=== PATIENT | female | born 2000 | race African-American/Black ===

== ENCOUNTER 2021-04-02 09:32 | Emergency (ER) | payer OTHER ==
[2021-04-02 10:24] LABS: BASOPHILS % (AUTO) 0.2 %; EOSINOPHILS % (AUTO) 0.7 %; HCT - HEMATOCRIT 35.4 % (37.0-47.0); HGB - HEMOGLOBIN 11.5 g/dL (12.0-16.0); MEAN CORPUSCULAR HEMOGLOBIN 28.7 pg (27.0-31.0); MEAN CORPUSCULAR HGB CONC 32.5 g/dL (32.0-36.0); MEAN CORPUSCULAR VOLUME 88.3 fL (81.0-99.0); MEAN PLATELET VOLUME 12.9 fL (7.9-10.8); MONOCYTES % (AUTO) 8.9 %; PLT - PLATELET COUNT 152 10^3/uL (130-450); RED BLOOD COUNT 4.01 10^6/uL (4.20-5.40); RED CELL DISTRIBUTION WIDTH 13.1 % (12.0-15.0); WHITE BLOOD COUNT 5.7 x10^3/uL (4.8-10.8)
[2021-04-02 10:26] LABS: ABNORMAL LYMPHS % (MANUAL) 0 %; BAND NEUTROPHILS % (MANUAL) 0 %
[2021-04-02 10:31] LABS: ALBUMIN 4.3 g/dL (3.2-5.5); ALBUMIN/GLOBULIN RATIO 1.5 (1.0-2.2); BILIRUBIN,TOTAL 0.7 mg/dL (0.2-1.0); CALCIUM 9.1 mg/dL (8.5-10.3); CREATININE 0.8 mg/dL (0.4-1.0); POTASSIUM 3.5 mmol/L (3.5-5.0); TOTAL PROTEIN 7.2 g/dL (6.7-8.2)
[2021-04-02 10:57] LABS: BASOPHILS # (MANUAL) 0.1 10^3/uL (0-0.1); BASOPHILS % (MANUAL) 2 %; EOSINOPHILS # (MANUAL) 0.1 10^3/uL (0-0.7); LYMPHOCYTES # (MANUAL) 2.2 10^3/uL (1.5-3.5); LYMPHOCYTES % (MANUAL) 35 %; MONOCYTES # (MANUAL) 0.4 10^3/uL (0.0-1.0); NEUTROPHILS # (MANUAL) 2.9 10^3/uL (1.5-6.6); REACTIVE LYMPHS % (MANUAL) 4 %
[2021-04-02 10:58] LABS: DIFFERENTIAL COMMENT MANUAL DIFFERENTIAL; PLATELET MORPHOLOGY RARE GIANT PLATELETS (NORMAL); WBC MORPHOLOGY (MULTIPLE) 1+ REACTIVE LYMPHS (NORMAL)
--- NOTE | 2021-04-02 12:07 | ED Physician Documentation ---
History of Present Illness - Stated complaint Stated Complaint: FEMAL - Chief complaint Chief Complaint: Abd Pain - Additonal information Additional information: 21-year-old female presents emergency department for evaluation of cramping and heavy menstrual flow. Reports that her cycle began yesterday. LMP was 03/02/2021. She reports that she has Nexplanon in place but over the last 6 months or so she is typically been getting 1-2 cycles per month each lasting 3 to 4 days. Over the last 15 or so hours she has used about seven tampons which she feels is excessive. She has had no chest pain, shortness of air, nausea or near syncope. She has taken ibuprofen without relief of the menstrual cramping. No fevers. Denies any pertinent past medical or surgical history. Review of Systems Constitutional: denies: Fever, Chills Eyes: reports: Reviewed and negative Throat: reports: Reviewed and negative Cardiac: reports: Reviewed and negative Respiratory: reports: Reviewed and negative GI: reports: Reviewed and negative : reports: LMP (03/02/2021), Vaginal bleeding, Irregular menses. denies: Dysuria, Frequency, Hesitancy Skin: reports: Reviewed and negative Musculoskeletal: reports: Reviewed and negative Neurologic: reports: Reviewed and negative PD PAST MEDICAL HISTORY - Allergies Allergies/Adverse Reactions: Allergies Allergy/AdvReac Type Severity Reaction Status Date / Time No Known Drug Allergies Allergy Verified 04/02/21 10:01 PD ED PE NORMAL - General General: Alert and oriented X 3, No acute distress - HEENT HEENT: PERRL - Neck Neck: Supple, no meningeal sign, No adenopathy - Cardiac Cardiac: RRR, No murmur, No gallop - Respiratory Respiratory: No respiratory distress, Clear bilaterally - Abdomen Abdomen: Normal bowel sounds, Soft, Non distended. No: Non tender (Very mild lower midline pelvic tenderness. No guarding or rebound. Nonlateralizing.) - Back Back: No CVA TTP, No spinal TTP - Derm Derm: Normal color, Warm and dry, No rash - Neuro Neuro: Alert and oriented X 3, automobile parker 2-12 intact, No motor deficit Eye Opening: Spontaneous Motor: Obeys Commands Verbal: Oriented GCS Score: 15 - Psych Psych: Normal mood Results - Vitals Vitals: Vital Signs - 24 hr 04/02/21 04/02/21 09:56 12:25 Temperature 37.1 C Heart Rate 79 65 Respiratory 15 20 Rate Blood Pressure 102/68 178/73 H O2 Saturation 99 98 Oxygen O2 Source Room air - Labs Labs: Laboratory Tests 04/02/21 04/02/21 04/02/21 10:12 10:12 12:15 WBC 5.7 RBC 4.01 L Hgb 11.5 L Hct 35.4 L MCV 88.3 MCH 28.7 MCHC 32.5 RDW 13.1 Plt Count 152 MPV 12.9 H Neut # (Auto) Not Reportable Lymph # (Auto) Not Reportable [place] # (Auto) Not Reportable Eos # (Auto) Not Reportable Baso # (Auto) Not Reportable Absolute Nucleated RBC Not Reportable Total Counted 100 Band Neuts % (Manual) 0 Reactive Lymphs % (Man) 4 Abnorm Lymph % (Manual) 0 Nucleated RBC % Not Reportable Neutrophils # (Manual) 2.9 Lymphocytes # (Manual) 2.2 Monocytes # (Manual) 0.4 Eosinophils # (Manual) 0.1 Basophils # (Manual) 0.1 Differential Comment MANUAL DIFFERENTIAL WBC Morphology 1+ REACTIVE LYMPHS Platelet Morphology RARE GIANT PLATELETS Sodium 136 Potassium 3.5 Chloride 102 Carbon Dioxide 25 Anion Gap 9.0 BUN 12 Creatinine 0.8 Estimated GFR (MDRD) 110 Glucose 100 Calcium 9.1 Total Bilirubin 0.7 AST 22 ALT 18 Alkaline Phosphatase 38 L Total Protein 7.2 Albumin 4.3 Globulin 2.9 Albumin/Globulin Ratio 1.5 Lipase 22 Urine Color DARK YELLOW Urine Clarity CLEAR Urine pH 6.0 Ur Specific [place] >=1.030 H Urine Protein NEGATIVE Urine Glucose (UA) NEGATIVE Urine Ketones TRACE Urine Occult Blood TRACE-INTA Urine Nitrite NEGATIVE Urine Bilirubin NEGATIVE Urine Urobilinogen 0.2 (NORMAL) Ur Leukocyte Esterase NEGATIVE Ur Microscopic Review NOT INDICATED Urine Culture Comments NOT INDICATED Urine HCG, Qual NEGATIVE PD MEDICAL DECISION MAKING - ED course Complexity details: reviewed results, re-evaluated patient, considered differential, d/w patient ED course: 21-year-old female presents emergency department for heavier than expected vaginal bleeding/menstrual cycle that began yesterday. Since midnight she has used about 7 pads or tampons. No syncope. No chest pain or shortness of air. Screening labs reveal a very mild anemia with a hemoglobin of 11.5. Her electrolytes are otherwise unrevealing. She is not . Abdominal exam revealed a little bit of lower midline tenderness but nonfocal, nonlateralizing and nonperitoneal. Will defer pelvic ultrasound today. Patient does report that over the last 6 months she has begun to have 1-2 menstrual cycles a month. I have advised her to have very close follow-up with OB. She likely would benefit from an outpatient ultrasound to evaluate for other disorder such as fibroids. Emergent worrisome return precautions were discussed. Departure - Departure Disposition: 01 Home, Self Care Clinical Impression: Menorrhagia with irregular cycle Condition: Stable Record reviewed to determine appropriate education?: Yes Instructions: ED Bleeding Menstrual Heavy Comments: You were seen in the emergency department today for heavier than expected vaginal bleeding in your menstrual cycle as well as pelvic cramping. Your screening labs did not show any worrisome findings. Your hemoglobin is 11.5 which is just below the cutoff for normal. Your irregular menstrual cycles may be related to the Nexplanon however you should see [facility] and be referred for a pelvic ultrasound. Sometimes uterine fibroids can cause irregular and heavier than expected menstrual cycles with increased cramping. I recommend that you take Tylenol or ibuprofen [id number] for discomfort. Heating pad may help. Sometimes women will find relief from menstrual cramps by simply doing physical activity such as sit ups. If at any point you have fainting episodes, feel faint or lightheaded, have a resting heart rate greater than 120 or your bleeding does not improve after about 10 days and you are to return immediately to the ER for second evaluation.
[2021-04-02 12:38] LABS: BILIRUBIN,URINE NEGATIVE (NEGATIVE); GLUCOSE, URINE (UA) NEGATIVE (NEGATIVE); KETONES,URINE (UA) TRACE mg/dL (NEGATIVE); LEUKOCYTE ESTERASE, URINE NEGATIVE (NEGATIVE); NITRITE,URINE NEGATIVE (NEGATIVE); OCCULT BLOOD,URINE TRACE-INTA (NEGATIVE); PROTEIN,URINE NEGATIVE (NEGATIVE); UROBILINOGEN,URINE 0.2 (NORMAL) E.U./dL (NORMAL)
[2021-04-02 12:41] LABS: CLARITY,URINE CLEAR (CLEAR); HCG UR QUAL NEGATIVE
[2021-04-02 13:20] VITALS: BP 106/70
== END 2021-04-02 13:19 | disposition home or self-care (01) ==
LOC: ED 09:32
DX: N92.0 Excessive and frequent menstruation with regular cycle (principal); N92.6 Irregular menstruation, unspecified; D64.9 Anemia, unspecified
CPT/HCPCS: 36415; 80053; 81001; 81003; 81025; 83690; 85025; 87086; 99282; 99284

== ENCOUNTER 2021-05-20 12:44 | Emergency (ER) | payer OTHER ==
[2021-05-20 12:52] VITALS: BP 131/79
--- NOTE | 2021-05-20 13:15 | ED Physician Documentation ---
History of Present Illness - Stated complaint Stated Complaint: FEMALE - Chief complaint Chief Complaint: UTI - Additonal information Additional information: 21-year-old female presents emergency department for evaluation of dysuria, urge ncy and frequency. Symptoms began yesterday evening. Denies any fevers. She does have some low back pain. Reports urinary tract infections in the past and this feels similar. She did take some Azo/Pyridium this morning. No recent sexual activity. Review of Systems Constitutional: denies: Fever, Chills Eyes: reports: Reviewed and negative Throat: reports: Reviewed and negative Cardiac: reports: Reviewed and negative Respiratory: reports: Reviewed and negative GI: reports: Nausea : reports: Dysuria, Frequency. 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 : None HEENT: None Psych: None Musculoskeletal: None Derm: None - Past Surgical History Past Surgical History: No - Present Medications Home Medications: Ambulatory Orders Medication Instructions Recorded Confirmed Cefpodoxime Proxetil [Vantin] 100 mg PO Q12H #10 tablet 05/20/21 - Allergies Allergies/Adverse Reactions: Allergies Allergy/AdvReac Type Severity Reaction Status Date / Time No Known Drug Allergies Allergy Verified 05/20/21 12:50 - Social History Does the pt smoke?: No Smoking Status: Never smoker Does the pt drink ETOH?: No Does the pt have substance abuse?: No - Immunizations Immunizations are current?: Yes PD ED PE NORMAL - General General: Alert and oriented X 3, No acute distress - HEENT HEENT: PERRL - Neck Neck: Supple, no meningeal sign, No adenopathy - Cardiac Cardiac: RRR, No murmur - Respiratory Respiratory: No respiratory distress, Clear bilaterally - Abdomen Abdomen: Normal bowel sounds, Soft. No: Non tender (Mild suprapubic tenderness. No flank or CVA tenderness.No guarding or rebound.) - Rectal Rectal: Deferred, Pt declined - Derm Derm: Normal color, Warm and dry, No rash - Extremities Extremities: No deformity, No tenderness to palpate, Normal ROM s pain - Neuro Neuro: Alert and oriented X 3, stone polisher machine 2-12 intact Eye Opening: Spontaneous Motor: Obeys Commands Verbal: Oriented GCS Score: 15 - Psych Psych: Normal mood, Normal affect Results - Vitals Vitals: Vital Signs - 24 hr 05/20/21 12:50 Temperature 36.8 C Heart Rate 70 Respiratory 16 Rate Blood Pressure 131/79 H O2 Saturation 100 Oxygen O2 Source Room air - Labs Labs: Laboratory Tests 05/20/21 13:10 Urine Color DK. ORANGE Urine Clarity HAZY Urine pH 6.5 Ur Specific [place] 1.025 Urine Protein Urine Glucose (UA) Urine Ketones TRACE Urine Occult Blood Urine Nitrite Urine Bilirubin NEGATIVE Urine Urobilinogen Ur Leukocyte Esterase Urine RBC TNTC H Urine WBC >25 H Ur Squamous Epith Cells FEW Squamous Urine Bacteria Moderate H Ur Microscopic Review INDICATED Urine Culture Comments INDICATED Urine HCG, Qual NEGATIVE PD MEDICAL DECISION MAKING - ED course Complexity details: reviewed results, considered differential, d/w patient ED course: 21-year-old female presents emergency department for evaluation of acute dysuria urgency and frequency. Symptoms began about 24 hours ago. No fevers flank pain or vomiting. UA though she has had Pyridium, is consistent with acute cystitis. Clinically no findings to suggest a sending infection or Pyelo. We will start the patient on a course of Vantin. Emergent worrisome return precautions discussed Departure - Departure Disposition: 01 Home, Self Care Clinical Impression: Acute cystitis Qualifiers: Hematuria presence: without hematuria Qualified Code(s): N30.00 - Acute cystitis without hematuria Condition: Stable Record reviewed to determine appropriate education?: Yes Instructions: ED UTI Cystitis Female Prescriptions: Cefpodoxime Proxetil [Vantin] 100 mg PO Q12H #10 tablet Comments: You were seen today in the emergency department for painful and frequent urination. Your urine does show that you have an infection. [place] I would expect improved symptoms within the next 24 to 48 hours. If you find your symptoms are worsening, you develop fevers have upper abdominal pain or uncontrolled vomiting then please return to the ER for second evaluation
[2021-05-20 13:27] LABS: BILIRUBIN,URINE NEGATIVE (NEGATIVE); KETONES,URINE (UA) TRACE mg/dL (NEGATIVE); PH,URINE 6.5 PH (5.0-7.5)
[2021-05-20 13:39] LABS: CLARITY,URINE HAZY (CLEAR); HCG UR QUAL NEGATIVE
[2021-05-20 13:45] LABS: RBC,URINE TNTC /HPF (0-5); SQUAMOUS EPITHELIAL CELL,UR FEW Squamous (<= Few); WBC,URINE >25 /HPF (0-5)
[2021-05-20 13:46] LABS: BACTERIA,URINE Moderate /HPF (None Seen)
== END 2021-05-20 14:19 | disposition home or self-care (01) ==
LOC: ED 12:44
DX: N30.00 Acute cystitis without hematuria (principal); M54.50 Low back pain, unspecified
CPT/HCPCS: 81001; 81003; 81025; 87077; 87086; 99282; 99283

== ENCOUNTER 2021-06-09 16:38 | Emergency (ER) | payer OTHER ==
--- NOTE | 2021-06-09 17:05 | ED Physician Documentation ---
History of Present Illness - Stated complaint Stated Complaint: BACK/CHEST/ABD PX - Chief complaint Chief Complaint: Cardiac - History obtained from History obtained from: Patient - History of Present Illness Pain level max: 3 Pain level now: 1 - Additonal information Additional information: Patient is a 21-year-old female who presents to the emergency department with multiple complaints. She states she has had intermittent sharp chest pain over the past several days. Lasts for 3 to 5 seconds at a time. Nothing makes it better or worse. No shortness of breath. Has never had similar symptoms previously. No nausea or vomiting. She states occasionally she has abdominal cramping as well, described as diffuse, occasionally radiates into her low back. No diarrhea or constipation. No blood in the stool. Denies any possibility of . Nothing makes it better or worse. 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 : None HEENT: None Psych: None Musculoskeletal: None Derm: None - Past Surgical History Past Surgical History: No - Present Medications Home Medications: Ambulatory Orders Medication Instructions Recorded Confirmed No Known Home Medications 06/09/21 06/09/21 - Allergies Allergies/Adverse Reactions: Allergies Allergy/AdvReac Type Severity Reaction Status Date / Time No Known Drug Allergies Allergy Verified 06/09/21 16:41 - Social History Does the pt smoke?: No Smoking Status: Never smoker Does the pt drink ETOH?: No Does the pt have substance abuse?: No - Immunizations Immunizations are current?: Yes PD ED PE NORMAL - Vitals Vital signs reviewed: Yes - General General: Alert and oriented X 3, No acute distress - HEENT HEENT: Moist mucous membranes - Neck Neck: Supple, no meningeal sign - Cardiac Cardiac: RRR - Respiratory Respiratory: No respiratory distress, Clear bilaterally - Abdomen Abdomen: Soft, Non tender, Non distended - Back Back: No CVA TTP - Derm Derm: Warm and dry, No rash - Extremities Extremities: No edema - Neuro Neuro: Alert and oriented X 3 - Psych Psych: Normal mood, Normal affect Results - Vitals Vitals: Vital Signs - 24 hr 06/09/21 06/09/21 06/09/21 16:41 17:07 18:11 Temperature 37.4 C Heart Rate 78 80 71 Respiratory 16 25 H 18 Rate Blood Pressure 129/64 120/77 O2 Saturation 99 100 100 06/09/21 19:14 Temperature Heart Rate 72 Respiratory 16 Rate Blood Pressure 119/76 O2 Saturation 98 Oxygen O2 Source Room air - EKG (time done) 1701 Rate: Rate (enter#) (71) Rhythm: NSR Intervals: Normal VA QRS: Normal Ischemia: Normal ST segments - Labs Labs: Laboratory Tests 06/09/21 06/09/21 06/09/21 16:51 17:05 17:05 WBC 5.0 RBC 3.92 L Hgb 11.2 L Hct 34.3 L MCV 87.5 MCH 28.6 MCHC 32.7 RDW 13.9 Plt Count 143 MPV 12.2 H Neut # (Auto) Not Reportable Lymph # (Auto) Not Reportable [place] # (Auto) Not Reportable Eos # (Auto) Not Reportable Baso # (Auto) Not Reportable Absolute Nucleated RBC Not Reportable Total Counted 100 Band Neuts % (Manual) 0 Reactive Lymphs % (Man) 3 Abnorm Lymph % (Manual) 0 Nucleated RBC % Not Reportable Neutrophils # (Manual) 2.2 Lymphocytes # (Manual) 2.2 Monocytes # (Manual) 0.5 Eosinophils # (Manual) 0.1 Basophils # (Manual) 0.1 Differential Comment MANUAL DIFFERENTIAL Platelet Estimate NORMAL (130-450,000) Platelet Morphology 1+ GIANT PLATELETS RBC Morph Micro Appear NORMAL APPEARANCE Sodium 135 Potassium 3.7 Chloride 104 Carbon Dioxide 24 Anion Gap 7.0 BUN 10 Creatinine 0.8 Estimated GFR (MDRD) 110 Glucose 81 Calcium 9.0 Total Bilirubin 0.5 AST 18 ALT 13 Alkaline Phosphatase 37 L Troponin I High Sens Total Protein 6.8 Albumin 3.8 Globulin 3.0 Albumin/Globulin Ratio 1.3 Lipase 30 HCG, Quant Urine Color YELLOW Urine Clarity CLEAR Urine pH 6.0 Ur Specific [place] 1.010 Urine Protein NEGATIVE Urine Glucose (UA) NEGATIVE Urine Ketones NEGATIVE Urine Occult Blood NEGATIVE Urine Nitrite NEGATIVE Urine Bilirubin NEGATIVE Urine Urobilinogen 0.2 (NORMAL) Ur Leukocyte Esterase NEGATIVE Ur Microscopic Review NOT INDICATED Urine Culture Comments NOT INDICATED Urine HCG, Qual POSITIVE 06/09/21 06/09/21 17:05 17:05 WBC RBC Hgb Hct MCV MCH MCHC RDW Plt Count MPV Neut # (Auto) Lymph # (Auto) [place] # (Auto) Eos # (Auto) Baso # (Auto) Absolute Nucleated RBC Total Counted Band Neuts % (Manual) Reactive Lymphs % (Man) Abnorm Lymph % (Manual) Nucleated RBC % Neutrophils # (Manual) Lymphocytes # (Manual) Monocytes # (Manual) Eosinophils # (Manual) Basophils # (Manual) Differential Comment Platelet Estimate Platelet Morphology RBC Morph Micro Appear Sodium Potassium Chloride Carbon Dioxide Anion Gap BUN Creatinine Estimated GFR (MDRD) Glucose Calcium Total Bilirubin AST ALT Alkaline Phosphatase Troponin I High Sens < 2.3 L Total Protein Albumin Globulin Albumin/Globulin Ratio Lipase HCG, Quant 595.95 Urine Color Urine Clarity Urine pH Ur Specific [place] Urine Protein Urine Glucose (UA) Urine Ketones Urine Occult Blood Urine Nitrite Urine Bilirubin Urine Urobilinogen Ur Leukocyte Esterase Ur Microscopic Review Urine Culture Comments Urine HCG, Qual - Rads (name of study) cxr Radiology: Final report received, EMP read contemporaneously, See rad report (No acute abnormality) OB ultrasound Radiology: Final report received, EMP read contemporaneously, See rad report PD MEDICAL DECISION MAKING - ED course Complexity details: reviewed results, re-evaluated patient, considered differential (No ST elevation [place], no aortic dissection, no PE, no tension pneumothorax, no aortic aneurysm), d/w patient, d/w outplacement consultant ED course: No significant findings on laboratory testing, EKG or chest x-ray to explain her chest pain. Her test did come back positive. Her quantitative hCG is 595. Pelvic ultrasound was ordered as she was having abdominal pain and low back pain. The ultrasound shows an anechoic sac in the uterus, possible early gestational sac. Possible corpus luteal cyst in the right ovary with an isoechoic lesion, alternative diagnoses may include ectopic . Patient is currently asymptomatic. Discussed the case with Dr. West, OB on-call who recommends follow-up in the office for repeat ultrasound within a week. We will have the patient call the office to arrange this. Ectopic precautions given at bedside. Patient is currently pain-free. Patient counseled regarding signs and symptoms for which I believe and urgent re-evaluation would be necessary. Patient with good understanding of and agreement to plan and is comfortable going home at this time This document was made in part using voice recognition software. While efforts are made to proofread this document, sound alike and grammatical errors may occur. FINDINGS: Embryo: Anechoic sac noted in the uterus which may represent a gestational sac. No sacral or pole identified. Mean sac diameter measures 0.2 cm which corresponds to ultrasound estimated gestational age of 4 weeks 6 days. Heart rate: No heart motion identified. Measurement variability in dating: +/- 4 weeks by LMP, +/- 7 days by mean sac diameter (use before 6 weeks gestation if crown-rump length not able to be measured), +/- 5 days by crown-rump length (6- 12 weeks gestation). Maternal organs: There is a 2.2 x 1.8 x 2.9 cm isoechoic lesion in the right ovary which may represent corpus luteal cysts. Simple cyst noted in the left ovary. IMPRESSION: Anechoic sac in the uterus which may represent early intrauterine , nonviable or occult ectopic . Recommend close clinical observation, correlation with serial beta hCG and short-term follow-up obstetrical ultrasound in one week. 2.2 x 1.8 x 2.9 cm isoechoic lesion in the right ovary may represent a corpus luteal cyst. Recommend reevaluation at the time of follow-up imaging in one week. Departure - Departure Disposition: 01 Home, Self Care Clinical Impression: Positive test Chest pain Qualifiers: Chest pain type: unspecified Qualified Code(s): R07.9 - Chest pain, unspecified Condition: Stable Instructions: ED Abdominal Pain Rule Out Ectopic, ED Care Follow-Up: Simone West MD [Provider Admit Priv/Credential] - [facility] [Provider Group] Comments: Your test was positive today. Your hCG level is around 595. This is consistent with early . Your ultrasound does not show a fetus yet, they are recommending a repeat ultrasound in 1 week. Please return for worsening symptoms including worsening pain, vomiting, fevers or other new or worrisome symptoms. Otherwise call the women's health office tomorrow for an appointment at the end of the week or early next week for repeat ultrasound. I did speak with Dr. Brett kumari. FINDINGS: Embryo: Anechoic sac noted in the uterus which may represent a gestational sac. No sacral or pole identified. Mean sac diameter measures 0.2 cm which corresponds to ultrasound estimated gestational age of 4 weeks 6 days. Heart rate: No heart motion identified. Measurement variability in dating: +/- 4 weeks by LMP, +/- 7 days by mean sac diameter (use before 6 weeks gestation if crown-rump length not able to be measured), +/- 5 days by crown-rump length (6- 12 weeks gestation). Maternal organs: There is a 2.2 x 1.8 x 2.9 cm isoechoic lesion in the right ovary which may represent corpus luteal cysts. Simple cyst noted in the left ovary.
[2021-06-09 17:09] LABS: BILIRUBIN,URINE NEGATIVE (NEGATIVE); GLUCOSE, URINE (UA) NEGATIVE (NEGATIVE); KETONES,URINE (UA) NEGATIVE (NEGATIVE); LEUKOCYTE ESTERASE, URINE NEGATIVE (NEGATIVE); NITRITE,URINE NEGATIVE (NEGATIVE); OCCULT BLOOD,URINE NEGATIVE (NEGATIVE); PROTEIN,URINE NEGATIVE (NEGATIVE); UROBILINOGEN,URINE 0.2 (NORMAL) E.U./dL (NORMAL)
[2021-06-09 17:12] LABS: CLARITY,URINE CLEAR (CLEAR); HCG UR QUAL POSITIVE
[2021-06-09 17:15] LABS: BASOPHILS % (AUTO) 0.4 %; EOSINOPHILS % (AUTO) 2.4 %; HCT - HEMATOCRIT 34.3 % (37.0-47.0); HGB - HEMOGLOBIN 11.2 g/dL (12.0-16.0); LYMPHOCYTES % (AUTO) 42.9 %; MEAN CORPUSCULAR HEMOGLOBIN 28.6 pg (27.0-31.0); MEAN CORPUSCULAR HGB CONC 32.7 g/dL (32.0-36.0); MEAN CORPUSCULAR VOLUME 87.5 fL (81.0-99.0); MEAN PLATELET VOLUME 12.2 fL (7.9-10.8); MONOCYTES % (AUTO) 11.1 %; PLT - PLATELET COUNT 143 10^3/uL (130-450); RED BLOOD COUNT 3.92 10^6/uL (4.20-5.40); RED CELL DISTRIBUTION WIDTH 13.9 % (12.0-15.0)
[2021-06-09 17:17] LABS: ABNORMAL LYMPHS % (MANUAL) 0 %; BAND NEUTROPHILS % (MANUAL) 0 %
[2021-06-09 17:25] LABS: ALBUMIN 3.8 g/dL (3.2-5.5); ALBUMIN/GLOBULIN RATIO 1.3 (1.0-2.2); BILIRUBIN,TOTAL 0.5 mg/dL (0.2-1.0); CREATININE 0.8 mg/dL (0.4-1.0); POTASSIUM 3.7 mmol/L (3.5-5.0); TOTAL PROTEIN 6.8 g/dL (6.7-8.2)
--- NOTE | 2021-06-09 17:36 | XRAY Report ---
PROCEDURE: Chest 1 View X-Ray INDICATIONS: Chest Pain TECHNIQUE: One view of the chest was acquired. COMPARISON: None FINDINGS: Surgical changes and devices: None. Lungs and pleura: No pleural effusions or pneumothorax. Lungs are clear. Mediastinum: Mediastinal contours appear normal. Heart size is normal. Bones and chest wall: No suspicious bony lesions. Overlying soft tissues appear unremarkable. IMPRESSION: Normal portable chest. No pneumothorax. Reviewed by: Marty Huertas MD on 06/09/2021 4:35 PM QUAN Approved by: Marty Huertas MD on 06/09/2021 4:35 PM QUAN Station ID: [id number]
[2021-06-09 17:38] LABS: BASOPHILS # (MANUAL) 0.1 10^3/uL (0-0.1); BASOPHILS % (MANUAL) 1 %; DIFFERENTIAL COMMENT MANUAL DIFFERENTIAL; EOSINOPHILS # (MANUAL) 0.1 10^3/uL (0-0.7); LYMPHOCYTES # (MANUAL) 2.2 10^3/uL (1.5-3.5); LYMPHOCYTES % (MANUAL) 41 %; MONOCYTES # (MANUAL) 0.5 10^3/uL (0.0-1.0); NEUTROPHILS # (MANUAL) 2.2 10^3/uL (1.5-6.6); PLATELET ESTIMATE, MANUAL NORMAL (130-450,000) (NORMAL); PLATELET MORPHOLOGY 1+ GIANT PLATELETS (NORMAL); RBC MORPHOLOGY (MULTIPLE) NORMAL APPEARANCE (NORMAL); REACTIVE LYMPHS % (MANUAL) 3 %
--- NOTE | 2021-06-09 19:50 | Ultrasound Report ---
PROCEDURE: OB First Trimester w/TV INDICATIONS: pelvic pain +preg test OUTSIDE/PRIOR DATING DATA: Last menstrual period (LMP): Not known. LMP-based estimated date of delivery (LOGAN): Not applicable. First dating scan (date and location): Not applicable Estimated date of delivery (LOGAN) from first dating scan: Not applicable. TECHNIQUE: Real-time scanning was performed of the fetus and maternal pelvic organs, with image documentation. Endovaginal scanning was also performed to better visualize the fetus and maternal ovaries. COMPARISON: None FINDINGS: Embryo: Anechoic sac noted in the uterus which may represent a gestational sac. No sacral or p ole identified. Mean sac diameter measures 0.2 cm which corresponds to ultrasound estimated gestation al age of 4 weeks 6 days. Heart rate: No heart motion identified. Measurement variability in dating: +/- 4 weeks by LMP, +/- 7 days by mean sac diameter (use before 6 weeks gestation if crown-rump length not able to be measured), +/- 5 days by crown-rump length (6-12 weeks gestation). Maternal organs: There is a 2.2 x 1.8 x 2.9 cm isoechoic lesion in the right ovary which may represen t corpus luteal cysts. Simple cyst noted in the left ovary. IMPRESSION: Anechoic sac in the uterus which may represent early intrauterine , nonviable or o ccult ectopic . Recommend close clinical observation, correlation with serial beta hCG and s hort-term follow-up obstetrical ultrasound in one week. 2.2 x 1.8 x 2.9 cm isoechoic lesion in the right ovary may represent a corpus luteal cyst. Recommend reevaluation at the time of follow-up imaging in one week. Reviewed by: Raya Zamora MD, PhD on 06/09/2021 7:49 PM PDT Approved by: Raya Zamora MD, PhD on 06/09/2021 7:49 PM PDT Station ID: [id number]
[2021-06-09 20:24] VITALS: BP 117/64
== END 2021-06-09 20:24 | disposition home or self-care (01) ==
LOC: ED 16:38
DX: R07.9 Chest pain, unspecified (principal); Z32.01 Encounter for pregnancy test, result positive
CPT/HCPCS: 36415; 80053; 81001; 81003; 81025; 83690; 84484; 84702; 85025; 87086; 93005; 99284

== ENCOUNTER 2022-02-07 02:50 | Inpatient (IN) | payer OTHER ==
[2022-02-07] MEDS ORDERED: TERBUTALINE 1 MG/ML VIAL SUBQ PRN (03:48)
[2022-02-07] MEDS ORDERED: miSOPROStoL 200 MCG TABLET PR PRN (03:48)
[2022-02-07] MEDS ORDERED: lidocaine 1% 20 ML MDV ID PRN (03:48)
[2022-02-07] MEDS ORDERED: METHYLERGONOVINE 0.2 MG/ML VIAL IM PRN (03:48)
[2022-02-07] MEDS ORDERED: OXYTOCIN 10 UNIT/ML VIAL IM PRN (03:48)
[2022-02-07] MEDS ORDERED: LABETALOL 20 MG/4 ML SYRINGE IVP PRN ×3 (03:48)
[2022-02-07] MEDS ORDERED: LACTATED RINGERS 500 ML IV ONE (03:48)
[2022-02-07] MEDS ORDERED: NIFEdipine 10 MG CAPSULE PO PRN (03:48)
[2022-02-07] MEDS ORDERED: miSOPROStoL 200 MCG TABLET BC PRN (03:48)
[2022-02-07] MEDS ORDERED: TRANEXAMIC ACID IN NACL 1,000 MG/100 ML BAG IV PRN (03:48)
[2022-02-07] MEDS ORDERED: OXYTOCIN/SODIUM CHLORIDE 500 ML IV PRN (03:48)
[2022-02-07] MEDS ORDERED: SODIUM CHLORIDE FLUSH 0.9% 10 ML SYRINGE IVP PRN (03:48)
[2022-02-07] MEDS ORDERED: hydrALAZINE INJ 20 MG/ML VIAL IVP PRN ×2 (03:48)
[2022-02-07] MEDS ORDERED: fentaNYL 100 MCG/2 ML VIAL IVP PRN (03:48)
[2022-02-07] MEDS ORDERED: CARBOPROST TROMETHAMINE 250 MCG/ML AMP IM PRN (03:48)
[2022-02-07] MEDS ORDERED: SODIUM CHLORIDE FLUSH 0.9% 10 ML SYRINGE IVP SCH (04:00)
[2022-02-07] MEDS ORDERED: DOCUSATE SODIUM 100 MG CAPSULE PO SCH (04:20)
[2022-02-07 04:34] LABS: BASOPHILS % (AUTO) 0.2 %; EOSINOPHILS % (AUTO) 0.5 %; HGB - HEMOGLOBIN 10.4 g/dL (12.0-16.0); LYMPHOCYTES # (AUTO) 2.1 10^3/uL (1.5-3.5); MEAN CORPUSCULAR HEMOGLOBIN 28.3 pg (27.0-31.0); MEAN CORPUSCULAR HGB CONC 32.5 g/dL (32.0-36.0); MEAN CORPUSCULAR VOLUME 87.2 fL (81.0-99.0); MEAN PLATELET VOLUME 12.5 fL (7.9-10.8); MONOCYTES # (AUTO) 0.8 10^3/uL (0.0-1.0); MONOCYTES % (AUTO) 10.1 %; NEUTROPHILS # (AUTO) 5.2 10^3/uL (1.5-6.6); NEUTROPHILS % (AUTO) 62.8 %; PLT - PLATELET COUNT 133 10^3/uL (130-450); RED BLOOD COUNT 3.67 10^6/uL (4.20-5.40); RED CELL DISTRIBUTION WIDTH 14.9 % (12.0-15.0); WHITE BLOOD COUNT 8.2 x10^3/uL (4.8-10.8)
[2022-02-07] MEDS: LACTATED RINGERS 1,000 ML IV SCH ×2 (04:38→09:16)
[2022-02-07 04:48] LABS: ALBUMIN/GLOBULIN RATIO 0.8 (1.0-2.2); BILIRUBIN,TOTAL 0.3 mg/dL (0.2-1.0); CALCIUM 8.8 mg/dL (8.5-10.3); CREATININE 0.5 mg/dL (0.4-1.0); POTASSIUM 3.8 mmol/L (3.5-5.0); TOTAL PROTEIN 6.6 g/dL (6.7-8.2)
[2022-02-07] MEDS ORDERED: ROPIVACAINE 0.2% 200 MG/100 ML BAG EP ONE (04:59)
[2022-02-07] MEDS ORDERED: diphenhydrAMINE INJ 50 MG/ML VIAL IVP PRN (05:48)
[2022-02-07] MEDS ORDERED: NALBUPHINE 10 MG/ML AMP IVP PRN (05:48)
[2022-02-07] MEDS ORDERED: ONDANSETRON 4 MG/2 ML VIAL IVP PRN (05:48)
[2022-02-07] MEDS ORDERED: ROPIVACAINE 0.2% 200 MG/100 ML BAG EP PRN (05:48)
[2022-02-07] MEDS ORDERED: NALOXONE 0.4 MG/ML VIAL IVP PRN (05:48)
[2022-02-07] MEDS ORDERED: ePHEDrine 50 MG/ML VIAL IVP PRN (05:48)
[2022-02-07] MEDS ORDERED: METOCLOPRAMIDE 10 MG/2 ML VIAL IVP PRN (05:48)
--- NOTE | 2022-02-07 05:51 | ANESTHESIA ---
Pre-Anesthesia VS, & Labs - Diagnosis active labor - Procedure labor epidural Vital Signs: Temp Pulse Resp BP Pulse Ox O2 Flow Rate 36.9 C 85 18 139/83 H 02/07/22 03:57 02/07/22 03:15 02/07/22 03:15 02/07/22 03:15 Height: 5 ft 8 in Weight (kg): 88.451 kg Body Mass Index: 29.6 BMI Classification: Overweight - NPO Other - Is Patient ?: Yes - Lab Results Current Lab Results: Laboratory Tests 02/07/22 05:40: Blood Type Recheck O POSITIVE 02/07/22 04:30: Sodium 134 L, Potassium 3.8, Chloride 103, Carbon Dioxide 22, Anion Gap 9.0, BUN 7, Creatinine 0.5, Estimated GFR (MDRD) 189, Glucose 92, Calcium 8.8, Total Bilirubin 0.3, AST 22, ALT 19, Alkaline Phosphatase 122 H, Total Protein 6.6 L, Albumin 3.0 L, Globulin 3.6, Albumin/Globulin Ratio 0.8 L 02/07/22 04:30: WBC 8.2, RBC 3.67 L, Hgb 10.4 L, Hct 32.0 L, MCV 87.2, MCH 28.3, MCHC 32.5, RDW 14.9, Plt Count 133, MPV 12.5 H, Neut # (Auto) 5.2, Lymph # (Auto) 2.1, [place] # (Auto) 0.8, Eos # (Auto) 0.0, Baso # (Auto) 0.0, Absolute Nucleated RBC 0.00, Nucleated RBC % 0.0 02/07/22 04:20: Blood Type O POSITIVE, Antibody Screen NEGATIVE Fish Bones: 02/07/22 04:30 02/07/22 04:30 Home Medications and Allergies Active Medications Carboprost Tromethamine (Carboprost Tromethamine 250 Mcg/Ml Amp) 250 mcg IM .ONCE PRN PRN Reason: Hemorrhage Fentanyl (Fentanyl 100 Mcg/2 Ml Vial) 50 mcg IVP Q1H PRN PRN Reason: Severe Pain (score 7-10) Hydralazine HCl (Hydralazine Inj 20 Mg/Ml Vial) 5 - 10 mg IVP Q20M PRN; Protocol PRN Reason: SBP> or= 160 OR DBP> or= 110 Hydralazine HCl (Hydralazine Inj 20 Mg/Ml Vial) 10 mg IVP .ONCE PRN; Protocol PRN Reason: SBP> or= 160 OR DBP> or= 110 Oxytocin/Sodium Chloride (Pitocin/Sodium Chloride) 500 mls @ 999 mls/hr IV PRN PRN; Protocol PRN Reason: POST- HEMORR PREVENTION Tranexamic Acid (Tranexamic 1,000 Mg/100ml-Nacl) 1,000 mg in 100 mls @ 600 mls/hr IV Q30M PRN PRN Reason: EBL >1200mL and within 3hr Lactated Ringer's (Lr) 1,000 mls @ 125 mls/hr IV .Q8H JANETT Labetalol HCl (Labetalol 20 Mg/4 Ml Syringe) 20 - 80 mg IVP Q10M PRN; Protocol PRN Reason: SBP> or= 160 OR DBP> or= 110 Labetalol HCl (Labetalol 20 Mg/4 Ml Syringe) 20 mg IVP .ONCE PRN; Protocol PRN Reason: SBP> or= 160 OR DBP> or= 110 Labetalol HCl (Labetalol 20 Mg/4 Ml Syringe) 20 - 40 mg IVP Q10M PRN; Protocol PRN Reason: SBP> or= 160 OR DBP> or= 110 Lidocaine HCl (Lidocaine 1% 20 Ml Mdv) 20 ml ID .ONCE PRN PRN Reason: PERINEAL REPAIR Stop: 02/10/22 03:48 Methylergonovine Maleate (Methylergonovine 0.2 Mg/Ml Vial) 0.2 mg IM .ONCE PRN PRN Reason: Hemorrhage Misoprostol (Misoprostol 200 Mcg Tablet) 600 mcg BC .ONCE PRN PRN Reason: Hemorrhage Misoprostol (Misoprostol 200 Mcg Tablet) 800 mcg WA .ONCE PRN PRN Reason: Hemorrhage Nifedipine (Nifedipine 10 Mg Capsule) 10 - 20 mg PO Q20M PRN; Protocol PRN Reason: SBP> or= 160 OR DBP> or= 110 Oxytocin (Oxytocin 10 Unit/Ml Vial) 10 unit IM .ONCE PRN PRN Reason: Step One if no IV access. Sodium Chloride (Sodium Chloride Flush 0.9% 10 Ml Syringe) 10 ml IVP PRN PRN PRN Reason: NEEDED PER PROVIDER ORDERS Sodium Chloride (Sodium Chloride Flush 0.9% 10 Ml Syringe) 10 ml IVP Q8H JANETT Terbutaline Sulfate (Terbutaline 1 Mg/Ml Vial) 0.25 mg SUBQ .ONCE PRN PRN Reason: Tachystole No Known Home Medications 06/09/21 Allergies/Adverse Reactions: Allergies Allergy/AdvReac Type Severity Reaction Status Date / Time No Known Drug Allergies Allergy Verified 06/09/21 16:41 Anes History & Medical History - Anesthetic History Anesthesia Complications: reports: No previous complications - Medical History Cardiovascular: reports: None Pulmonary: reports: None Gastrointestinal: reports: None Urinary: reports: None Neuro: reports: None Musculoskeletal: reports: None Endocrine/Autoimmune: reports: None Blood Disorders: reports: None Skin: reports: None Smoking Status: Former smoker History of Cancer?: No Exam General: Alert, Oriented x3, Moderate distress Dental: WNL Mouth Opening: Greater than 4 Fingerbreadths Neck Mobility: Normal Mallampati classification: II Thyromental Distance: greater than 6 cm Respiratory: Lungs clear Cardiovascular: Regular rate Plan Anesthesia Type: Epidural Consent for Procedure(s) Verified and Reviewed: Yes Code Status: Attempt Resuscitation ASA classification: 2-Mild systemic disease Is this case an emergency?: No
--- NOTE | 2022-02-07 08:13 | HISTORY & PHYSICAL EXAMINATION ---
Admit History - Visit Reason Visit Reason: Contractions - : 1 Care: positive: Other Risk/History: positive: Other (Patient was treated for syphilis during the ) Complications This : positive: None Smoking Status: Former smoker - Mother's Labs Mother's Blood Type: positive: O Mother's RH: positive: Positive GBS: positive: Group B Step Negative Meds/Allgy - Home Medications Home Medications: Ambulatory Orders Medication Instructions Recorded Confirmed No Known Home Medications 06/09/21 06/09/21 - Allergies Allergies/Adverse Reactions: Allergies Allergy/AdvReac Type Severity Reaction Status Date / Time No Known Drug Allergies Allergy Verified 06/09/21 16:41 Review of Systems - Cardiovascular Cariovascular: denies: Chest pain - Respiratory Respiratory: denies: SOB at rest - Gastrointestinal Gastrointestinal: denies: Abdominal pain - Musculoskeletal Musculoskeletal: denies: Muscle pain - Integumentary Integumentary: denies: Rash - All Other Systems All Other Systems: reports: Reviewed and negative Physical - Abdominal Exam Vital Signs: Temp Pulse Resp BP Pulse Ox O2 Flow Rate 98.4 F 85 18 139/83 H 02/07/22 03:57 02/07/22 03:15 02/07/22 03:15 02/07/22 03:15 Contraction Frequency (min/apart): 4-6 minutes Contraction Intensity: positive: Moderate Uterine Resting Tone: positive: Soft - Monitoring Strip Review: positive: Category I - Presentation Presentation: positive: Vertex - Vaginal Exam Membranes: positive: Membranes intact Plan for Labor - Plan For Labor Plan for Labor: 1. Labor - wellbeing: reassuring -epidural for pain management 2. syphilis -screening RPR and VDRL in records, however, I do not see a confirmatory test. Called [facility] to obtain further labowork
--- NOTE | 2022-02-07 10:18 | DELIVERY NOTE ---
Delivery Note - Labor Labor: positive: Spontaneous - Delivery Method Delivery Method: positive: Spontaneous vaginal delivery - Presentation Presentation: positive: Vertex - Nuchal Cord Nuchal Cord: positive: None - Amniotic Fluid Description Amniotic Fluid Description: positive: Clear - Episiotomy Type Episiotomy Type: positive: None - Laceration Laceration: positive: None - [place]: positive: Placed in direct skin contact with mother, Bulb syringe, [place] used sex: positive: Male - Cord Cord: positive: 3 vessels - Placenta Placenta: positive: Intact, Spontaneous - Estimated Blood Loss Estimated Blood Loss (in cc): 100 - Post Delivery Events Post Delivery Events: positive: No post delivery events - Delivery Comments (Free Text/Narrative) Delivery Comments (Free Text/Narrative): Male atraumatically delivered from GENNY position. No nuchal cord. Clear amniotic fluid. Placenta spontaneously delivered intact, 3vc. No lacerations. 100 mL blood loss.
[2022-02-07] MEDS ORDERED: ACETAMINOPHEN 500 MG TABLET PO SCH (11:00)
[2022-02-07] MEDS ORDERED: IBUPROFEN 800 MG TABLET PO SCH (12:00)
--- NOTE | 2022-02-07 15:16 | Discharge Plan ---
Discharge Plan Problem Reviewed?: Yes Disposition: Home, Self Care Condition: Good Diet: Regular Activity Restrictions: Nothing in the vagina Additional Instructions or Follow Up instructions: Follow up with primary OB doctor in 6 weeks No Smoking: If you smoke, Please STOP! Call for help.
--- NOTE | 2022-02-07 15:19 | DISCHARGE SUMMARY ---
Discharge Summary Admit Date: 02/07/22 Discharge Date: 02/07/22 Discharging Provider: Reese Code Status: Attempt Resuscitation Condition at Discharge: Good Discharge Disposition: 01 Home, Self Care - DIAGNOSES Admission Diagnoses: labor Discharge Diagnoses with Status of Each Condition: normal spontaneous vaginal delivery syphilis in - HPI History of Present Illness: Patient is a who presented at term in labor. - HOSPITAL COURSE Hospital Course: Patient had an uncomplicated normal spontaneous vaginal delivery. was complicated by syphilis, patient received 3 doses of PCN. Partner was also treated. Baby transferred to [place] for IV antibiotics. Mom requesting discharge to stay with baby. - ALLERGIES Allergies/Adverse Reactions: Allergies Allergy/AdvReac Type Severity Reaction Status Date / Time No Known Drug Allergies Allergy Verified 06/09/21 16:41 - MEDICATIONS Home Medications: Ambulatory Orders Medication Instructions Recorded Confirmed No Known Home Medications 06/09/21 06/09/21 - PHYSICAL EXAM AT DISCHARGE General Appearance: positive: No acute distress, Alert Respiratory: positive: No respiratory distress, Breath sounds nml Cardiovascular: positive: Regular rate & rhythm Abdomen: positive: Non-tender (firm fundus below the umbilicus) Skin: positive: Color nml Extremities: positive: Non-tender - LABS Result Diagrams: 02/07/22 04:30 02/07/22 04:30 - FOLLOW UP Follow Up: Follow up with primary OB doctor
[2022-02-07 17:49] VITALS: BP 134/74
--- NOTE | 2022-02-07 18:31 | Labor Flowsheet ---
Labor Flowsheet Datetime Report Generated by CPN: 02/07/2022 18:31 Datetime: 02/07/2022 17:33 VITAL SIGNS NBP Sys/Livier/Mean (mmHg): 134 : 79 : 92 Pulse: 81 COMMUNICATION LaborFlag: Labor Datetime: 02/07/2022 10:24 Membranes Ruptured Date/Time: 02/07/2022 06:57 Datetime: 02/07/2022 10:09 SpO2 (%): 98 Datetime: 02/07/2022 10:00 UTERINE ACTIVITY Monitor Mode: External Frequency (min): 2-4 Quality: Strong Duration (sec): 50-160 Pattern: Normal: <= 5 Contractions in 10 Minutes Resting Tone (Palpate): Relaxed ASSESSMENT A Monitor Mode: Telemetry FHR Baseline Rate : 150 Variability: Moderate 6-25 bpm Accelerations: None Decelerations: Early; Variable Category: Category II Datetime: 02/07/2022 09:44 Patient Position/Activity: Left Tilt Datetime: 02/07/2022 09:24 STAGE 2 Pushing: Coached on Pushing Pushing Position: Pushing with Contractions Datetime: 02/07/2022 09:15 Comments: hand holding monitor - registering very low on abdomen Datetime: 02/07/2022 09:09 VAGINAL EXAM Dilatation (cm): 10.0 Effacement (%): 100 Station: 1 Exam by: M. [place] RN Datetime: 02/07/2022 09:00 PATIENT CARE Oxygen Method: Room Air Datetime: 02/07/2022 08:53 Temperature (C): 36.9 Datetime: 02/07/2022 08:51 Monitor Interventions for FHR: Ultrasound Adjusted Datetime: 02/07/2022 08:20 Patient Care Comments: peanut ball in place Datetime: 02/07/2022 07:38 MATERNAL ASSESSMENT Level of Consciousness: Alert Headache: Denies Breath Sounds, Left: Clear and Equal Breath Sounds, Right: Clear and Equal Nausea/Vomiting: Denies RUQ Epigastric Pain: Denies Datetime: 02/07/2022 06:57 Membranes Rupture Method: Spontaneous Amniotic Fluid Color: Clear Amniotic Fluid Amount: Moderate Datetime: 02/07/2022 06:30 Monitor Interventions for UA: [place] Adjusted FHR Baseline Changes: No Baseline Change Datetime: 02/07/2022 05:51 Vaginal Bleeding: Normal Show Cervix, Consistency: Moderate Cervix, Position: Anterior Vaginal Exam Comments: BOW palp Datetime: 02/07/2022 05:31 Epidural Procedure Other: Pump Started Datetime: 02/07/2022 05:24 Epidural Procedure: Loading Dose; Completed Datetime: 02/07/2022 05:13 Respirations: 18 Datetime: 02/07/2022 05:10 PROCEDURE TIME OUT Procedure Verify: Correct Patient Identity; Correct Side and Site are Marked; Accurate Procedure Co nsent Form; Agreement on Procedure to be Done; Correct Patient Position; Relevant Images and Results are Properly Labeled and Displayed; Addressed Need to Administer Antibiotics or Fluids for Irrigation ; Safety Precautions Based on Patient History or Medication Use Epidural Positioning: Sitting Datetime: 02/07/2022 05:02 ANESTHESIA Anesthesia Plans: Epidural Anesthesia Comments: M. Aube [place] MANAGER at [facility] Datetime: 02/07/2022 05:00 DTR's/Clonus: DTRs 3+; No Clonus I/O Interventions: Up to BR Datetime: 02/07/2022 04:30 PAIN Pain Scale: 6 Pain Presence: Intermittent Pain Type: Cramping; Pressure Pain Location: Abdomen; Back; Perineum Pain Goal: 7 Pain Relief Measures: Comfort Measures Pain Coping: Breathing Through Contractions Pain Assessment Comments: doesn't like nitrous oxide wants to try amb and birthing ball before call ing for epidural Datetime: 02/07/2022 03:48 MEDICATIONS Analgesics/Sedatives: nitrous oxide initiated with instructions
[2022-02-08] MEDS ORDERED: IBUPROFEN 600 MG TABLET PO SCH (11:00)
== END 2022-02-07 18:30 | disposition home or self-care (01) | DRG 807 ==
LOC: FBP 02:50 → WFO 02:50 → FBP 03:11
PROVIDERS: ADMIT Obstetrics & Gynecology Obstetrics; ATTEND Obstetrics & Gynecology Obstetrics
PROC: 10E0XZZ Delivery of Products of Conception, External Approach (ICD-10-PCS; principal; 2022-02-07)
DX: O98.12 Syphilis complicating childbirth (principal); Z37.0 Single live birth; A53.9 Syphilis, unspecified; Z3A.39 39 weeks gestation of pregnancy
CPT/HCPCS: 80053; 85025; 86780; 86850; 86900; 86901; A9270; J7120; 99215

== ENCOUNTER 2022-04-30 19:05 | Emergency (ER) | payer OTHER ==
[2022-04-30 19:31] VITALS: BP 137/80
--- OUTSIDE RECORDS SUMMARY | 2022-04-30 19:43 | EXTERNAL MEDICAL SUMMARY RPT | Continuity of Care Document ---
:2000 Author Organization [facility] Address [address] [place] [address] Phone Care Team Providers Name Role Phone Jasson Fernandez Unavailable Unavailable Allergies No information. Encounters No information. Functional Status No information. Immunizations No information. Medications No information. Problems date description facility 2022-03-19 00:00 Acquired syphilis [facility] 2022-03-20 09:52 Syphilis, unspecified [facility] 2022-03-20 09:52 Encounter for routine follow -up [facility] 2022-03-20 09:56 Syphilis, unspecified [facility] Procedures No information. Results/Labs test date author facility value unit interpret ation Result panel 1 (unknown) (no date) (unknown) [place] (no value) (units (unk nown) Hospital unknown) Result panel 2 (unknown) (no (unknown) (unknown) (no value) (units (unk nown) date) unknown) (unknown) (no (unknown) (unknown) (+10 lb 2 oz) (units ( unknown) date) 110/70 unknown) (unknown) (no (unknown) (unknown) (+19 lb 7 oz) (units ( unknown) date) 120/70 unknown) (unknown) (no (unknown) (unknown) (+25 lb) 126/60 (units (unknown) date) N unknown) (unknown) (no (unknown) (unknown) (+25 lb) 134/60 (units (unknown) date) unknown) (unknown) (no (unknown) (unknown) (+35 lb) 118/72 (units (unknown) date) N unknown) (unknown) (no (unknown) (unknown) (+36 lb) 116/74 (units (unknown) date) N unknown) (unknown) (no (unknown) (unknown) (+40 lb) 112/72 (units (unknown) date) N unknown) (unknown) (no (unknown) (unknown) (+44 lb) 112/72 (units (unknown) date) N unknown) (unknown) (no (unknown) (unknown) Genetic (units (unkn own) date) Screening/Teratol unknown) ogy Counseling - Includes patient, baby's father, or (unknown) (no (unknown) (unknown) -?-?-?-?-?-?-?-? (units (unknown) date) -?-?-?-? unknown) (unknown) (no (unknown) (unknown) [id number] (units (unkno wn) date) unknown) (unknown) (no (unknown) (unknown) 09/24/21 (units (unkno wn) date) unknown) (unknown) (no (unknown) (unknown) 10/22/21 (units (unkno wn) date) unknown) (unknown) (no (unknown) (unknown) 11/19/21 (units (unkno wn) date) unknown) (unknown) (no (unknown) (unknown) 12/11/21 (units (unkno wn) date) unknown) (unknown) (no (unknown) (unknown) 12/23/21 (units (unkno wn) date) unknown) (unknown) (no (unknown) (unknown) 01/07/22 (units (unkno wn) date) unknown) (unknown) (no (unknown) (unknown) 01/21/22 (units (unkno wn) date) unknown) (unknown) (no (unknown) (unknown) 01/29/22 (units (unkno wn) date) unknown) (unknown) (no (unknown) (unknown) 01/07 shows a (units (u nknown) date) decline to 1:8 unknown) from 1:16 at the time of initial diagnosis. Labor (unknown) (no (unknown) (unknown) 02/04/22 (units (unkno wn) date) unknown) (unknown) (no (unknown) (unknown) 02/04/22] (units (unkn own) date) unknown) (unknown) (no (unknown) (unknown) 02/14/2022 by [place] (units (unknown) date) unknown) (unknown) (no (unknown) (unknown) 122/72 N (units (unkno wn) date) unknown) (unknown) (no (unknown) (unknown) 19w 4d 160 lb 2 (units (unknown) date) oz unknown) (unknown) (no (unknown) (unknown) 23w 4d 169 lb 7 (units (unknown) date) oz unknown) (unknown) (no (unknown) (unknown) 27w 4d 175 lb (units ( unknown) date) unknown) (unknown) (no (unknown) (unknown) 30w 5d 175 lb (units ( unknown) date) unknown) (unknown) (no (unknown) (unknown) 32w 3d 185 lb (units ( unknown) date) unknown) (unknown) (no (unknown) (unknown) 34w 4d 186 lb (units ( unknown) date) unknown) (unknown) (no (unknown) (unknown) 36w 4d 190 lb (units ( unknown) date) unknown) (unknown) (no (unknown) (unknown) 37w 5d 194 lb (units ( unknown) date) unknown) (unknown) (no (unknown) (unknown) 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 First positive test sometime in (unknown) (no (unknown) (unknown) Age/Sex: 21 / F (units (unknown) date) Date of Service: unknown) (unknown) (no (unknown) (unknown) Allergies (units (unkn own) date) unknown) (unknown) (no (unknown) (unknown) [place] (units ( unknown) date) [id number] unknown) (unknown) (no (unknown) (unknown) Aneuploidy (units (unk nown) date) Screening unknown) Offered: Accepted (unknown) (no (unknown) (unknown) Anticipate (units (unknown) date) [facility] unknown) (unknown) (no (unknown) (unknown) Anticipated (units (un known) date) course of unknown) care: discussed (unknown) (no (unknown) (unknown) May, but never (units (unknown) date) sought care for unknown) until last week. (unknown) (no (unknown) (unknown) Assessment and (units (unknown) date) Plan unknown) (unknown) (no (unknown) (unknown) Attending Dr: (units ( unknown) date) Marcos Diaz unknown) (unknown) (no (unknown) (unknown) (units (unkno wn) date) Plan/Preferences unknown) (unknown) (no (unknown) (unknown) Planning (units (unknown) date) unknown) (unknown) (no (unknown) (unknown) Blood (units (unkno wn) date) transfusions?: unknown) yes (Never had but would accept) (unknown) (no (unknown) (unknown) Childbirth (units (unk nown) date) Classes: unknown) discussed (unknown) (no (unknown) (unknown) Current Estimate (units (unknown) date) 02/14/22 unknown) Ultrasound #1 38w 4d (unknown) (no (unknown) (unknown) Current (units (unkno wn) date) History unknown) (unknown) (no (unknown) (unknown) : 2000 (units (unknown) date) Acct:[id number] unknown) (unknown) (no (unknown) (unknown) Date (units (unkno wn) date) unknown) (unknown) (no (unknown) (unknown) Denies Congenital (units (unknown) date) Heart Defect, unknown) Denies Down Syndrome, Denies Muscular Dystrophy, (unknown) (no (unknown) (unknown) Denies Maternal (units (unknown) date) Metabolic unknown) Disorder (EG,TYPE 1 Diabetes, PKU), Denies Patient or (unknown) (no (unknown) (unknown) Denies Neural (units ( unknown) date) Tube Defect unknown) (Meningomyelocele , Spina Bifida, or Anencephaly), (unknown) (no (unknown) (unknown) Denies Sickle (units ( unknown) date) Cell Disease or unknown) Trait (), Denies Hemophilia or other blood (unknown) (no (unknown) (unknown) Denies Woody-Sachs (units (unknown) date) (Ashkenazi unknown) Confucianism, Cajun, Scottish Greenlandic), Denies Jose (unknown) (no (unknown) (unknown) Denies other (units (u nknown) date) unknown) (unknown) (no (unknown) (unknown) Denies over the (units (unknown) date) counter unknown) medications, Denies alcohol, Denies illicit drugs and (unknown) (no (unknown) (unknown) Depression: (units (un known) date) discussed unknown) (unknown) (no (unknown) (unknown) Dept at (units (unkno wn) date) . 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), (unknown) (no (unknown) (unknown) Documented By: (units (unknown) date) Marcos Diaz E unknown) 02/04/22 0859 (unknown) (no (unknown) (unknown) Draft (units (unkno wn) date) unknown) (unknown) (no (unknown) (unknown) E 1 wk (units (unkno wn) date) unknown) (unknown) (no (unknown) (unknown) LOGAN Calculator (units (unknown) date) unknown) (unknown) (no (unknown) (unknown) EGA Weight BP (units ( unknown) date) UGlucose unknown) (unknown) (no (unknown) (unknown) Estimated (units (unkn own) date) Delivery Date unknown) Method Current (unknown) (no (unknown) (unknown) Expected (units (unkno wn) date) Delivery unknown) Route/Plan (unknown) (no (unknown) (unknown) Family History (units (unknown) date) (Reviewed unknown) 09/24/21 @ 14:57 by Carlos Tejada RN) (unknown) (no (unknown) (unknown) Father of Baby: (units (unknown) date) same unknown) (unknown) (no (unknown) (unknown) [facility]) (unknown) (no (unknown) (unknown) First Trimester (units (unknown) date) Education unknown) Checklist (unknown) (no (unknown) (unknown) (units (unkno wn) date) unknown) (unknown) (no (unknown) (unknown) Genetic (units (unkno wn) date) Screening + unknown) Counseling (unknown) (no (unknown) (unknown) Genetic (units (unkno wn) date) Screening unknown) (unknown) (no (unknown) (unknown) Grandmother (units (un known) date) Bladder cancer unknown) (unknown) (no (unknown) (unknown) Grandmother (units (un known) date) Diabetes mellitus unknown) (unknown) (no (unknown) (unknown) 1 (units (unkn own) date) Multiple births unknown) (unknown) (no (unknown) (unknown) HIV risk (units (unkno wn) date) evaluation: low unknown) risk (unknown) (no (unknown) (unknown) [facility] Center (units ( unknown) date) Education unknown) (unknown) (no (unknown) (unknown) Health center (units ( unknown) date) information: unknown) nature of practice discussed, personnel (unknown) (no (unknown) (unknown) Hepatitis C risk (units (unknown) date) evaluation: low unknown) risk (unknown) (no (unknown) (unknown) Her baby remains (units (unknown) date) active but she unknown) denies contractions, bleeding, leakage of fluid (unknown) (no (unknown) (unknown) History of (units (unk nown) date) Hepatitis B: No unknown) (unknown) (no (unknown) (unknown) History of (units (unk nown) date) Hepatitis C: No unknown) (unknown) (no (unknown) (unknown) Hospital: (units (u nknown) date) unknown) (unknown) (no (unknown) (unknown) [facility] (units (u nknown) date) Chorea, Denies unknown) Other inherited genetic or chromosomal disorder, (unknown) (no (unknown) (unknown) Hx # (units (u nknown) date) Pregnancies unknown) Elective abortions (unknown) (no (unknown) (unknown) Hx # Term (units (unkn own) date) Pregnancies unknown) Ectopic pregnancies (unknown) (no (unknown) (unknown) Hx of frequent (units (unknown) date) UTI's (no hx of unknown) pyelo); watch closely for UTI sx (unknown) (no (unknown) (unknown) will be (units (unknown) date) adopted?: no unknown) (unknown) (no (unknown) (unknown) Infection (units (unkn own) date) History unknown) (unknown) (no (unknown) (unknown) Infectious (units (unk nown) date) Disease Education unknown) (unknown) (no (unknown) (unknown) Infectious (units (unk nown) date) disease exposure: unknown) chicken pox immunity discussed, hepatitis risk (unknown) (no (unknown) (unknown) Initial US LOGAN (units (unknown) date) 10 days later unknown) than LOGAN by LMP (Irregular, uncertain date); LOGAN (unknown) (no (unknown) (unknown) Initial Weight: (units (unknown) date) 150 lb unknown) (unknown) (no (unknown) (unknown) Initials (units (unkno wn) date) unknown) (unknown) (no (unknown) (unknown) Intake Clinical (units (unknown) date) Staff unknown) (unknown) (no (unknown) (unknown) Intake Note: (units (u nknown) date) unknown) (unknown) (no (unknown) (unknown) Intake performed (units (unknown) date) by: Brandi Monreal unknown) (unknown) (no (unknown) (unknown) Intake (units (unkno wn) date) unknown) (unknown) (no (unknown) (unknown) Irregular menses (units (unknown) date) unknown) (unknown) (no (unknown) (unknown) LM (units (unkno wn) date) unknown) (unknown) (no (unknown) (unknown) Late to care, (units ( unknown) date) otherwise healthy unknown) (unknown) (no (unknown) (unknown) Left sided LBP, (units (unknown) date) non-radiating; unknown) referral to Dr. Bowers for OMT (unknown) (no (unknown) (unknown) Live with (units (unkn own) date) someone with TB unknown) or exposed to TB: No (unknown) (no (unknown) (unknown) Loc: [facility] (units (unkno wn) date) unknown) (unknown) (no (unknown) (unknown) Marital status: (units (unknown) date) unmarried,living unknown) together (unknown) (no (unknown) (unknown) Medical History (units (unknown) date) (Reviewed unknown) 09/24/21 @ 14:57 by Carlos Tejada RN) (unknown) (no (unknown) (unknown) Medications (units (un known) date) unknown) (unknown) (no (unknown) (unknown) N Yes no 148 27 (units (unknown) date) N/A absent 3 wks unknown) (unknown) (no (unknown) (unknown) N Yes no 149 32 (units (unknown) date) Vertex absent Flu unknown) shot giv (unknown) (no (unknown) (unknown) N Yes no 165 30 (units (unknown) date) Vertex absent 2wk unknown) (unknown) (no (unknown) (unknown) NF (units (unkno wn) date) unknown) (unknown) (no (unknown) (unknown) Nexplanon removed (units (unknown) date) 04/2021 and unknown) conceived on OC's; stopped with first missed period (unknown) (no (unknown) (unknown) No Known (units (unkno wn) date) Allergies Allergy unknown) (Verified 02/04/22 09:00) (unknown) (no (unknown) (unknown) Notes (units (unkno wn) date) unknown) (unknown) (no (unknown) (unknown) Number of Living (units (unknown) date) Children unknown) (unknown) (no (unknown) (unknown) Number of (units (unkn own) date) fetuses:: Single unknown) (unknown) (no (unknown) (unknown) Nutrition and (units ( unknown) date) weight gain unknown) counseling: special diet: discussed (unknown) (no (unknown) (unknown) OB Office Visit (units (unknown) date) unknown) (unknown) (no (unknown) (unknown) OB Visit Log (units (u nknown) date) unknown) (unknown) (no (unknown) (unknown) On control (units (unknown) date) at conception?: unknown) Yes (stopped once she learned she was ) (unknown) (no (unknown) (unknown) Other Estimates (units (unknown) date) 02/04/22 LMP unknown) (Uncertain) 40w 0d (unknown) (no (unknown) (unknown) PFSH (units (unkno wn) date) unknown) (unknown) (no (unknown) (unknown) Para Spontaneous (units (unknown) date) abortions unknown) (unknown) (no (unknown) (unknown) Partner history (units (unknown) date) of STD: denies hx unknown) (unknown) (no (unknown) (unknown) Partner history (units (unknown) date) of genital unknown) herpes: No (unknown) (no (unknown) (unknown) Partner: Vel (units (unknown) date) [place] unknown) (unknown) (no (unknown) (unknown) Patient comes in (units (unknown) date) for routine OB unknown) visit. No headaches, scotomata, epigastric (unknown) (no (unknown) (unknown) Patient placed (units (unknown) date) at bed rest and unknown) no provided for her command. She denies (unknown) (no (unknown) (unknown) Patient treated (units (unknown) date) with 3 doses of unknown) IM penicillin for positive RPR (unknown) (no (unknown) (unknown) Patient's age 35 (units (unknown) date) years or older as unknown) of estimated date of delivery: No (unknown) (no (unknown) (unknown) Patient: (units (unkno wn) date) Mayfield,Franklyn unknown) MR#: [id number] (unknown) (no (unknown) (unknown) Street Department Dispatcher: (units ( unknown) date) TBD unknown) (unknown) (no (unknown) (unknown) Personal history (units (unknown) date) of STD: denies hx unknown) (unknown) (no (unknown) (unknown) Personal history (units (unknown) date) of genital unknown) herpes: No (unknown) (no (unknown) (unknown) (units (unkn own) date) History unknown) (unknown) (no (unknown) (unknown) type:: (units (unknown) date) First unknown) (unknown) (no (unknown) (unknown) (units (unkno wn) date) Education unknown) (unknown) (no (unknown) (unknown) Initial (units (unknown) date) Assessment unknown) (unknown) (no (unknown) (unknown) (units (unkno wn) date) Specific unknown) Issues/Plans (unknown) (no (unknown) (unknown) (units (unkno wn) date) Testing: unknown) discussed (unknown) (no (unknown) (unknown) Visit (units (unknown) date) unknown) (unknown) (no (unknown) (unknown) (units (unkno wn) date) education packet: unknown) symptoms, Vitamins and iron, Diet and (unknown) (no (unknown) (unknown) Primary Care (units (u nknown) date) Provider: LAURA Langston unknown) [place] (unknown) (no (unknown) (unknown) Primary Ob (units (unk nown) date) Provider: unknown) Marcos Diaz (unknown) (no (unknown) (unknown) Prior (units (unkno wn) date) GBS-Infected unknown) child: No (unknown) (no (unknown) (unknown) Providers (units (unkn own) date) unknown) (unknown) (no (unknown) (unknown) Pt here for OB (units (unknown) date) Check unknown) (unknown) (no (unknown) (unknown) RPR ordered and (units (unknown) date) pt will have unknown) drawn today. F/u 2 wks or as needed. 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 (unknown) (no (unknown) (unknown) She did not have (units (unknown) date) her RPR titer unknown) performed after her previous visit as ordered. (unknown) (no (unknown) (unknown) She does have a (units (unknown) date) lot of pelvic unknown) discomfort and advised to try to get a (unknown) (no (unknown) (unknown) She is doing (units (u nknown) date) well and she unknown) continues to regain her energy levels. She denies (unknown) (no (unknown) (unknown) She will however (units (unknown) date) have it performed unknown) today. Or she is having some left round (unknown) (no (unknown) (unknown) Signed By: (units (unk nown) date) unknown) (unknown) (no (unknown) (unknown) Smoking Status: (units (unknown) date) Never smoker unknown) (unknown) (no (unknown) (unknown) Social History (units (unknown) date) unknown) (unknown) (no (unknown) (unknown) Support (units (unkno wn) date) Person(s):: unknown) Vel (unknown) (no (unknown) (unknown) Surgical History (units (unknown) date) (Reviewed unknown) 09/24/21 @ 14:57 by Carlos Tejada RN) (unknown) (no (unknown) (unknown) Surrogate (units (unkn own) date) ?: no unknown) (unknown) (no (unknown) (unknown) Symptoms since (units (unknown) date) LMP: Reports unknown) amenorrhea, nausea, fatigue, breast tenderness, (unknown) (no (unknown) (unknown) TR Yes no 142 37 (units (unknown) date) Vertex absent GBS unknown) NEGATIV (unknown) (no (unknown) (unknown) TR Yes no 144 34 (units (unknown) date) Vertex absent 2 unknown) wks (unknown) (no (unknown) (unknown) TR Yes no 146 36 (units (unknown) date) Vertex absent 1 unknown) wk (unknown) (no (unknown) (unknown) Franklyn and (units (unk nown) date) Vel return unknown) today for her AVERY visit now 37+ 5 weeks (unknown) (no (unknown) (unknown) Franklyn and (units (unk nown) date) Vel returns unknown) today for her AVERY visit now at 36+ 4 weeks (unknown) (no (unknown) (unknown) Franklyn presents (units (unknown) date) today for her unknown) initial OB visit now at 19+ 4 weeks (unknown) (no (unknown) (unknown) Franklyn presents (units (unknown) date) today for routine unknown) OB visit at 32w3d. She reports good (unknown) (no (unknown) (unknown) Franklyn returns (units (unknown) date) today for her AVERY unknown) visit now at 23+ 4 weeks gestational age. (unknown) (no (unknown) (unknown) Franklyn returns (units (unknown) date) today for her AVERY unknown) visit now at 27+ 4 weeks gestational age. (unknown) (no (unknown) (unknown) Franklyn returns (units (unknown) date) today for her AVERY unknown) visit now at 34+ 4 weeks gestational age. (unknown) (no (unknown) (unknown) Teratogen (units (unkn own) date) Exposures since unknown) LMP/Conception: Denies prescription medications, (unknown) (no (unknown) (unknown) Testing (units (unkno wn) date) Education unknown) (unknown) (no (unknown) (unknown) Testing (units (unkno wn) date) education unknown) completed: group B strep and Spina bifida testing (unknown) (no (unknown) (unknown) This note may (units ( unknown) date) have been all or unknown) partially generated using voice recognition (unknown) (no (unknown) (unknown) Tobacco + (units (unkn own) date) Substance Use unknown) (unknown) (no (unknown) (unknown) Tobacco Status (units (unknown) date) unknown) (unknown) (no (unknown) (unknown) Trimester:: 3rd (units (unknown) date) Trimester unknown) (28wks-Del) (unknown) (no (unknown) (unknown) Type(s) of (units (unk nown) date) exercise: yoga unknown) (unknown) (no (unknown) (unknown) UProtein Movement (units (unknown) date) PreLabor FHR Fndl unknown) Ht Pres Edema Cerv Exam US/Comment Next Appt (unknown) (no (unknown) (unknown) VDRL titer (units (unk nown) date) remains pending. unknown) Repeat platelet count 2 drawn today. GBS obtained (unknown) (no (unknown) (unknown) Varicella/chicke (units (unknown) date) n pox status: unknown) unknown (unknown) (no (unknown) (unknown) Visit Date: (units (un known) date) 09/24/21 Last unknown) Updated by: Marcos Diaz MD (unknown) (no (unknown) (unknown) Visit Date: (units (un known) date) 10/22/21 Last unknown) Updated by: Marcos Diaz MD (unknown) (no (unknown) (unknown) Visit Date: (units (un known) date) 11/19/21 Last unknown) Updated by: Marcos Diaz MD (unknown) (no (unknown) (unknown) Visit Date: (units (un known) date) 12/11/21 Last unknown) Updated by: Divina Perez MD (unknown) (no (unknown) (unknown) Visit Date: (units (un known) date) 12/23/21 Last unknown) Updated by: Cindy Flores P.A-C (unknown) (no (unknown) (unknown) Visit Date: (units (un known) date) 01/07/22 Last unknown) Updated by: Marcos Diaz MD (unknown) (no (unknown) (unknown) Visit Date: (units (un known) date) 01/21/22 Last unknown) Updated by: Marcos Diaz MD (unknown) (no (unknown) (unknown) Visit Date: (units (un known) date) 01/29/22 Last unknown) Updated by: Marcos Diaz MD (unknown) (no (unknown) (unknown) Visit Reasons: (units (unknown) date) OB unknown) (unknown) (no (unknown) (unknown) WG (units (unkno wn) date) unknown) (unknown) (no (unknown) (unknown) Weeks (units (unkno wn) date) gestation:: 38 unknown) (unknown) (no (unknown) (unknown) [place] teeth (units (u nknown) date) extracted unknown) (unknown) (no (unknown) (unknown) Yes no 144 19 (units ( unknown) date) N/A absent 4 wks unknown) (unknown) (no (unknown) (unknown) Yes no 156 23 (units ( unknown) date) N/A absent 4 wks unknown) (unknown) (no (unknown) (unknown) Zika virus (units (unk nown) date) exposure: No unknown) (unknown) (no (unknown) (unknown) alcohol intake: (units (unknown) date) former unknown) (occasional, only before ) (unknown) (no (unknown) (unknown) anatomic survey. (units (unknown) date) GBS culture at unknown) next visit discussed. PTL precautions reviewed (unknown) (no (unknown) (unknown) anatomy scan (units (u nknown) date) following her unknown) next visit in 4 weeks. (unknown) (no (unknown) (unknown) and follow-up (units ( unknown) date) will be in 2 unknown) weeks or as needed. (unknown) (no (unknown) (unknown) and submitted (units ( unknown) date) today. Labor unknown) precautions reviewed and follow-up will be in 1 week (unknown) (no (unknown) (unknown) and vitamin-C (units ( unknown) date) daily. 1 hour GDM unknown) screen and H+H also ordered. PTL precautions (unknown) (no (unknown) (unknown) anyone in either (units (unknown) date) family with: unknown) (unknown) (no (unknown) (unknown) baby's father (units ( unknown) date) had a child with unknown) defects not listed above and Denies Other (unknown) (no (unknown) (unknown) by bedside (units (unk nown) date) ultrasound. She unknown) denies contractions, bleeding, leakage of fluid per (unknown) (no (unknown) (unknown) caffeine: Yes (1 (units (unknown) date) cup/day) unknown) (unknown) (no (unknown) (unknown) carbon monox (units (u nknown) date) detector in home: unknown) Yes (unknown) (no (unknown) (unknown) continue however (units (unknown) date) and again unknown) recommended that she be seen for OMT by Dr. Bowers; (unknown) (no (unknown) (unknown) contractions and (units (unknown) date) occasional round unknown) ligament pains. Her low back pain does (unknown) (no (unknown) (unknown) contractions, (units ( unknown) date) bleeding, leakage unknown) of fluid per vagina, or change in discharge but (unknown) (no (unknown) (unknown) contractions, (units ( unknown) date) bleeding, leakage unknown) of fluid per vagina, or change in discharge. (unknown) (no (unknown) (unknown) current (units (unkno wn) date) occupational unknown) exposures/hazards : No (unknown) (no (unknown) (unknown) daily servings (units (unknown) date) fruits/ve-4 unknown) (unknown) (no (unknown) (unknown) described, visit (units (unknown) date) schedule unknown) reviewed, ultrasounds policy reviewed, coverage 24 (unknown) (no (unknown) (unknown) discomfort, (units (un known) date) advised belly unknown) band. No other concerns. Flu shot given today. F/u (unknown) (no (unknown) (unknown) discussed, (units (unk nown) date) tuberculosis unknown) exposure discussed, CMV discussed, Toxoplasmosis (unknown) (no (unknown) (unknown) disorders, (units (unk nown) date) Denies Cystic unknown) Fibrosis, Denies Mental Retardation/Autis m, Denies (unknown) (no (unknown) (unknown) do you feel safe (units (unknown) date) at home: Yes unknown) (unknown) (no (unknown) (unknown) during the past (units (unknown) date) year weight has: unknown) remained stable (unknown) (no (unknown) (unknown) education level: (units (unknown) date) college unknown) (Associate's degree) (unknown) (no (unknown) (unknown) en 2wk (units (unkno wn) date) unknown) (unknown) (no (unknown) (unknown) movement (units (unknown) date) and denies VB, unknown) LOF, cramping and contractions. Mild pelvic bone (unknown) (no (unknown) (unknown) movement, (units (unknown) date) tone, breathing. unknown) Vertex 50th percentile, LYNDSAY 9. Routine (unknown) (no (unknown) (unknown) fire (units (unkno wn) date) extinguisher in unknown) home: Yes (unknown) (no (unknown) (unknown) firearms in (units (un known) date) home: No unknown) (unknown) (no (unknown) (unknown) frequency: 1-2 (units (unknown) date) times per week unknown) (unknown) (no (unknown) (unknown) gestational age (units (unknown) date) by corrected unknown) ultrasound based LOGAN. Her nausea and vomiting (unknown) (no (unknown) (unknown) gestational age. (units (unknown) date) GBS collected at unknown) her last visit is negative. Vertex confirmed (unknown) (no (unknown) (unknown) gestational age. (units (unknown) date) She is doing well unknown) and is having no ongoing issues. She denies (unknown) (no (unknown) (unknown) have occurred. (units (unknown) date) If there are any unknown) questions, please contact the Medical Records (unknown) (no (unknown) (unknown) having (units (unkno wn) date) significant unknown) fatigue issues. She is been having some non radicular left (unknown) (no (unknown) (unknown) her baby does (units ( unknown) date) remain active. unknown) Follow-up OB ultrasound ordered to complete (unknown) (no (unknown) (unknown) her baby is (units (un known) date) increasingly unknown) active. Size equals dates for adjusted LOGAN and follow (unknown) (no (unknown) (unknown) hours a day and (units (unknown) date) participation of unknown) father in care and office visits (unknown) (no (unknown) (unknown) household (units (unkn own) date) members: unknown) significant other (unknown) (no (unknown) (unknown) housing: (units (unkno wn) date) apartment unknown) (unknown) (no (unknown) (unknown) jw (units (unkno wn) date) unknown) (unknown) (no (unknown) (unknown) ligament pain (units ( unknown) date) radiating down unknown) into her left groin with movement and activities (unknown) (no (unknown) (unknown) lives (units (unkno wn) date) independently: unknown) Yes (unknown) (no (unknown) (unknown) marital status: (units (unknown) date) unmarried,living unknown) together (unknown) (no (unknown) (unknown) may occur. 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 Please (unknown) (no (unknown) (unknown) or as needed. (units ( unknown) date) unknown) (unknown) (no (unknown) (unknown) pain. Good (units (unknown) date) movement. No unknown) vaginal bleeding or discharge. No contractions. (unknown) (no (unknown) (unknown) particularly (units (u nknown) date) when she is unknown) standing or sitting for prolonged periods of time. (unknown) (no (unknown) (unknown) per vagina, or (units (unknown) date) change in unknown) discharge. She is having occasional [employer] [place] (unknown) (no (unknown) (unknown) pets and (units (unkno wn) date) animals: No unknown) (unknown) (no (unknown) (unknown) precautions (units (un known) date) reviewed and unknown) follow-up will be in 1 week or as needed. (unknown) (no (unknown) (unknown) precautions (units (un known) date) reviewed with the unknown) patient. (unknown) (no (unknown) (unknown) precautions, (units (u nknown) date) Listeriosis unknown) prevention and Rubella Immunization (unknown) (no (unknown) (unknown) prenat.vits,momo, (units (unknown) date) [id number] 1 unknown) tab PO DAILY 09/12/21 [History Confirmed (unknown) (no (unknown) (unknown) care (units ( unknown) date) reviewed at unknown) length. Will plan to order follow-up growth and (unknown) (no (unknown) (unknown) labs (units ( unknown) date) and quad screen unknown) drawn today. Course and conduct of routine (unknown) (no (unknown) (unknown) read the note (units ( unknown) date) carefully and unknown) recognize, using context, where these substitutions (unknown) (no (unknown) (unknown) referral placed. (units (unknown) date) PTL precautions unknown) reviewed and follow-up will be in 3 weeks. (unknown) (no (unknown) (unknown) reviewed and (units (u nknown) date) follow-up will be unknown) in 4 weeks or as needed. (unknown) (no (unknown) (unknown) seatbelt use: (units ( unknown) date) always unknown) (unknown) (no (unknown) (unknown) second hand (units (un known) date) exposure: No unknown) (unknown) (no (unknown) (unknown) sided lower back (units (unknown) date) pain and will ask unknown) Dr. Bowers to evaluate for OMT. Initial (unknown) (no (unknown) (unknown) software. (units (unkn own) date) Although every unknown) effort is made to edit content, planetarium technician errors (unknown) (no (unknown) (unknown) special phyllis (units ( unknown) date) needs: No unknown) (unknown) (no (unknown) (unknown) substance use (units ( unknown) date) type: does not unknown) use (unknown) (no (unknown) (unknown) support belt. (units ( unknown) date) Brief ultrasound unknown) was performed for patient reassurance. Good (unknown) (no (unknown) (unknown) travel history: (units (unknown) date) recent ([place] unknown) (ina)) (unknown) (no (unknown) (unknown) up ultrasound (units ( unknown) date) ordered to unknown) complete anatomic survey. She continues to take iron (unknown) (no (unknown) (unknown) urinary (units (unkno wn) date) frequency, unknown) irritability, bloating and other (constipated) (unknown) (no (unknown) (unknown) vagina, or (units (unk nown) date) change in unknown) discharge but her baby remains active. VDRL titer from (unknown) (no (unknown) (unknown) water heater (units (u nknown) date) temp set < 120 unknown) deg: No (will check and adjust) (unknown) (no (unknown) (unknown) weight gain, (units (u nknown) date) Fish and mercury unknown) intake, Caffeine use, Exercise and activity, (unknown) (no (unknown) (unknown) well-balanced (units ( unknown) date) diet: daily or unknown) most days (unknown) (no (unknown) (unknown) which she (units (unkn own) date) experienced unknown) earlier in the has resolved. She is however (unknown) (no (unknown) (unknown) work/environment (units (unknown) date) al/hazards, unknown) Sexual activity, X-ray exposure, Medication use, (unknown) (no (unknown) (unknown) working smoke (units ( unknown) date) detector in home: unknown) Yes Result panel 3 (unknown) (no (unknown) (unknown) (no value) (units (unk nown) date) unknown) (unknown) (no (unknown) (unknown) (+10 lb 2 oz) (units ( unknown) date) 110/70 unknown) (unknown) (no (unknown) (unknown) (+19 lb 7 oz) (units ( unknown) date) 120/70 unknown) (unknown) (no (unknown) (unknown) (+25 lb) 126/60 N (units (unknown) date) unknown) (unknown) (no (unknown) (unknown) (+25 lb) 134/60 (units (unknown) date) unknown) (unknown) (no (unknown) (unknown) (+35 lb) 118/72 N (units (unknown) date) unknown) (unknown) (no (unknown) (unknown) (+36 lb) 116/74 N (units (unknown) date) unknown) (unknown) (no (unknown) (unknown) (+40 lb) 112/72 N (units (unknown) date) unknown) (unknown) (no (unknown) (unknown) (+44 lb) 112/72 N (units (unknown) date) unknown) (unknown) (no (unknown) (unknown) (+45 lb) 112/66 (units (unknown) date) unknown) (unknown) (no (unknown) (unknown) (1) (units (unkno wn) date) Thrombocytopenia unknown) affecting , antepartum: (unknown) (no (unknown) (unknown) (2) Syphilis (units (u nknown) date) affecting unknown) , antepartum: (unknown) (no (unknown) (unknown) (3) Anemia in (units ( unknown) date) preg-unspec: unknown) (unknown) (no (unknown) (unknown) (4) : (units (unknown) date) unknown) (unknown) (no (unknown) (unknown) Genetic (units (unkn own) date) Screening/Teratolog unknown) y Counseling - Includes patient, baby's father, or (unknown) (no (unknown) (unknown) -?-?-?-?-?-?-?-?-? (units (unknown) date) -?-?-? unknown) (unknown) (no (unknown) (unknown) [id number] (units (unkno wn) date) unknown) (unknown) (no (unknown) (unknown) 09/24/21 (units (unkno wn) date) unknown) (unknown) (no (unknown) (unknown) 10/22/21 (units (unkno wn) date) unknown) (unknown) (no (unknown) (unknown) 11/19/21 (units (unkno wn) date) unknown) (unknown) (no (unknown) (unknown) 09:03 (units (unkno wn) date) unknown) (unknown) (no (unknown) (unknown) 12/11/21 (units (unkno wn) date) unknown) (unknown) (no (unknown) (unknown) 12/23/21 (units (unkno wn) date) unknown) (unknown) (no (unknown) (unknown) 01/07/22 (units (unkno wn) date) unknown) (unknown) (no (unknown) (unknown) 01/21/22 (units (unkno wn) date) unknown) (unknown) (no (unknown) (unknown) 01/29/22 (units (unkno wn) date) unknown) (unknown) (no (unknown) (unknown) 01/07 shows a (units (u nknown) date) decline to 1:8 from unknown) 1:16 at the time of initial diagnosis. Labor (unknown) (no (unknown) (unknown) 02/04/22 0930 (units ( unknown) date) unknown) (unknown) (no (unknown) (unknown) 02/04/22 (units (unkno wn) date) unknown) (unknown) (no (unknown) (unknown) 02/04/22] (units (unkn own) date) unknown) (unknown) (no (unknown) (unknown) 02/14/2022 by [place] (units (unknown) date) unknown) (unknown) (no (unknown) (unknown) 122/72 N (units (unkno wn) date) unknown) (unknown) (no (unknown) (unknown) 19w 4d 160 lb 2 oz (units (unknown) date) unknown) (unknown) (no (unknown) (unknown) 23w 4d 169 lb 7 oz (units (unknown) date) unknown) (unknown) (no (unknown) (unknown) 27w 4d 175 lb (units ( unknown) date) unknown) (unknown) (no (unknown) (unknown) 30w 5d 175 lb (units ( unknown) date) unknown) (unknown) (no (unknown) (unknown) 32w 3d 185 lb (units ( unknown) date) unknown) (unknown) (no (unknown) (unknown) 34w 4d 186 lb (units ( unknown) date) unknown) (unknown) (no (unknown) (unknown) 36w 4d 190 lb (units ( unknown) date) unknown) (unknown) (no (unknown) (unknown) 37w 5d 194 lb (units ( unknown) date) unknown) (unknown) (no (unknown) (unknown) 38w 4d 195 lb (units ( unknown) date) unknown) (unknown) (no (unknown) (unknown) 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 First positive test sometime in (unknown) (no (unknown) (unknown) Age/Sex: 21 / F (units (unknown) date) Date of Service: unknown) (unknown) (no (unknown) (unknown) Allergies (units (unkn own) date) unknown) (unknown) (no (unknown) (unknown) [place], [place] (units ( unknown) date) [id number] unknown) (unknown) (no (unknown) (unknown) Aneuploidy (units (unk nown) date) Screening Offered: unknown) Accepted (unknown) (no (unknown) (unknown) Anticipate (units (unknown) date) [facility] unknown) (unknown) (no (unknown) (unknown) Anticipated course (units (unknown) date) of care: unknown) discussed (unknown) (no (unknown) (unknown) May, but never (units (unknown) date) sought care for unknown) until last week. (unknown) (no (unknown) (unknown) Assessment and (units (unknown) date) Plan unknown) (unknown) (no (unknown) (unknown) Attending Dr: (units ( unknown) date) Marcos Diaz MD unknown) (unknown) (no (unknown) (unknown) BMI 29.6 (units (unkno wn) date) unknown) (unknown) (no (unknown) (unknown) BP 112/66 (units (unkn own) date) unknown) (unknown) (no (unknown) (unknown) (units (unkno wn) date) Plan/Preferences unknown) (unknown) (no (unknown) (unknown) Planning (units (unknown) date) unknown) (unknown) (no (unknown) (unknown) Blood Pressure (units (unknown) date) Location Lt unknown) brachial (unknown) (no (unknown) (unknown) Blood (units (unkno wn) date) transfusions?: yes unknown) (Never had but would accept) (unknown) (no (unknown) (unknown) Childbirth (units (unk nown) date) Classes: discussed unknown) (unknown) (no (unknown) (unknown) Current Estimate (units (unknown) date) 02/14/22 Ultrasound unknown) #1 38w 4d (unknown) (no (unknown) (unknown) Current (units (unknown) date) History unknown) (unknown) (no (unknown) (unknown) : 2000 (units (unknown) date) Acct:[id number] unknown) (unknown) (no (unknown) (unknown) Date (units (unkno wn) date) unknown) (unknown) (no (unknown) (unknown) Denies Congenital (units (unknown) date) Heart Defect, unknown) Denies Down Syndrome, Denies Muscular Dystrophy, (unknown) (no (unknown) (unknown) Denies Maternal (units (unknown) date) Metabolic Disorder unknown) (EG,TYPE 1 Diabetes, PKU), Denies Patient or (unknown) (no (unknown) (unknown) Denies Neural Tube (units (unknown) date) Defect unknown) (Meningomyelocele, Spina Bifida, or Anencephaly), (unknown) (no (unknown) (unknown) Denies Sickle Cell (units (unknown) date) Disease or Trait unknown) (), Denies Hemophilia or other blood (unknown) (no (unknown) (unknown) Denies Woody-Sachs (units (unknown) date) (Ashkenazi Confucianism, unknown) [place]un, Scottish Green[place]ic), Denies Jose (unknown) (no (unknown) (unknown) Denies other (units (u nknown) date) unknown) (unknown) (no (unknown) (unknown) Denies over the (units (unknown) date) counter unknown) medications, Denies alcohol, Denies illicit drugs and (unknown) (no (unknown) (unknown) Depression: (units (un known) date) discussed unknown) (unknown) (no (unknown) (unknown) Dept at (units (unkno wn) date) . 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), (unknown) (no (unknown) (unknown) Documented By: (units (unknown) date) Marcos Diaz MD unknown) 02/04/22 0859 (unknown) (no (unknown) (unknown) E 1 wk (units (unkno wn) date) unknown) (unknown) (no (unknown) (unknown) LOGAN Calculator (units (unknown) date) unknown) (unknown) (no (unknown) (unknown) EGA Weight BP (units ( unknown) date) UGlucose unknown) (unknown) (no (unknown) (unknown) Estimated Delivery (units (unknown) date) Date Method Current unknown) (unknown) (no (unknown) (unknown) Expected Delivery (units (unknown) date) Route/Plan unknown) (unknown) (no (unknown) (unknown) Family History (units (unknown) date) (Reviewed 09/24/21 unknown) @ 14:57 by Carlos Tejada RN) (unknown) (no (unknown) (unknown) Father of Baby: (units (unknown) date) same unknown) (unknown) (no (unknown) (unknown) [facility]) (unknown) (no (unknown) (unknown) First Trimester (units (unknown) date) Education Checklist unknown) (unknown) (no (unknown) (unknown) (units (unkno wn) date) unknown) (unknown) (no (unknown) (unknown) Genetic Screening (units (unknown) date) + Counseling unknown) (unknown) (no (unknown) (unknown) Genetic Screening (units (unknown) date) unknown) (unknown) (no (unknown) (unknown) Grandmother (units (un known) date) Bladder cancer unknown) (unknown) (no (unknown) (unknown) Grandmother (units (un known) date) Diabetes mellitus unknown) (unknown) (no (unknown) (unknown) 1 Multiple (units (unknown) date) births unknown) (unknown) (no (unknown) (unknown) HIV risk (units (unkno wn) date) evaluation: low unknown) risk (unknown) (no (unknown) (unknown) Health Center (units ( unknown) date) Education unknown) (unknown) (no (unknown) (unknown) Health center (units ( unknown) date) information: nature unknown) of practice discussed, personnel (unknown) (no (unknown) (unknown) Height 5 ft 8 in (units (unknown) date) unknown) (unknown) (no (unknown) (unknown) Hepatitis C risk (units (unknown) date) evaluation: low unknown) risk (unknown) (no (unknown) (unknown) Her baby remains (units (unknown) date) active but she unknown) denies contractions, bleeding, leakage of fluid (unknown) (no (unknown) (unknown) History of (units (unk nown) date) Hepatitis B: No unknown) (unknown) (no (unknown) (unknown) History of (units (unk nown) date) Hepatitis C: No unknown) (unknown) (no (unknown) (unknown) Hospital[facility] (units (u nknown) date) unknown) (unknown) (no (unknown) (unknown) [facility] (units (u nknown) date) Chorea, Denies unknown) Other inherited genetic or chromosomal disorder, (unknown) (no (unknown) (unknown) Hx # (units (u nknown) date) Pregnancies unknown) Elective abortions (unknown) (no (unknown) (unknown) Hx # Term (units (unkn own) date) Pregnancies Ectopic unknown) pregnancies (unknown) (no (unknown) (unknown) Hx of frequent (units (unknown) date) UTI's (no hx of unknown) pyelo); watch closely for UTI sx (unknown) (no (unknown) (unknown) will be (units (unknown) date) adopted?: no unknown) (unknown) (no (unknown) (unknown) Infection History (units (unknown) date) unknown) (unknown) (no (unknown) (unknown) Infectious Disease (units (unknown) date) Education unknown) (unknown) (no (unknown) (unknown) Infectious disease (units (unknown) date) exposure: chicken unknown) pox immunity discussed, hepatitis risk (unknown) (no (unknown) (unknown) Initial [place] LOGAN 10 (units (unknown) date) days later than LOGAN unknown) by LMP (Irregular, uncertain date); LOGAN (unknown) (no (unknown) (unknown) Initial Weight: (units (unknown) date) 150 lb unknown) (unknown) (no (unknown) (unknown) Initials (units (unkno wn) date) unknown) (unknown) (no (unknown) (unknown) Intake Clinical (units (unknown) date) Staff unknown) (unknown) (no (unknown) (unknown) Intake Note: (units (u nknown) date) unknown) (unknown) (no (unknown) (unknown) Intake performed (units (unknown) date) by: Brandi Monreal unknown) (unknown) (no (unknown) (unknown) Intake (units (unkno wn) date) unknown) (unknown) (no (unknown) (unknown) Irregular menses (units (unknown) date) unknown) (unknown) (no (unknown) (unknown) LM (units (unkno wn) date) unknown) (unknown) (no (unknown) (unknown) Late to care, (units ( unknown) date) otherwise healthy unknown) (unknown) (no (unknown) (unknown) Left sided LBP, (units (unknown) date) non-radiating; unknown) referral to Dr. Bowers for OMT (unknown) (no (unknown) (unknown) Live with someone (units (unknown) date) with TB or exposed unknown) to TB: No (unknown) (no (unknown) (unknown) Loc: [facility] (units (unkno wn) date) unknown) (unknown) (no (unknown) (unknown) Marital status: (units (unknown) date) unmarried,living unknown) together (unknown) (no (unknown) (unknown) Medical History (units (unknown) date) (Reviewed 09/24/21 unknown) @ 14:57 by Carlos Tejada RN) (unknown) (no (unknown) (unknown) Medications (units (un known) date) unknown) (unknown) (no (unknown) (unknown) N Yes no 148 27 (units (unknown) date) N/A absent 3 wks unknown) (unknown) (no (unknown) (unknown) N Yes no 149 32 (units (unknown) date) Vertex absent Flu unknown) shot giv (unknown) (no (unknown) (unknown) N Yes no 165 30 (units (unknown) date) Vertex absent 2wk unknown) (unknown) (no (unknown) (unknown) NF (units (unkno wn) date) unknown) (unknown) (no (unknown) (unknown) Nexplanon removed (units (unknown) date) 04/2021 and unknown) conceived on OC's; stopped with first missed period (unknown) (no (unknown) (unknown) No Known Allergies (units (unknown) date) Allergy (Verified unknown) 02/04/22 09:00) (unknown) (no (unknown) (unknown) Notes (units (unkno wn) date) unknown) (unknown) (no (unknown) (unknown) Number of Living (units (unknown) date) Children unknown) (unknown) (no (unknown) (unknown) Number of (units (unkn own) date) fetuses:: Single unknown) (unknown) (no (unknown) (unknown) Nutrition and (units ( unknown) date) weight gain unknown) counseling: special diet: discussed (unknown) (no (unknown) (unknown) OB Office Visit (units (unknown) date) unknown) (unknown) (no (unknown) (unknown) OB Visit Log (units (u nknown) date) unknown) (unknown) (no (unknown) (unknown) On control at (units (unknown) date) conception?: Yes unknown) (stopped once she learned she was ) (unknown) (no (unknown) (unknown) Other Estimates (units (unknown) date) 02/04/22 LMP unknown) (Uncertain) 40w 0d (unknown) (no (unknown) (unknown) PFSH (units (unkno wn) date) unknown) (unknown) (no (unknown) (unknown) Para Spontaneous (units (unknown) date) abortions unknown) (unknown) (no (unknown) (unknown) Partner history of (units (unknown) date) STD: denies hx unknown) (unknown) (no (unknown) (unknown) Partner history of (units (unknown) date) genital herpes: No unknown) (unknown) (no (unknown) (unknown) Partner: Vel (units (unknown) date) [place]ley unknown) (unknown) (no (unknown) (unknown) Patient comes in (units (unknown) date) for routine OB unknown) visit. No headaches, scotomata, epigastric (unknown) (no (unknown) (unknown) Patient placed at (units (unknown) date) bed rest and no unknown) provided for her command. She denies (unknown) (no (unknown) (unknown) Patient treated (units (unknown) date) with 3 doses of IM unknown) penicillin for positive RPR (unknown) (no (unknown) (unknown) Patient's age 35 (units (unknown) date) years or older as unknown) of estimated date of delivery: No (unknown) (no (unknown) (unknown) Patient: (units (unkno wn) date) Franklyn Mayfield unknown) MR#: [id number] (unknown) (no (unknown) (unknown) Street Department Dispatcher: TBD (units (unknown) date) unknown) (unknown) (no (unknown) (unknown) Personal history (units (unknown) date) of STD: denies hx unknown) (unknown) (no (unknown) (unknown) Personal history (units (unknown) date) of genital herpes: unknown) No (unknown) (no (unknown) (unknown) Position Sitting (units (unknown) date) unknown) (unknown) (no (unknown) (unknown) History (units (unknown) date) unknown) (unknown) (no (unknown) (unknown) type:: (units (unknown) date) First unknown) (unknown) (no (unknown) (unknown) Education (units (unknown) date) unknown) (unknown) (no (unknown) (unknown) Initial (units (unknown) date) Assessment unknown) (unknown) (no (unknown) (unknown) Specific (units (unknown) date) Issues/Plans unknown) (unknown) (no (unknown) (unknown) Testing: (units (unknown) date) discussed unknown) (unknown) (no (unknown) (unknown) Visit (units (unknown) date) unknown) (unknown) (no (unknown) (unknown) education (units (unknown) date) packet: unknown) symptoms, Vitamins and iron, Diet and (unknown) (no (unknown) (unknown) Primary Care (units (u nknown) date) Provider: LAURA Langston unknown) Alejandro (unknown) (no (unknown) (unknown) Primary Ob (units (unk nown) date) Provider: unknown) Marcos Diaz (unknown) (no (unknown) (unknown) Prior GBS-Infected (units (unknown) date) child: No unknown) (unknown) (no (unknown) (unknown) Providers (units (unkn own) date) unknown) (unknown) (no (unknown) (unknown) Pt here for OB (units (unknown) date) Check unknown) (unknown) (no (unknown) (unknown) Qualifiers: (units (un known) date) unknown) (unknown) (no (unknown) (unknown) RPR ordered and pt (units (unknown) date) will have drawn unknown) today. F/u 2 wks or as needed. 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 (unknown) (no (unknown) (unknown) She did not have (units (unknown) date) her RPR titer unknown) performed after her previous visit as ordered. (unknown) (no (unknown) (unknown) She does have a (units (unknown) date) lot of pelvic unknown) discomfort and advised to try to get a (unknown) (no (unknown) (unknown) She is doing well (units (unknown) date) and she continues unknown) to regain her energy levels. She denies (unknown) (no (unknown) (unknown) She will however (units (unknown) date) have it performed unknown) today. Or she is having some left round (unknown) (no (unknown) (unknown) Signed By: (units (unk nown) date) <Electronically unknown) signed by Marcos Diaz MD> (unknown) (no (unknown) (unknown) Signed (units (unkno wn) date) unknown) (unknown) (no (unknown) (unknown) Smoking Status: (units (unknown) date) Never smoker unknown) (unknown) (no (unknown) (unknown) Social History (units (unknown) date) unknown) (unknown) (no (unknown) (unknown) Status: Acute (units ( unknown) date) unknown) (unknown) (no (unknown) (unknown) Support (units (unkno wn) date) Person(s):: Vel unknown) (unknown) (no (unknown) (unknown) Surgical History (units (unknown) date) (Reviewed 09/24/21 unknown) @ 14:57 by Carlos Tejada RN) (unknown) (no (unknown) (unknown) Surrogate (units (unkn own) date) ?: no unknown) (unknown) (no (unknown) (unknown) Symptoms since (units (unknown) date) LMP: Reports unknown) amenorrhea, nausea, fatigue, breast tenderness, (unknown) (no (unknown) (unknown) TR Yes no 142 37 (units (unknown) date) Vertex absent GBS unknown) NEGATIV (unknown) (no (unknown) (unknown) TR Yes no 144 34 (units (unknown) date) Vertex absent 2 wks unknown) (unknown) (no (unknown) (unknown) TR Yes no 146 36 (units (unknown) date) Vertex absent 1 wk unknown) (unknown) (no (unknown) (unknown) Franklyn and Vel (units (unknown) date) return today for unknown) her AVERY visit now 37+ 5 weeks (unknown) (no (unknown) (unknown) Franklyn and Vel (units (unknown) date) return today for unknown) her AVERY visit now at 38+ 4 weeks (unknown) (no (unknown) (unknown) Franklyn and Vel (units (unknown) date) returns today for unknown) her AVERY visit now at 36+ 4 weeks (unknown) (no (unknown) (unknown) Franklyn presents (units (unknown) date) today for her unknown) initial OB visit now at 19+ 4 weeks (unknown) (no (unknown) (unknown) Franklyn presents (units (unknown) date) today for routine unknown) OB visit at 32w3d. She reports good (unknown) (no (unknown) (unknown) Franklyn returns (units (unknown) date) today for her AVERY unknown) visit now at 23+ 4 weeks gestational age. (unknown) (no (unknown) (unknown) Franklyn returns (units (unknown) date) today for her AVERY unknown) visit now at 27+ 4 weeks gestational age. (unknown) (no (unknown) (unknown) Franklyn returns (units (unknown) date) today for her AVERY unknown) visit now at 34+ 4 weeks gestational age. (unknown) (no (unknown) (unknown) Teratogen (units (unkn own) date) Exposures since unknown) LMP/Conception: Denies prescription medications, (unknown) (no (unknown) (unknown) Testing Education (units (unknown) date) unknown) (unknown) (no (unknown) (unknown) Testing education (units (unknown) date) completed: group B unknown) strep and Spina bifida testing (unknown) (no (unknown) (unknown) This note may have (units (unknown) date) been all or unknown) partially generated using voice recognition (unknown) (no (unknown) (unknown) Tobacco + (units (unkn own) date) Substance Use unknown) (unknown) (no (unknown) (unknown) Tobacco Status (units (unknown) date) unknown) (unknown) (no (unknown) (unknown) Trimester: third (units (unknown) date) trimester Qualified unknown) Code(s): O99.013 - Anemia (unknown) (no (unknown) (unknown) Trimester:: 3rd (units (unknown) date) Trimester unknown) (28wks-Del) (unknown) (no (unknown) (unknown) Type(s) of (units (unk nown) date) exercise: yoga unknown) (unknown) (no (unknown) (unknown) UProtein Movement (units (unknown) date) PreLabor FHR Fndl unknown) Ht Pres Edema Cerv Exam US/Comment Next Appt (unknown) (no (unknown) (unknown) VDRL titer remains (units (unknown) date) pending. Repeat unknown) platelet count 2 drawn today. GBS obtained (unknown) (no (unknown) (unknown) Varicella/chicken (units (unknown) date) pox status: unknown unknown) (unknown) (no (unknown) (unknown) Visit Date: (units (un known) date) 09/24/21 Last unknown) Updated by: Marcos Diaz MD (unknown) (no (unknown) (unknown) Visit Date: (units (un known) date) 10/22/21 Last unknown) Updated by: Marcos Diaz MD (unknown) (no (unknown) (unknown) Visit Date: (units (un known) date) 11/19/21 Last unknown) Updated by: Marcos Diaz MD (unknown) (no (unknown) (unknown) Visit Date: (units (un known) date) 12/11/21 Last unknown) Updated by: Divina Perez MD (unknown) (no (unknown) (unknown) Visit Date: (units (un known) date) 12/23/21 Last unknown) Updated by: Cindy Flores P.A-C (unknown) (no (unknown) (unknown) Visit Date: (units (un known) date) 01/07/22 Last unknown) Updated by: Marcos Diaz MD (unknown) (no (unknown) (unknown) Visit Date: (units (un known) date) 01/21/22 Last unknown) Updated by: Marcos Diaz MD (unknown) (no (unknown) (unknown) Visit Date: (units (un known) date) 01/29/22 Last unknown) Updated by: Marcos Diaz MD (unknown) (no (unknown) (unknown) Visit Date: (units (un known) date) 02/04/22 Last unknown) Updated by: Marcos Diaz MD (unknown) (no (unknown) (unknown) Visit Reasons: OB (units (unknown) date) unknown) (unknown) (no (unknown) (unknown) Vitals (units (unkno wn) date) unknown) (unknown) (no (unknown) (unknown) WG (units (unkno wn) date) unknown) (unknown) (no (unknown) (unknown) Weeks gestation:: (units (unknown) date) 38 unknown) (unknown) (no (unknown) (unknown) Weeks of (units (unkno wn) date) gestation: 38 weeks unknown) Qualified Code(s): Z3A.38 - 38 weeks (unknown) (no (unknown) (unknown) Weight 195 lb (units ( unknown) date) unknown) (unknown) (no (unknown) (unknown) [place] teeth (units (u nknown) date) extracted unknown) (unknown) (no (unknown) (unknown) Yes no 138 36 (units ( unknown) date) Vertex absent unknown) 95%/1-2/0 (unknown) (no (unknown) (unknown) Yes no 144 19 N/A (units (unknown) date) absent 4 wks unknown) (unknown) (no (unknown) (unknown) Yes no 156 23 N/A (units (unknown) date) absent 4 wks unknown) (unknown) (no (unknown) (unknown) Zika virus (units (unk nown) date) exposure: No unknown) (unknown) (no (unknown) (unknown) alcohol intake: (units (unknown) date) former (occasional, unknown) only before ) (unknown) (no (unknown) (unknown) anatomic survey. (units (unknown) date) GBS culture at next unknown) visit discussed. PTL precautions reviewed (unknown) (no (unknown) (unknown) anatomy scan (units (u nknown) date) following her next unknown) visit in 4 weeks. (unknown) (no (unknown) (unknown) and follow-up will (units (unknown) date) be in 2 weeks or as unknown) needed. (unknown) (no (unknown) (unknown) and submitted (units ( unknown) date) today. Labor unknown) precautions reviewed and follow-up will be in 1 week (unknown) (no (unknown) (unknown) and vitamin-C (units ( unknown) date) daily. 1 hour GDM unknown) screen and H+H also ordered. PTL precautions (unknown) (no (unknown) (unknown) anyone in either (units (unknown) date) family with: unknown) (unknown) (no (unknown) (unknown) ay occur. (units (unkn own) date) Occasional unknown) wrong-word or 'sound-alike' substitutions may have (unknown) (no (unknown) (unknown) baby's father had (units (unknown) date) a child with unknown) defects not listed above and Denies Other (unknown) (no (unknown) (unknown) by bedside (units (unk nown) date) ultrasound. She unknown) denies contractions, bleeding, leakage of fluid per (unknown) (no (unknown) (unknown) caffeine: Yes (1 (units (unknown) date) cup/day) unknown) (unknown) (no (unknown) (unknown) carbon monox (units (u nknown) date) detector in home: unknown) Yes (unknown) (no (unknown) (unknown) complicating (units (u nknown) date) , third unknown) trimester (unknown) (no (unknown) (unknown) continue however (units (unknown) date) and again unknown) recommended that she be seen for OMT by Dr. Bowers; (unknown) (no (unknown) (unknown) contractions and (units (unknown) date) occasional round unknown) ligament pains. Her low back pain does (unknown) (no (unknown) (unknown) contractions, (units ( unknown) date) bleeding, leakage unknown) of fluid per vagina, or change in discharge but (unknown) (no (unknown) (unknown) contractions, (units ( unknown) date) bleeding, leakage unknown) of fluid per vagina, or change in discharge. (unknown) (no (unknown) (unknown) current (units (unkno wn) date) occupational unknown) exposures/hazards: No (unknown) (no (unknown) (unknown) daily servings (units (unknown) date) fruits/ve-4 unknown) (unknown) (no (unknown) (unknown) described, visit (units (unknown) date) schedule reviewed, unknown) ultrasounds policy reviewed, coverage 24 (unknown) (no (unknown) (unknown) discomfort, (units (un known) date) advised belly band. unknown) No other concerns. Flu shot given today. F/u (unknown) (no (unknown) (unknown) discussed, (units (unk nown) date) tuberculosis unknown) exposure discussed, CMV discussed, Toxoplasmosis (unknown) (no (unknown) (unknown) disorders, Denies (units (unknown) date) Cystic Fibrosis, unknown) Denies Mental Retardation/Autism, Denies (unknown) (no (unknown) (unknown) do you feel safe (units (unknown) date) at home: Yes unknown) (unknown) (no (unknown) (unknown) during the past (units (unknown) date) year weight has: unknown) remained stable (unknown) (no (unknown) (unknown) education level: (units (unknown) date) college unknown) (Associate's degree) (unknown) (no (unknown) (unknown) en 2wk (units (unkno wn) date) unknown) (unknown) (no (unknown) (unknown) evening of (units (unk nown) date) 02/10/2022 and unknown) anticipate delivery 02/11/2022. Labor precautions (unknown) (no (unknown) (unknown) movement and (units (unknown) date) denies VB, LOF, unknown) cramping and contractions. Mild pelvic bone (unknown) (no (unknown) (unknown) movement, (units (unknown) date) tone, breathing. unknown) Vertex infant 50th percentile, LYNDSAY 9. Routine (unknown) (no (unknown) (unknown) fire extinguisher (units (unknown) date) in home: Yes unknown) (unknown) (no (unknown) (unknown) firearms in home: (units (unknown) date) No unknown) (unknown) (no (unknown) (unknown) fluid per vagina, (units (unknown) date) or change in unknown) discharge but her baby remains active. Patient (unknown) (no (unknown) (unknown) frequency: 1-2 (units (unknown) date) times per week unknown) (unknown) (no (unknown) (unknown) gestation of (units (u nknown) date) unknown) (unknown) (no (unknown) (unknown) gestational age by (units (unknown) date) corrected unknown) ultrasound based LOGAN. Her nausea and vomiting (unknown) (no (unknown) (unknown) gestational age. (units (unknown) date) GBS collected at unknown) her last visit is negative. Vertex confirmed (unknown) (no (unknown) (unknown) gestational age. (units (unknown) date) Patient is not unknown) having contractions but is having significant (unknown) (no (unknown) (unknown) gestational age. (units (unknown) date) She is doing well unknown) and is having no ongoing issues. She denies (unknown) (no (unknown) (unknown) have occurred. If (units (unknown) date) there are any unknown) questions, please contact the Medical Records (unknown) (no (unknown) (unknown) having significant (units (unknown) date) fatigue issues. She unknown) is been having some non radicular left (unknown) (no (unknown) (unknown) her baby does (units ( unknown) date) remain active. unknown) Follow-up OB ultrasound ordered to complete (unknown) (no (unknown) (unknown) her baby is (units (un known) date) increasingly unknown) active. Size equals dates for adjusted LOGAN and follow (unknown) (no (unknown) (unknown) hours a day and (units (unknown) date) participation of unknown) father in care and office visits (unknown) (no (unknown) (unknown) household members: (units (unknown) date) significant other unknown) (unknown) (no (unknown) (unknown) housing: apartment (units (unknown) date) unknown) (unknown) (no (unknown) (unknown) jw (units (unkno wn) date) unknown) (unknown) (no (unknown) (unknown) ligament pain (units ( unknown) date) radiating down into unknown) her left groin with movement and activities (unknown) (no (unknown) (unknown) lives (units (unkno wn) date) independently: Yes unknown) (unknown) (no (unknown) (unknown) marital status: (units (unknown) date) unmarried,living unknown) together (unknown) (no (unknown) (unknown) number of (units (unkn own) date) children: 0 unknown) (unknown) (no (unknown) (unknown) 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 Please (unknown) (no (unknown) (unknown) or as needed. (units ( unknown) date) unknown) (unknown) (no (unknown) (unknown) pain. Good (units (unknown) date) movement. No unknown) vaginal bleeding or discharge. No contractions. (unknown) (no (unknown) (unknown) particularly when (units (unknown) date) she is standing or unknown) sitting for prolonged periods of time. (unknown) (no (unknown) (unknown) per vagina, or (units (unknown) date) change in unknown) discharge. She is having occasional [place] [place] (unknown) (no (unknown) (unknown) pets and animals: (units (unknown) date) No unknown) (unknown) (no (unknown) (unknown) precautions (units (un known) date) reviewed and unknown) follow-up will be in 1 week or as needed. (unknown) (no (unknown) (unknown) precautions (units (un known) date) reviewed with the unknown) patient. (unknown) (no (unknown) (unknown) precautions, (units (u nknown) date) Listeriosis unknown) prevention and Rubella Immunization (unknown) (no (unknown) (unknown) prenat.vits,momo,mi (units (unknown) date) [id number] 1 tab unknown) PO DAILY 09/12/21 [History Confirmed (unknown) (no (unknown) (unknown) care (units ( unknown) date) reviewed at length. unknown) Will plan to order follow-up growth and (unknown) (no (unknown) (unknown) labs and (units (unknown) date) quad screen drawn unknown) today. Course and conduct of routine (unknown) (no (unknown) (unknown) read the note (units ( unknown) date) carefully and unknown) recognize, using context, where these substitutions (unknown) (no (unknown) (unknown) referral placed. (units (unknown) date) PTL precautions unknown) reviewed and follow-up will be in 3 weeks. (unknown) (no (unknown) (unknown) requests induction (units (unknown) date) prior to 40 weeks unknown) and will admit for cervical ripening on the (unknown) (no (unknown) (unknown) reviewed and (units (u nknown) date) follow-up will be unknown) in 4 weeks or as needed. (unknown) (no (unknown) (unknown) reviewed. (units (unkn own) date) unknown) (unknown) (no (unknown) (unknown) seatbelt use: (units ( unknown) date) always unknown) (unknown) (no (unknown) (unknown) second hand (units (un known) date) exposure: No unknown) (unknown) (no (unknown) (unknown) shooting pains (units (unknown) date) down the inner unknown) thighs. She also denies bleeding, leakage of (unknown) (no (unknown) (unknown) sided lower back (units (unknown) date) pain and will ask unknown) Dr. Bowers to evaluate for OMT. Initial (unknown) (no (unknown) (unknown) software. Although (units (unknown) date) every effort is unknown) made to edit content, planetarium technician errors m (unknown) (no (unknown) (unknown) special phyllis (units ( unknown) date) needs: No unknown) (unknown) (no (unknown) (unknown) substance use (units ( unknown) date) type: does not use unknown) (unknown) (no (unknown) (unknown) support belt. (units ( unknown) date) Brief ultrasound unknown) was performed for patient reassurance. Good (unknown) (no (unknown) (unknown) travel history: (units (unknown) date) recent ([place] unknown) ([place])) (unknown) (no (unknown) (unknown) up ultrasound (units ( unknown) date) ordered to complete unknown) anatomic survey. She continues to take iron (unknown) (no (unknown) (unknown) urinary frequency, (units (unknown) date) irritability, unknown) bloating and other (constipated) (unknown) (no (unknown) (unknown) vagina, or change (units (unknown) date) in discharge but unknown) her baby remains active. VDRL titer from (unknown) (no (unknown) (unknown) water heater temp (units (unknown) date) set < 120 deg: No unknown) (will check and adjust) (unknown) (no (unknown) (unknown) weight gain, Fish (units (unknown) date) and mercury intake, unknown) Caffeine use, Exercise and activity, (unknown) (no (unknown) (unknown) well-balanced (units ( unknown) date) diet: daily or most unknown) days (unknown) (no (unknown) (unknown) which she (units (unkn own) date) experienced earlier unknown) in the has resolved. She is however (unknown) (no (unknown) (unknown) work/environmental (units (unknown) date) /hazards, Sexual unknown) activity, X-ray exposure, Medication use, (unknown) (no (unknown) (unknown) working smoke (units ( unknown) date) detector in home: unknown) Yes Result panel 4 (unknown) (no date) (unknown) (unknown) (no value) (units (un known) unknown) (unknown) (no date) (unknown) (unknown) (no value) (units (un known) unknown) Result panel 5 (unknown) (no (unknown) (unknown) (no value) (units (unk nown) date) unknown) (unknown) (no (unknown) (unknown) (+10 lb 2 oz) (units ( unknown) date) 110/70 unknown) (unknown) (no (unknown) (unknown) (+19 lb 7 oz) (units ( unknown) date) 120/70 unknown) (unknown) (no (unknown) (unknown) (+25 lb) 126/60 (units (unknown) date) N unknown) (unknown) (no (unknown) (unknown) (+25 lb) 134/60 (units (unknown) date) unknown) (unknown) (no (unknown) (unknown) (+35 lb) 118/72 (units (unknown) date) N unknown) (unknown) (no (unknown) (unknown) (+36 lb) 116/74 (units (unknown) date) N unknown) (unknown) (no (unknown) (unknown) (+40 lb) 112/72 (units (unknown) date) N unknown) (unknown) (no (unknown) (unknown) (+44 lb) 112/72 (units (unknown) date) N unknown) (unknown) (no (unknown) (unknown) (+45 lb) 112/66 (units (unknown) date) N unknown) (unknown) (no (unknown) (unknown) Genetic (units (unkn own) date) Screening/Teratol unknown) ogy Counseling - Includes patient, baby's father, or (unknown) (no (unknown) (unknown) -?-?-?-?-?-?-?-? (units (unknown) date) -?-?-?-? unknown) (unknown) (no (unknown) (unknown) [id number] (units (unkno wn) date) unknown) (unknown) (no (unknown) (unknown) 03/19/22 (units (unkno wn) date) unknown) (unknown) (no (unknown) (unknown) 09/24/21 (units (unkno wn) date) unknown) (unknown) (no (unknown) (unknown) 10/22/21 (units (unkno wn) date) unknown) (unknown) (no (unknown) (unknown) 11/19/21 (units (unkno wn) date) unknown) (unknown) (no (unknown) (unknown) 12/11/21 (units (unkno wn) date) unknown) (unknown) (no (unknown) (unknown) 12/23/21 (units (unkno wn) date) unknown) (unknown) (no (unknown) (unknown) 01/07/22 (units (unkno wn) date) unknown) (unknown) (no (unknown) (unknown) 01/21/22 (units (unkno wn) date) unknown) (unknown) (no (unknown) (unknown) 01/29/22 (units (unkno wn) date) unknown) (unknown) (no (unknown) (unknown) 01/07 shows a (units (u nknown) date) decline to 1:8 unknown) from 1:16 at the time of initial diagnosis. Labor (unknown) (no (unknown) (unknown) 02/04/22 (units (unkno wn) date) unknown) (unknown) (no (unknown) (unknown) 02/14/2022 by US (units (unknown) date) unknown) (unknown) (no (unknown) (unknown) 122/72 N (units (unkno wn) date) unknown) (unknown) (no (unknown) (unknown) 19w 4d 160 lb 2 (units (unknown) date) oz unknown) (unknown) (no (unknown) (unknown) 23w 4d 169 lb 7 (units (unknown) date) oz unknown) (unknown) (no (unknown) (unknown) 27w 4d 175 lb (units ( unknown) date) unknown) (unknown) (no (unknown) (unknown) 30w 5d 175 lb (units ( unknown) date) unknown) (unknown) (no (unknown) (unknown) 32w 3d 185 lb (units ( unknown) date) unknown) (unknown) (no (unknown) (unknown) 34w 4d 186 lb (units ( unknown) date) unknown) (unknown) (no (unknown) (unknown) 36w 4d 190 lb (units ( unknown) date) unknown) (unknown) (no (unknown) (unknown) 37w 5d 194 lb (units ( unknown) date) unknown) (unknown) (no (unknown) (unknown) 38w 4d 195 lb (units ( unknown) date) unknown) (unknown) (no (unknown) (unknown) 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 First positive test sometime in (unknown) (no (unknown) (unknown) Age/Sex: 21 / F (units (unknown) date) Date of Service: unknown) (unknown) (no (unknown) (unknown) Allergies (units (unkn own) date) unknown) (unknown) (no (unknown) (unknown) [place], [place] (units ( unknown) date) [id number] unknown) (unknown) (no (unknown) (unknown) Aneuploidy (units (unk nown) date) Screening unknown) Offered: Accepted (unknown) (no (unknown) (unknown) Anticipate (units (unknown) date) [facility] unknown) (unknown) (no (unknown) (unknown) Anticipated (units (un known) date) course of unknown) care: discussed (unknown) (no (unknown) (unknown) May, but never (units (unknown) date) sought care for unknown) until last week. (unknown) (no (unknown) (unknown) Assessment and (units (unknown) date) Plan unknown) (unknown) (no (unknown) (unknown) Attending Dr: (units ( unknown) date) Marcos Diaz unknown) (unknown) (no (unknown) (unknown) (units (unkno wn) date) Plan/Preferences unknown) (unknown) (no (unknown) (unknown) Planning (units (unknown) date) unknown) (unknown) (no (unknown) (unknown) Blood (units (unkno wn) date) transfusions?: unknown) yes (Never had but would accept) (unknown) (no (unknown) (unknown) Childbirth (units (unk nown) date) Classes: unknown) discussed (unknown) (no (unknown) (unknown) Current Estimate (units (unknown) date) 02/14/22 unknown) Ultrasound #1 44w 5d (unknown) (no (unknown) (unknown) Current (units (unkno wn) date) History unknown) (unknown) (no (unknown) (unknown) : 2000 (units (unknown) date) Acct:[id number] unknown) (unknown) (no (unknown) (unknown) Date (units (unkno wn) date) unknown) (unknown) (no (unknown) (unknown) Denies Congenital (units (unknown) date) Heart Defect, unknown) Denies Down Syndrome, Denies Muscular Dystrophy, (unknown) (no (unknown) (unknown) Denies Maternal (units (unknown) date) Metabolic unknown) Disorder (EG,TYPE 1 Diabetes, PKU), Denies Patient or (unknown) (no (unknown) (unknown) Denies Neural (units ( unknown) date) Tube Defect unknown) (Meningomyelocele , Spina Bifida, or Anencephaly), (unknown) (no (unknown) (unknown) Denies Sickle (units ( unknown) date) Cell Disease or unknown) Trait (), Denies Hemophilia or other blood (unknown) (no (unknown) (unknown) Denies Woody-Sachs (units (unknown) date) (Ashkenazi unknown) Confucianism, Cajun, Scottish Greenlandic), Denies Jose (unknown) (no (unknown) (unknown) Denies other (units (u nknown) date) unknown) (unknown) (no (unknown) (unknown) Denies over the (units (unknown) date) counter unknown) medications, Denies alcohol, Denies illicit drugs and (unknown) (no (unknown) (unknown) Depression: (units (un known) date) discussed unknown) (unknown) (no (unknown) (unknown) Dept at (units (unkno wn) date) . 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), (unknown) (no (unknown) (unknown) Documented By: (units (unknown) date) Marcos Diaz E unknown) 03/19/22 1623 (unknown) (no (unknown) (unknown) Draft (units (unkno wn) date) unknown) (unknown) (no (unknown) (unknown) E 1 wk (units (unkno wn) date) unknown) (unknown) (no (unknown) (unknown) LOGAN Calculator (units (unknown) date) unknown) (unknown) (no (unknown) (unknown) EGA Weight BP (units ( unknown) date) UGlucose unknown) (unknown) (no (unknown) (unknown) Estimated (units (unkn own) date) Delivery Date unknown) Method Current (unknown) (no (unknown) (unknown) Expected (units (unkno wn) date) Delivery unknown) Route/Plan (unknown) (no (unknown) (unknown) Family History (units (unknown) date) (Reviewed unknown) 09/24/21 @ 14:57 by Carlos Tejada RN) (unknown) (no (unknown) (unknown) Father of Baby: (units (unknown) date) same unknown) (unknown) (no (unknown) (unknown) [facility]) (unknown) (no (unknown) (unknown) First Trimester (units (unknown) date) Education unknown) Checklist (unknown) (no (unknown) (unknown) (units (unkno wn) date) unknown) (unknown) (no (unknown) (unknown) Genetic (units (unkno wn) date) Screening + unknown) Counseling (unknown) (no (unknown) (unknown) Genetic (units (unkno wn) date) Screening unknown) (unknown) (no (unknown) (unknown) Grandmother (units (un known) date) Bladder cancer unknown) (unknown) (no (unknown) (unknown) Grandmother (units (un known) date) Diabetes mellitus unknown) (unknown) (no (unknown) (unknown) 1 (units (unkn own) date) Multiple births unknown) (unknown) (no (unknown) (unknown) HIV risk (units (unkno wn) date) evaluation: low unknown) risk (unknown) (no (unknown) (unknown) Health Center (units ( unknown) date) Education unknown) (unknown) (no (unknown) (unknown) Health center (units ( unknown) date) information: unknown) nature of practice discussed, personnel (unknown) (no (unknown) (unknown) Hepatitis C risk (units (unknown) date) evaluation: low unknown) risk (unknown) (no (unknown) (unknown) Her baby remains (units (unknown) date) active but she unknown) denies contractions, bleeding, leakage of fluid (unknown) (no (unknown) (unknown) History of (units (unk nown) date) Hepatitis B: No unknown) (unknown) (no (unknown) (unknown) History of (units (unk nown) date) Hepatitis C: No unknown) (unknown) (no (unknown) (unknown) [facility] (units (u nknown) [facility]) unknown) (unknown) (no (unknown) (unknown) [facility] (units (u nknown) date) Chorea, Denies unknown) Other inherited genetic or chromosomal disorder, (unknown) (no (unknown) (unknown) Hx # (units (u nknown) date) Pregnancies unknown) Elective abortions (unknown) (no (unknown) (unknown) Hx # Term (units (unkn own) date) Pregnancies unknown) Ectopic pregnancies (unknown) (no (unknown) (unknown) Hx of frequent (units (unknown) date) UTI's (no hx of unknown) pyelo); watch closely for UTI sx (unknown) (no (unknown) (unknown) will be (units (unknown) date) adopted?: no unknown) (unknown) (no (unknown) (unknown) Infection (units (unkn own) date) History unknown) (unknown) (no (unknown) (unknown) Infectious (units (unk nown) date) Disease Education unknown) (unknown) (no (unknown) (unknown) Infectious (units (unk nown) date) disease exposure: unknown) chicken pox immunity discussed, hepatitis risk (unknown) (no (unknown) (unknown) Initial US LOGAN (units (unknown) date) 10 days later unknown) than LOGAN by LMP (Irregular, uncertain date); LOGAN (unknown) (no (unknown) (unknown) Initial Weight: (units (unknown) date) 150 lb unknown) (unknown) (no (unknown) (unknown) Initials (units (unkno wn) date) unknown) (unknown) (no (unknown) (unknown) Intake (units (unkno wn) date) unknown) (unknown) (no (unknown) (unknown) Irregular menses (units (unknown) date) unknown) (unknown) (no (unknown) (unknown) LM (units (unkno wn) date) unknown) (unknown) (no (unknown) (unknown) Late to care, (units ( unknown) date) otherwise healthy unknown) (unknown) (no (unknown) (unknown) Left sided LBP, (units (unknown) date) non-radiating; unknown) referral to Dr. Bowers for OMT (unknown) (no (unknown) (unknown) Live with (units (unkn own) date) someone with TB unknown) or exposed to TB: No (unknown) (no (unknown) (unknown) Loc: [facility] (units (unkno wn) date) unknown) (unknown) (no (unknown) (unknown) Marital status: (units (unknown) date) unmarried,living unknown) together (unknown) (no (unknown) (unknown) Medical History (units (unknown) date) (Reviewed unknown) 09/24/21 @ 14:57 by Carlos Tejada RN) (unknown) (no (unknown) (unknown) N Yes no 138 36 (units (unknown) date) Vertex absent unknown) 95%/1-2/0 (unknown) (no (unknown) (unknown) N Yes no 148 27 (units (unknown) date) N/A absent 3 wks unknown) (unknown) (no (unknown) (unknown) N Yes no 149 32 (units (unknown) date) Vertex absent Flu unknown) shot giv (unknown) (no (unknown) (unknown) N Yes no 165 30 (units (unknown) date) Vertex absent 2wk unknown) (unknown) (no (unknown) (unknown) NF (units (unkno wn) date) unknown) (unknown) (no (unknown) (unknown) Nexplanon removed (units (unknown) date) 04/2021 and unknown) conceived on OC's; stopped with first missed period (unknown) (no (unknown) (unknown) No Known (units (unkno wn) date) Allergies Allergy unknown) (Verified 02/04/22 09:00) (unknown) (no (unknown) (unknown) Notes (units (unkno wn) date) unknown) (unknown) (no (unknown) (unknown) Number of Living (units (unknown) date) Children unknown) (unknown) (no (unknown) (unknown) Number of (units (unkn own) date) fetuses:: Single unknown) (unknown) (no (unknown) (unknown) Nutrition and (units ( unknown) date) weight gain unknown) counseling: special diet: discussed (unknown) (no (unknown) (unknown) OB Office Visit (units (unknown) date) unknown) (unknown) (no (unknown) (unknown) OB Visit Log (units (u nknown) date) unknown) (unknown) (no (unknown) (unknown) On control (units (unknown) date) at conception?: unknown) Yes (stopped once she learned she was ) (unknown) (no (unknown) (unknown) Other Estimates (units (unknown) date) 02/04/22 LMP unknown) (Uncertain) 46w 1d (unknown) (no (unknown) (unknown) PFSH (units (unkno wn) date) unknown) (unknown) (no (unknown) (unknown) Para Spontaneous (units (unknown) date) abortions unknown) (unknown) (no (unknown) (unknown) Partner history (units (unknown) date) of STD: denies hx unknown) (unknown) (no (unknown) (unknown) Partner history (units (unknown) date) of genital unknown) herpes: No (unknown) (no (unknown) (unknown) Partner: Vel (units (unknown) date) [place] unknown) (unknown) (no (unknown) (unknown) Patient comes in (units (unknown) date) for routine OB unknown) visit. No headaches, scotomata, epigastric (unknown) (no (unknown) (unknown) Patient placed (units (unknown) date) at bed rest and unknown) no provided for her command. She denies (unknown) (no (unknown) (unknown) Patient treated (units (unknown) date) with 3 doses of unknown) IM penicillin for positive RPR (unknown) (no (unknown) (unknown) Patient's age 35 (units (unknown) date) years or older as unknown) of estimated date of delivery: No (unknown) (no (unknown) (unknown) Patient: (units (unkno wn) date) Mayfield,Franklyn unknown) MR#: [id number] (unknown) (no (unknown) (unknown) Street Department Dispatcher: (units ( unknown) date) TBD unknown) (unknown) (no (unknown) (unknown) Personal history (units (unknown) date) of STD: denies hx unknown) (unknown) (no (unknown) (unknown) Personal history (units (unknown) date) of genital unknown) herpes: No (unknown) (no (unknown) (unknown) (units (unkn own) date) History unknown) (unknown) (no (unknown) (unknown) type:: (units (unknown) date) First unknown) (unknown) (no (unknown) (unknown) (units (unkno wn) date) Education unknown) (unknown) (no (unknown) (unknown) Initial (units (unknown) date) Assessment unknown) (unknown) (no (unknown) (unknown) (units (unkno wn) date) Specific unknown) Issues/Plans (unknown) (no (unknown) (unknown) (units (unkno wn) date) Testing: unknown) discussed (unknown) (no (unknown) (unknown) Visit (units (unknown) date) unknown) (unknown) (no (unknown) (unknown) (units (unkno wn) date) education packet: unknown) symptoms, Vitamins and iron, Diet and (unknown) (no (unknown) (unknown) Primary Care (units (u nknown) date) Provider: LAURA Langston unknown) [place] (unknown) (no (unknown) (unknown) Primary Ob (units (unk nown) date) Provider: unknown) Marcos Diaz (unknown) (no (unknown) (unknown) Prior (units (unkno wn) date) GBS-Infected unknown) child: No (unknown) (no (unknown) (unknown) Providers (units (unkn own) date) unknown) (unknown) (no (unknown) (unknown) RPR ordered and (units (unknown) date) pt will have unknown) drawn today. F/u 2 wks or as needed. 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 (unknown) (no (unknown) (unknown) She did not have (units (unknown) date) her RPR titer unknown) performed after her previous visit as ordered. (unknown) (no (unknown) (unknown) She does have a (units (unknown) date) lot of pelvic unknown) discomfort and advised to try to get a (unknown) (no (unknown) (unknown) She is doing (units (u nknown) date) well and she unknown) continues to regain her energy levels. She denies (unknown) (no (unknown) (unknown) She will however (units (unknown) date) have it performed unknown) today. Or she is having some left round (unknown) (no (unknown) (unknown) Signed By: (units (unk nown) date) unknown) (unknown) (no (unknown) (unknown) Smoking Status: (units (unknown) date) Never smoker unknown) (unknown) (no (unknown) (unknown) Social History (units (unknown) date) unknown) (unknown) (no (unknown) (unknown) Support (units (unkno wn) date) Person(s):: unknown) Vel (unknown) (no (unknown) (unknown) Surgical History (units (unknown) date) (Reviewed unknown) 09/24/21 @ 14:57 by Carlos Tejada RN) (unknown) (no (unknown) (unknown) Surrogate (units (unkn own) date) ?: no unknown) (unknown) (no (unknown) (unknown) Symptoms since (units (unknown) date) LMP: Reports unknown) amenorrhea, nausea, fatigue, breast tenderness, (unknown) (no (unknown) (unknown) TR Yes no 142 37 (units (unknown) date) Vertex absent GBS unknown) NEGATIV (unknown) (no (unknown) (unknown) TR Yes no 144 34 (units (unknown) date) Vertex absent 2 unknown) wks (unknown) (no (unknown) (unknown) TR Yes no 146 36 (units (unknown) date) Vertex absent 1 unknown) wk (unknown) (no (unknown) (unknown) Franklyn and (units (unk nown) date) Vel return unknown) today for her AVERY visit now 37+ 5 weeks (unknown) (no (unknown) (unknown) Franklyn and (units (unk nown) date) Vel return unknown) today for her AVERY visit now at 38+ 4 weeks (unknown) (no (unknown) (unknown) [place] and (units (unk nown) date) Vel returns unknown) today for her AVERY visit now at 36+ 4 weeks (unknown) (no (unknown) (unknown) Franklyn presents (units (unknown) date) today for her unknown) initial OB visit now at 19+ 4 weeks (unknown) (no (unknown) (unknown) Franklyn presents (units (unknown) date) today for routine unknown) OB visit at 32w3d. She reports good (unknown) (no (unknown) (unknown) Franklyn returns (units (unknown) date) today for her AVERY unknown) visit now at 23+ 4 weeks gestational age. (unknown) (no (unknown) (unknown) Franklyn returns (units (unknown) date) today for her AVERY unknown) visit now at 27+ 4 weeks gestational age. (unknown) (no (unknown) (unknown) Franklyn returns (units (unknown) date) today for her AVERY unknown) visit now at 34+ 4 weeks gestational age. (unknown) (no (unknown) (unknown) Teratogen (units (unkn own) date) Exposures since unknown) LMP/Conception: Denies prescription medications, (unknown) (no (unknown) (unknown) Testing (units (unkno wn) date) Education unknown) (unknown) (no (unknown) (unknown) Testing (units (unkno wn) date) education unknown) completed: group B strep and Spina bifida testing (unknown) (no (unknown) (unknown) This note may (units ( unknown) date) have been all or unknown) partially generated using voice recognition (unknown) (no (unknown) (unknown) Tobacco + (units (unkn own) date) Substance Use unknown) (unknown) (no (unknown) (unknown) Tobacco Status (units (unknown) date) unknown) (unknown) (no (unknown) (unknown) Type(s) of (units (unk nown) date) exercise: yoga unknown) (unknown) (no (unknown) (unknown) UProtein Movement (units (unknown) date) PreLabor FHR Fndl unknown) Ht Pres Edema Cerv Exam US/Comment Next Appt (unknown) (no (unknown) (unknown) VDRL titer (units (unk nown) date) remains pending. unknown) Repeat platelet count 2 drawn today. GBS obtained (unknown) (no (unknown) (unknown) Varicella/chicke (units (unknown) date) n pox status: unknown) unknown (unknown) (no (unknown) (unknown) Visit Date: (units (un known) date) 09/24/21 Last unknown) Updated by: Marcos Diaz MD (unknown) (no (unknown) (unknown) Visit Date: (units (un known) date) 10/22/21 Last unknown) Updated by: Marcos Diaz MD (unknown) (no (unknown) (unknown) Visit Date: (units (un known) date) 11/19/21 Last unknown) Updated by: Marcos Diaz MD (unknown) (no (unknown) (unknown) Visit Date: (units (un known) date) 12/11/21 Last unknown) Updated by: Divina Perez MD (unknown) (no (unknown) (unknown) Visit Date: (units (un known) date) 12/23/21 Last unknown) Updated by: Cindy Flores P.A-C (unknown) (no (unknown) (unknown) Visit Date: (units (un known) date) 01/07/22 Last unknown) Updated by: Marcos Diza MD (unknown) (no (unknown) (unknown) Visit Date: (units (un known) date) 01/21/22 Last unknown) Updated by: Marcos Diaz MD (unknown) (no (unknown) (unknown) Visit Date: (units (un known) date) 01/29/22 Last unknown) Updated by: Marcos Diaz MD (unknown) (no (unknown) (unknown) Visit Date: (units (un known) date) 02/04/22 Last unknown) Updated by: Marcos Diaz MD (unknown) (no (unknown) (unknown) Visit Reasons: 6 (units (unknown) date) week PP, F/U RPR unknown) titer (unknown) (no (unknown) (unknown) WG (units (unkno wn) date) unknown) (unknown) (no (unknown) (unknown) [place] teeth (units (u nknown) date) extracted unknown) (unknown) (no (unknown) (unknown) Yes no 144 19 (units ( unknown) date) N/A absent 4 wks unknown) (unknown) (no (unknown) (unknown) Yes no 156 23 (units ( unknown) date) N/A absent 4 wks unknown) (unknown) (no (unknown) (unknown) Zika virus (units (unk nown) date) exposure: No unknown) (unknown) (no (unknown) (unknown) alcohol intake: (units (unknown) date) former unknown) (occasional, only before ) (unknown) (no (unknown) (unknown) anatomic survey. (units (unknown) date) GBS culture at unknown) next visit discussed. PTL precautions reviewed (unknown) (no (unknown) (unknown) anatomy scan (units (u nknown) date) following her unknown) next visit in 4 weeks. (unknown) (no (unknown) (unknown) and follow-up (units ( unknown) date) will be in 2 unknown) weeks or as needed. (unknown) (no (unknown) (unknown) and submitted (units ( unknown) date) today. Labor unknown) precautions reviewed and follow-up will be in 1 week (unknown) (no (unknown) (unknown) and vitamin-C (units ( unknown) date) daily. 1 hour GDM unknown) screen and H+H also ordered. PTL precautions (unknown) (no (unknown) (unknown) anyone in either (units (unknown) date) family with: unknown) (unknown) (no (unknown) (unknown) baby's father (units ( unknown) date) had a child with unknown) defects not listed above and Denies Other (unknown) (no (unknown) (unknown) by bedside (units (unk nown) date) ultrasound. She unknown) denies contractions, bleeding, leakage of fluid per (unknown) (no (unknown) (unknown) caffeine: Yes (1 (units (unknown) date) cup/day) unknown) (unknown) (no (unknown) (unknown) carbon monox (units (u nknown) date) detector in home: unknown) Yes (unknown) (no (unknown) (unknown) continue however (units (unknown) date) and again unknown) recommended that she be seen for OMT by Dr. Bowers; (unknown) (no (unknown) (unknown) contractions and (units (unknown) date) occasional round unknown) ligament pains. Her low back pain does (unknown) (no (unknown) (unknown) contractions, (units ( unknown) date) bleeding, leakage unknown) of fluid per vagina, or change in discharge but (unknown) (no (unknown) (unknown) contractions, (units ( unknown) date) bleeding, leakage unknown) of fluid per vagina, or change in discharge. (unknown) (no (unknown) (unknown) current (units (unkno wn) date) occupational unknown) exposures/hazards : No (unknown) (no (unknown) (unknown) daily servings (units (unknown) date) fruits/ve-4 unknown) (unknown) (no (unknown) (unknown) described, visit (units (unknown) date) schedule unknown) reviewed, ultrasounds policy reviewed, coverage 24 (unknown) (no (unknown) (unknown) discomfort, (units (un known) date) advised belly unknown) band. No other concerns. Flu shot given today. F/u (unknown) (no (unknown) (unknown) discussed, (units (unk nown) date) tuberculosis unknown) exposure discussed, CMV discussed, Toxoplasmosis (unknown) (no (unknown) (unknown) disorders, (units (unk nown) date) Denies Cystic unknown) Fibrosis, Denies Mental Retardation/Autis m, Denies (unknown) (no (unknown) (unknown) do you feel safe (units (unknown) date) at home: Yes unknown) (unknown) (no (unknown) (unknown) during the past (units (unknown) date) year weight has: unknown) remained stable (unknown) (no (unknown) (unknown) education level: (units (unknown) date) college unknown) (Associate's degree) (unknown) (no (unknown) (unknown) en 2wk (units (unkno wn) date) unknown) (unknown) (no (unknown) (unknown) evening of (units (unk nown) date) 02/10/2022 and unknown) anticipate delivery 02/11/2022. Labor precautions (unknown) (no (unknown) (unknown) movement (units (unknown) date) and denies VB, unknown) LOF, cramping and contractions. Mild pelvic bone (unknown) (no (unknown) (unknown) movement, (units (unknown) date) tone, breathing. unknown) Vertex 50th percentile, LYNDSAY 9. Routine (unknown) (no (unknown) (unknown) fire (units (unkno wn) date) extinguisher in unknown) home: Yes (unknown) (no (unknown) (unknown) firearms in (units (un known) date) home: No unknown) (unknown) (no (unknown) (unknown) fluid per (units (unkn own) date) vagina, or change unknown) in discharge but her baby remains active. Patient (unknown) (no (unknown) (unknown) frequency: 1-2 (units (unknown) date) times per week unknown) (unknown) (no (unknown) (unknown) gestational age (units (unknown) date) by corrected unknown) ultrasound based LOGAN. Her nausea and vomiting (unknown) (no (unknown) (unknown) gestational age. (units (unknown) date) GBS collected at unknown) her last visit is negative. Vertex confirmed (unknown) (no (unknown) (unknown) gestational age. (units (unknown) date) Patient is not unknown) having contractions but is having significant (unknown) (no (unknown) (unknown) gestational age. (units (unknown) date) She is doing well unknown) and is having no ongoing issues. She denies (unknown) (no (unknown) (unknown) have occurred. (units (unknown) date) If there are any unknown) questions, please contact the Medical Records (unknown) (no (unknown) (unknown) having (units (unkno wn) date) significant unknown) fatigue issues. She is been having some non radicular left (unknown) (no (unknown) (unknown) her baby does (units ( unknown) date) remain active. unknown) Follow-up OB ultrasound ordered to complete (unknown) (no (unknown) (unknown) her baby is (units (un known) date) increasingly unknown) active. Size equals dates for adjusted LOGAN and follow (unknown) (no (unknown) (unknown) hours a day and (units (unknown) date) participation of unknown) father in care and office visits (unknown) (no (unknown) (unknown) household (units (unkn own) date) members: unknown) significant other (unknown) (no (unknown) (unknown) housing: (units (unkno wn) date) apartment unknown) (unknown) (no (unknown) (unknown) jw (units (unkno wn) date) unknown) (unknown) (no (unknown) (unknown) ligament pain (units ( unknown) date) radiating down unknown) into her left groin with movement and activities (unknown) (no (unknown) (unknown) lives (units (unkno wn) date) independently: unknown) Yes (unknown) (no (unknown) (unknown) marital status: (units (unknown) date) unmarried,living unknown) together (unknown) (no (unknown) (unknown) may occur. 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 Please (unknown) (no (unknown) (unknown) or as needed. (units ( unknown) date) unknown) (unknown) (no (unknown) (unknown) pain. Good (units (unknown) date) movement. No unknown) vaginal bleeding or discharge. No contractions. (unknown) (no (unknown) (unknown) particularly (units (u nknown) date) when she is unknown) standing or sitting for prolonged periods of time. (unknown) (no (unknown) (unknown) per vagina, or (units (unknown) date) change in unknown) discharge. She is having occasional [place] [place] (unknown) (no (unknown) (unknown) pets and (units (unkno wn) date) animals: No unknown) (unknown) (no (unknown) (unknown) precautions (units (un known) date) reviewed and unknown) follow-up will be in 1 week or as needed. (unknown) (no (unknown) (unknown) precautions (units (un known) date) reviewed with the unknown) patient. (unknown) (no (unknown) (unknown) precautions, (units (u nknown) date) Listeriosis unknown) prevention and Rubella Immunization (unknown) (no (unknown) (unknown) care (units ( unknown) date) reviewed at unknown) length. Will plan to order follow-up growth and (unknown) (no (unknown) (unknown) labs (units ( unknown) date) and quad screen unknown) drawn today. Course and conduct of routine (unknown) (no (unknown) (unknown) read the note (units ( unknown) date) carefully and unknown) recognize, using context, where these substitutions (unknown) (no (unknown) (unknown) referral placed. (units (unknown) date) PTL precautions unknown) reviewed and follow-up will be in 3 weeks. (unknown) (no (unknown) (unknown) requests (units (unkno wn) date) induction prior unknown) to 40 weeks and will admit for cervical ripening on the (unknown) (no (unknown) (unknown) reviewed and (units (u nknown) date) follow-up will be unknown) in 4 weeks or as needed. (unknown) (no (unknown) (unknown) reviewed. (units (unkn own) date) unknown) (unknown) (no (unknown) (unknown) seatbelt use: (units ( unknown) date) always unknown) (unknown) (no (unknown) (unknown) second hand (units (un known) date) exposure: No unknown) (unknown) (no (unknown) (unknown) shooting pains (units (unknown) date) down the inner unknown) thighs. She also denies bleeding, leakage of (unknown) (no (unknown) (unknown) sided lower back (units (unknown) date) pain and will ask unknown) Dr. Bowers to evaluate for OMT. Initial (unknown) (no (unknown) (unknown) software. (units (unkn own) date) Although every unknown) effort is made to edit content, planetarium technician errors (unknown) (no (unknown) (unknown) special phyllis (units ( unknown) date) needs: No unknown) (unknown) (no (unknown) (unknown) substance use (units ( unknown) date) type: does not unknown) use (unknown) (no (unknown) (unknown) support belt. (units ( unknown) date) Brief ultrasound unknown) was performed for patient reassurance. Good (unknown) (no (unknown) (unknown) travel history: (units (unknown) date) recent ([place] unknown) ([place] (unknown) (no (unknown) (unknown) up ultrasound (units ( unknown) date) ordered to unknown) complete anatomic survey. She continues to take iron (unknown) (no (unknown) (unknown) urinary (units (unkno wn) date) frequency, unknown) irritability, bloating and other (constipated) (unknown) (no (unknown) (unknown) vagina, or (units (unk nown) date) change in unknown) discharge but her baby remains active. VDRL titer from (unknown) (no (unknown) (unknown) water heater (units (u nknown) date) temp set < 120 unknown) deg: No (will check and adjust) (unknown) (no (unknown) (unknown) weight gain, (units (u nknown) date) Fish and mercury unknown) intake, Caffeine use, Exercise and activity, (unknown) (no (unknown) (unknown) well-balanced (units ( unknown) date) diet: daily or unknown) most days (unknown) (no (unknown) (unknown) which she (units (unkn own) date) experienced unknown) earlier in the has resolved. She is however (unknown) (no (unknown) (unknown) work/environment (units (unknown) date) al/hazards, unknown) Sexual activity, X-ray exposure, Medication use, (unknown) (no (unknown) (unknown) working smoke (units ( unknown) date) detector in home: unknown) Yes Result panel 6 (unknown) (no (unknown) (unknown) (no value) (units (unk nown) date) unknown) (unknown) (no (unknown) (unknown) (+10 lb 2 oz) (units ( unknown) date) 110/70 unknown) (unknown) (no (unknown) (unknown) (+19 lb 7 oz) (units ( unknown) date) 120/70 unknown) (unknown) (no (unknown) (unknown) (+25 lb) 126/60 (units (unknown) date) N unknown) (unknown) (no (unknown) (unknown) (+25 lb) 134/60 (units (unknown) date) unknown) (unknown) (no (unknown) (unknown) (+35 lb) 118/72 (units (unknown) date) N unknown) (unknown) (no (unknown) (unknown) (+36 lb) 116/74 (units (unknown) date) N unknown) (unknown) (no (unknown) (unknown) (+40 lb) 112/72 (units (unknown) date) N unknown) (unknown) (no (unknown) (unknown) (+44 lb) 112/72 (units (unknown) date) N unknown) (unknown) (no (unknown) (unknown) (+45 lb) 112/66 (units (unknown) date) N unknown) (unknown) (no (unknown) (unknown) Genetic (units (unkn own) date) Screening/Teratol unknown) ogy Counseling - Includes patient, baby's father, or (unknown) (no (unknown) (unknown) -?-?-?-?-?-?-?-? (units (unknown) date) -?-?-?-? unknown) (unknown) (no (unknown) (unknown) [id number] (units (unkno wn) date) unknown) (unknown) (no (unknown) (unknown) 03/19/22 (units (unkno wn) date) unknown) (unknown) (no (unknown) (unknown) 09/24/21 (units (unkno wn) date) unknown) (unknown) (no (unknown) (unknown) 10/22/21 (units (unkno wn) date) unknown) (unknown) (no (unknown) (unknown) 11/19/21 (units (unkno wn) date) unknown) (unknown) (no (unknown) (unknown) 12/11/21 (units (unkno wn) date) unknown) (unknown) (no (unknown) (unknown) 12/23/21 (units (unkno wn) date) unknown) (unknown) (no (unknown) (unknown) 01/07/22 (units (unkno wn) date) unknown) (unknown) (no (unknown) (unknown) 01/21/22 (units (unkno wn) date) unknown) (unknown) (no (unknown) (unknown) 01/29/22 (units (unkno wn) date) unknown) (unknown) (no (unknown) (unknown) 01/07 shows a (units (u nknown) date) decline to 1:8 unknown) from 1:16 at the time of initial diagnosis. Labor (unknown) (no (unknown) (unknown) 02/04/22 (units (unkno wn) date) unknown) (unknown) (no (unknown) (unknown) 02/14/2022 by [place] (units (unknown) date) unknown) (unknown) (no (unknown) (unknown) 122/72 N (units (unkno wn) date) unknown) (unknown) (no (unknown) (unknown) 16:29 (units (unkno wn) date) unknown) (unknown) (no (unknown) (unknown) 19w 4d 160 lb 2 (units (unknown) date) oz unknown) (unknown) (no (unknown) (unknown) 23w 4d 169 lb 7 (units (unknown) date) oz unknown) (unknown) (no (unknown) (unknown) 27w 4d 175 lb (units ( unknown) date) unknown) (unknown) (no (unknown) (unknown) 30w 5d 175 lb (units ( unknown) date) unknown) (unknown) (no (unknown) (unknown) 32w 3d 185 lb (units ( unknown) date) unknown) (unknown) (no (unknown) (unknown) 34w 4d 186 lb (units ( unknown) date) unknown) (unknown) (no (unknown) (unknown) 36w 4d 190 lb (units ( unknown) date) unknown) (unknown) (no (unknown) (unknown) 37w 5d 194 lb (units ( unknown) date) unknown) (unknown) (no (unknown) (unknown) 38w 4d 195 lb (units ( unknown) date) unknown) (unknown) (no (unknown) (unknown) 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 First positive test sometime in (unknown) (no (unknown) (unknown) Age/Sex: 21 / F (units (unknown) date) Date of Service: unknown) (unknown) (no (unknown) (unknown) Allergies (units (unkn own) date) unknown) (unknown) (no (unknown) (unknown) [place]IN [place] (units ( unknown) date) [id number] unknown) (unknown) (no (unknown) (unknown) Aneuploidy (units (unk nown) date) Screening unknown) Offered: Accepted (unknown) (no (unknown) (unknown) Anticipate (units (unknown) date) [facility] unknown) (unknown) (no (unknown) (unknown) Anticipated (units (un known) date) course of unknown) care: discussed (unknown) (no (unknown) (unknown) May, but never (units (unknown) date) sought care for unknown) until last week. (unknown) (no (unknown) (unknown) Assessment and (units (unknown) date) Plan unknown) (unknown) (no (unknown) (unknown) Attending Dr: (units ( unknown) date) Marcos Diaz unknown) (unknown) (no (unknown) (unknown) BMI 26.6 (units (unkno wn) date) unknown) (unknown) (no (unknown) (unknown) BP 126/84 (units (unkn own) date) unknown) (unknown) (no (unknown) (unknown) (units (unkno wn) date) Plan/Preferences unknown) (unknown) (no (unknown) (unknown) Planning (units (unknown) date) unknown) (unknown) (no (unknown) (unknown) Blood Pressure (units (unknown) date) Location Lt unknown) brachial (unknown) (no (unknown) (unknown) Blood (units (unkno wn) date) transfusions?: unknown) yes (Never had but would accept) (unknown) (no (unknown) (unknown) Childbirth (units (unk nown) date) Classes: unknown) discussed (unknown) (no (unknown) (unknown) Current Estimate (units (unknown) date) 02/14/22 unknown) Ultrasound #1 44w 5d (unknown) (no (unknown) (unknown) Current (units (unkno wn) date) History unknown) (unknown) (no (unknown) (unknown) : 2000 (units (unknown) date) Acct:[id number] unknown) (unknown) (no (unknown) (unknown) Date (units (unkno wn) date) unknown) (unknown) (no (unknown) (unknown) Delivery Date: (units (unknown) date) 02/07/22 unknown) (unknown) (no (unknown) (unknown) Denies Congenital (units (unknown) date) Heart Defect, unknown) Denies Down Syndrome, Denies Muscular Dystrophy, (unknown) (no (unknown) (unknown) Denies Maternal (units (unknown) date) Metabolic unknown) Disorder (EG,TYPE 1 Diabetes, PKU), Denies Patient or (unknown) (no (unknown) (unknown) Denies Neural (units ( unknown) date) Tube Defect unknown) (Meningomyelocele , Spina Bifida, or Anencephaly), (unknown) (no (unknown) (unknown) Denies Sickle (units ( unknown) date) Cell Disease or unknown) Trait (), Denies Hemophilia or other blood (unknown) (no (unknown) (unknown) Denies Woody-Sachs (units (unknown) date) (Ashkenazi unknown) Confucianism, Cajun, Scottish Greenlandic), Denies Jose (unknown) (no (unknown) (unknown) Denies other (units (u nknown) date) unknown) (unknown) (no (unknown) (unknown) Denies over the (units (unknown) date) counter unknown) medications, Denies alcohol, Denies illicit drugs and (unknown) (no (unknown) (unknown) Depression: (units (un known) date) discussed unknown) (unknown) (no (unknown) (unknown) Dept at (units (unkno wn) date) . 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), (unknown) (no (unknown) (unknown) Documented By: (units (unknown) date) Marcos Diaz unknownRedd JENSEN 03/19/22 1623 (unknown) (no (unknown) (unknown) Draft (units (unkno wn) date) unknown) (unknown) (no (unknown) (unknown) E 1 wk (units (unkno wn) date) unknown) (unknown) (no (unknown) (unknown) LOGAN Calculator (units (unknown) date) unknown) (unknown) (no (unknown) (unknown) EGA Weight BP (units ( unknown) date) UGlucose unknown) (unknown) (no (unknown) (unknown) Estimated (units (unkn own) date) Delivery Date unknown) Method Current (unknown) (no (unknown) (unknown) Expected (units (unkno wn) date) Delivery unknown) Route/Plan (unknown) (no (unknown) (unknown) Family History (units (unknown) date) (Reviewed unknown) 09/24/21 @ 14:57 by Carlos Tejada RN) (unknown) (no (unknown) (unknown) Father of Baby: (units (unknown) date) same unknown) (unknown) (no (unknown) (unknown) Feeding: bottle (units (unknown) date) unknown) (unknown) (no (unknown) (unknown) [facility]) (unknown) (no (unknown) (unknown) First Trimester (units (unknown) date) Education unknown) Checklist (unknown) (no (unknown) (unknown) (units (unkno wn) date) unknown) (unknown) (no (unknown) (unknown) Genetic (units (unkno wn) date) Screening + unknown) Counseling (unknown) (no (unknown) (unknown) Genetic (units (unkno wn) date) Screening unknown) (unknown) (no (unknown) (unknown) Grandmother (units (un known) date) Bladder cancer unknown) (unknown) (no (unknown) (unknown) Grandmother (units (un known) date) Diabetes mellitus unknown) (unknown) (no (unknown) (unknown) 1 (units (unkn own) date) Multiple births unknown) (unknown) (no (unknown) (unknown) : 1 (units (unk nown) date) unknown) (unknown) (no (unknown) (unknown) HIV risk (units (unkno wn) date) evaluation: low unknown) risk (unknown) (no (unknown) (unknown) Health Center (units ( unknown) date) Education unknown) (unknown) (no (unknown) (unknown) Health center (units ( unknown) date) information: unknown) nature of practice discussed, personnel (unknown) (no (unknown) (unknown) Height 5 ft 8 in (units (unknown) date) unknown) (unknown) (no (unknown) (unknown) Hepatitis C risk (units (unknown) date) evaluation: low unknown) risk (unknown) (no (unknown) (unknown) Her baby remains (units (unknown) date) active but she unknown) denies contractions, bleeding, leakage of fluid (unknown) (no (unknown) (unknown) History of (units (unk nown) date) Hepatitis B: No unknown) (unknown) (no (unknown) (unknown) History of (units (unk nown) date) Hepatitis C: No unknown) (unknown) (no (unknown) (unknown) History/Interim (units (unknown) date) Details unknown) (unknown) (no (unknown) (unknown) Hospital[facility] (units (u nknown) date) unknown) (unknown) (no (unknown) (unknown) [facility] (units (u nknown) date) Chorea, Denies unknown) Other inherited genetic or chromosomal disorder, (unknown) (no (unknown) (unknown) Hx # (units (u nknown) date) Pregnancies unknown) Elective abortions (unknown) (no (unknown) (unknown) Hx # Term (units (unkn own) date) Pregnancies unknown) Ectopic pregnancies (unknown) (no (unknown) (unknown) Hx of frequent (units (unknown) date) UTI's (no hx of unknown) pyelo); watch closely for UTI sx (unknown) (no (unknown) (unknown) (units (u nknown) date) Weight: 6# 9oz unknown) (unknown) (no (unknown) (unknown) Longest (units (unknown) date) Sleep: 5 hr unknown) (unknown) (no (unknown) (unknown) Infant Recent (units ( unknown) date) Weight: 9# 12oz unknown) (unknown) (no (unknown) (unknown) Infant will be (units (unknown) date) adopted?: no unknown) (unknown) (no (unknown) (unknown) Infant's Name: (units (unknown) date) Jamey unknown) (unknown) (no (unknown) (unknown) 's Sex: (units ( unknown) date) Male unknown) (unknown) (no (unknown) (unknown) Infection (units (unkn own) date) History unknown) (unknown) (no (unknown) (unknown) Infectious (units (unk nown) date) Disease Education unknown) (unknown) (no (unknown) (unknown) Infectious (units (unk nown) date) disease exposure: unknown) chicken pox immunity discussed, hepatitis risk (unknown) (no (unknown) (unknown) Initial US LOGAN (units (unknown) date) 10 days later unknown) than LOGAN by LMP (Irregular, uncertain date); LOGAN (unknown) (no (unknown) (unknown) Initial Weight: (units (unknown) date) 150 lb unknown) (unknown) (no (unknown) (unknown) Initials (units (unkno wn) date) unknown) (unknown) (no (unknown) (unknown) Intake (units (unkno wn) date) unknown) (unknown) (no (unknown) (unknown) Irregular menses (units (unknown) date) unknown) (unknown) (no (unknown) (unknown) LM (units (unkno wn) date) unknown) (unknown) (no (unknown) (unknown) Late to care, (units ( unknown) date) otherwise healthy unknown) (unknown) (no (unknown) (unknown) Left sided LBP, (units (unknown) date) non-radiating; unknown) referral to Dr. Bowers for OMT (unknown) (no (unknown) (unknown) Live with (units (unkn own) date) someone with TB unknown) or exposed to TB: No (unknown) (no (unknown) (unknown) Loc: [facility] (units (unkno wn) date) unknown) (unknown) (no (unknown) (unknown) Marital status: (units (unknown) date) unmarried,living unknown) together (unknown) (no (unknown) (unknown) Medical History (units (unknown) date) (Reviewed unknown) 09/24/21 @ 14:57 by Carlos Tejada RN) (unknown) (no (unknown) (unknown) N Yes no 138 36 (units (unknown) date) Vertex absent unknown) 95%/1-2/0 (unknown) (no (unknown) (unknown) N Yes no 148 27 (units (unknown) date) N/A absent 3 wks unknown) (unknown) (no (unknown) (unknown) N Yes no 149 32 (units (unknown) date) Vertex absent Flu unknown) shot giv (unknown) (no (unknown) (unknown) N Yes no 165 30 (units (unknown) date) Vertex absent 2wk unknown) (unknown) (no (unknown) (unknown) NF (units (unkno wn) date) unknown) (unknown) (no (unknown) (unknown) Nexplanon removed (units (unknown) date) 04/2021 and unknown) conceived on OC's; stopped with first missed period (unknown) (no (unknown) (unknown) No Known (units (unkno wn) date) Allergies Allergy unknown) (Verified 02/04/22 09:00) (unknown) (no (unknown) (unknown) Notes (units (unkno wn) date) unknown) (unknown) (no (unknown) (unknown) Number of Living (units (unknown) date) Children unknown) (unknown) (no (unknown) (unknown) Number of Weeks (units (unknown) date) Post : 6 unknown) (unknown) (no (unknown) (unknown) Number of (units (unkn own) date) fetuses:: Single unknown) (unknown) (no (unknown) (unknown) Nutrition and (units ( unknown) date) weight gain unknown) counseling: special diet: discussed (unknown) (no (unknown) (unknown) OB Office Visit (units (unknown) date) unknown) (unknown) (no (unknown) (unknown) OB Visit Log (units (u nknown) date) unknown) (unknown) (no (unknown) (unknown) On control (units (unknown) date) at conception?: unknown) Yes (stopped once she learned she was ) (unknown) (no (unknown) (unknown) Other Estimates (units (unknown) date) 02/04/22 LMP unknown) (Uncertain) 46w 1d (unknown) (no (unknown) (unknown) PFSH (units (unkno wn) date) unknown) (unknown) (no (unknown) (unknown) Para Spontaneous (units (unknown) date) abortions unknown) (unknown) (no (unknown) (unknown) Para: 1 (units (unkno wn) date) unknown) (unknown) (no (unknown) (unknown) Partner history (units (unknown) date) of STD: denies hx unknown) (unknown) (no (unknown) (unknown) Partner history (units (unknown) date) of genital unknown) herpes: No (unknown) (no (unknown) (unknown) Partner: Vel (units (unknown) date) [place] unknown) (unknown) (no (unknown) (unknown) Patient comes in (units (unknown) date) for routine OB unknown) visit. No headaches, scotomata, epigastric (unknown) (no (unknown) (unknown) Patient placed (units (unknown) date) at bed rest and unknown) no provided for her command. She denies (unknown) (no (unknown) (unknown) Patient treated (units (unknown) date) with 3 doses of unknown) IM penicillin for positive RPR (unknown) (no (unknown) (unknown) Patient's age 35 (units (unknown) date) years or older as unknown) of estimated date of delivery: No (unknown) (no (unknown) (unknown) Patient: (units (unkno wn) date) Franklyn [place]field unknown) MR#: [id number] (unknown) (no (unknown) (unknown) Street Department Dispatcher: (units ( unknown) date) TBD unknown) (unknown) (no (unknown) (unknown) Personal history (units (unknown) date) of STD: denies hx unknown) (unknown) (no (unknown) (unknown) Personal history (units (unknown) date) of genital unknown) herpes: No (unknown) (no (unknown) (unknown) Position Sitting (units (unknown) date) unknown) (unknown) (no (unknown) (unknown) Post (units (un known) date) unknown) (unknown) (no (unknown) (unknown) (units (unkn own) date) History unknown) (unknown) (no (unknown) (unknown) type:: (units (unknown) date) First unknown) (unknown) (no (unknown) (unknown) (units (unkno wn) date) Education unknown) (unknown) (no (unknown) (unknown) Initial (units (unknown) date) Assessment unknown) (unknown) (no (unknown) (unknown) (units (unkno wn) date) Specific unknown) Issues/Plans (unknown) (no (unknown) (unknown) (units (unkno wn) date) Testing: unknown) discussed (unknown) (no (unknown) (unknown) Visit (units (unknown) date) unknown) (unknown) (no (unknown) (unknown) (units (unkno wn) date) education packet: unknown) symptoms, Vitamins and iron, Diet and (unknown) (no (unknown) (unknown) Primary Care (units (u nknown) date) Provider: LAURA [place] unknown) Alejandro (unknown) (no (unknown) (unknown) Primary Ob (units (unk nown) date) Provider: unknown) Marcos Diaz (unknown) (no (unknown) (unknown) Prior (units (unkno wn) date) GBS-Infected unknown) child: No (unknown) (no (unknown) (unknown) Providers (units (unkn own) date) unknown) (unknown) (no (unknown) (unknown) RPR ordered and (units (unknown) date) pt will have unknown) drawn today. F/u 2 wks or as needed. 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 (unknown) (no (unknown) (unknown) She did not have (units (unknown) date) her RPR titer unknown) performed after her previous visit as ordered. (unknown) (no (unknown) (unknown) She does have a (units (unknown) date) lot of pelvic unknown) discomfort and advised to try to get a (unknown) (no (unknown) (unknown) She is doing (units (u nknown) date) well and she unknown) continues to regain her energy levels. She denies (unknown) (no (unknown) (unknown) She will however (units (unknown) date) have it performed unknown) today. Or she is having some left round (unknown) (no (unknown) (unknown) Signed By: (units (unk nown) date) unknown) (unknown) (no (unknown) (unknown) Smoking Status: (units (unknown) date) Never smoker unknown) (unknown) (no (unknown) (unknown) Social History (units (unknown) date) unknown) (unknown) (no (unknown) (unknown) Support (units (unkno wn) date) Person(s):: unknown) Vel (unknown) (no (unknown) (unknown) Surgical History (units (unknown) date) (Reviewed unknown) 09/24/21 @ 14:57 by Carlos Tejada RN) (unknown) (no (unknown) (unknown) Surrogate (units (unkn own) date) ?: no unknown) (unknown) (no (unknown) (unknown) Symptoms since (units (unknown) date) LMP: Reports unknown) amenorrhea, nausea, fatigue, breast tenderness, (unknown) (no (unknown) (unknown) TR Yes no 142 37 (units (unknown) date) Vertex absent GBS unknown) NEGATIV (unknown) (no (unknown) (unknown) TR Yes no 144 34 (units (unknown) date) Vertex absent 2 unknown) wks (unknown) (no (unknown) (unknown) TR Yes no 146 36 (units (unknown) date) Vertex absent 1 unknown) wk (unknown) (no (unknown) (unknown) Franklyn and (units (unk nown) date) Vel return unknown) today for her AVERY visit now 37+ 5 weeks (unknown) (no (unknown) (unknown) Franklyn and (units (unk nown) date) Vel return unknown) today for her AVERY visit now at 38+ 4 weeks (unknown) (no (unknown) (unknown) Franklyn and (units (unk nown) date) Vel returns unknown) today for her AVERY visit now at 36+ 4 weeks (unknown) (no (unknown) (unknown) Franklyn presents (units (unknown) date) today for her unknown) initial OB visit now at 19+ 4 weeks (unknown) (no (unknown) (unknown) Franklyn presents (units (unknown) date) today for routine unknown) OB visit at 32w3d. She reports good (unknown) (no (unknown) (unknown) Franklyn returns (units (unknown) date) today for her AVERY unknown) visit now at 23+ 4 weeks gestational age. (unknown) (no (unknown) (unknown) Franklyn returns (units (unknown) date) today for her AVERY unknown) visit now at 27+ 4 weeks gestational age. (unknown) (no (unknown) (unknown) Franklyn returns (units (unknown) date) today for her AVERY unknown) visit now at 34+ 4 weeks gestational age. (unknown) (no (unknown) (unknown) Teratogen (units (unkn own) date) Exposures since unknown) LMP/Conception: Denies prescription medications, (unknown) (no (unknown) (unknown) Testing (units (unkno wn) date) Education unknown) (unknown) (no (unknown) (unknown) Testing (units (unkno wn) date) education unknown) completed: group B strep and Spina bifida testing (unknown) (no (unknown) (unknown) This note may (units ( unknown) date) have been all or unknown) partially generated using voice recognition (unknown) (no (unknown) (unknown) Tobacco + (units (unkn own) date) Substance Use unknown) (unknown) (no (unknown) (unknown) Tobacco Status (units (unknown) date) unknown) (unknown) (no (unknown) (unknown) Type of (units (unkno wn) date) Delivery: unknown) (unknown) (no (unknown) (unknown) Type(s) of (units (unk nown) date) exercise: yoga unknown) (unknown) (no (unknown) (unknown) UProtein Movement (units (unknown) date) PreLabor FHR Fndl unknown) Ht Pres Edema Cerv Exam US/Comment Next Appt (unknown) (no (unknown) (unknown) VDRL titer (units (unk nown) date) remains pending. unknown) Repeat platelet count 2 drawn today. GBS obtained (unknown) (no (unknown) (unknown) Varicella/chicke (units (unknown) date) n pox status: unknown) unknown (unknown) (no (unknown) (unknown) Visit Date: (units (un known) date) 09/24/21 Last unknown) Updated by: Marcos Diaz MD (unknown) (no (unknown) (unknown) Visit Date: (units (un known) date) 10/22/21 Last unknown) Updated by: Marcos Diaz MD (unknown) (no (unknown) (unknown) Visit Date: (units (un known) date) 11/19/21 Last unknown) Updated by: Marcos Diaz MD (unknown) (no (unknown) (unknown) Visit Date: (units (un known) date) 12/11/21 Last unknown) Updated by: Divina Perez MD (unknown) (no (unknown) (unknown) Visit Date: (units (un known) date) 12/23/21 Last unknown) Updated by: Cindy Flores P.A-C (unknown) (no (unknown) (unknown) Visit Date: (units (un known) date) 01/07/22 Last unknown) Updated by: Marcos Diaz MD (unknown) (no (unknown) (unknown) Visit Date: (units (un known) date) 01/21/22 Last unknown) Updated by: Marcos Diaz MD (unknown) (no (unknown) (unknown) Visit Date: (units (un known) date) 01/29/22 Last unknown) Updated by: Marcos Diaz MD (unknown) (no (unknown) (unknown) Visit Date: (units (un known) date) 02/04/22 Last unknown) Updated by: Marcos Diaz MD (unknown) (no (unknown) (unknown) Visit Reasons: 6 (units (unknown) date) week PP, F/U RPR unknown) titer (unknown) (no (unknown) (unknown) Vitals (units (unkno wn) date) unknown) (unknown) (no (unknown) (unknown) WG (units (unkno wn) date) unknown) (unknown) (no (unknown) (unknown) Weight 175 lb (units ( unknown) date) unknown) (unknown) (no (unknown) (unknown) [place] teeth (units (u nknown) date) extracted unknown) (unknown) (no (unknown) (unknown) Yes no 144 19 (units ( unknown) date) N/A absent 4 wks unknown) (unknown) (no (unknown) (unknown) Yes no 156 23 (units ( unknown) date) N/A absent 4 wks unknown) (unknown) (no (unknown) (unknown) Zika virus (units (unk nown) date) exposure: No unknown) (unknown) (no (unknown) (unknown) alcohol intake: (units (unknown) date) former unknown) (occasional, only before ) (unknown) (no (unknown) (unknown) anatomic survey. (units (unknown) date) GBS culture at unknown) next visit discussed. PTL precautions reviewed (unknown) (no (unknown) (unknown) anatomy scan (units (u nknown) date) following her unknown) next visit in 4 weeks. (unknown) (no (unknown) (unknown) and follow-up (units ( unknown) date) will be in 2 unknown) weeks or as needed. (unknown) (no (unknown) (unknown) and submitted (units ( unknown) date) today. Labor unknown) precautions reviewed and follow-up will be in 1 week (unknown) (no (unknown) (unknown) and vitamin-C (units ( unknown) date) daily. 1 hour GDM unknown) screen and H+H also ordered. PTL precautions (unknown) (no (unknown) (unknown) anyone in either (units (unknown) date) family with: unknown) (unknown) (no (unknown) (unknown) baby's father (units ( unknown) date) had a child with unknown) defects not listed above and Denies Other (unknown) (no (unknown) (unknown) by bedside (units (unk nown) date) ultrasound. She unknown) denies contractions, bleeding, leakage of fluid per (unknown) (no (unknown) (unknown) caffeine: Yes (1 (units (unknown) date) cup/day) unknown) (unknown) (no (unknown) (unknown) carbon monox (units (u nknown) date) detector in home: unknown) Yes (unknown) (no (unknown) (unknown) continue however (units (unknown) date) and again unknown) recommended that she be seen for OMT by Dr. Bowers; (unknown) (no (unknown) (unknown) contractions and (units (unknown) date) occasional round unknown) ligament pains. Her low back pain does (unknown) (no (unknown) (unknown) contractions, (units ( unknown) date) bleeding, leakage unknown) of fluid per vagina, or change in discharge but (unknown) (no (unknown) (unknown) contractions, (units ( unknown) date) bleeding, leakage unknown) of fluid per vagina, or change in discharge. (unknown) (no (unknown) (unknown) current (units (unkno wn) date) occupational unknown) exposures/hazards : No (unknown) (no (unknown) (unknown) daily servings (units (unknown) date) fruits/ve-4 unknown) (unknown) (no (unknown) (unknown) described, visit (units (unknown) date) schedule unknown) reviewed, ultrasounds policy reviewed, coverage 24 (unknown) (no (unknown) (unknown) discomfort, (units (un known) date) advised belly unknown) band. No other concerns. Flu shot given today. F/u (unknown) (no (unknown) (unknown) discussed, (units (unk nown) date) tuberculosis unknown) exposure discussed, CMV discussed, Toxoplasmosis (unknown) (no (unknown) (unknown) disorders, (units (unk nown) date) Denies Cystic unknown) Fibrosis, Denies Mental Retardation/Autis m, Denies (unknown) (no (unknown) (unknown) do you feel safe (units (unknown) date) at home: Yes unknown) (unknown) (no (unknown) (unknown) during the past (units (unknown) date) year weight has: unknown) remained stable (unknown) (no (unknown) (unknown) education level: (units (unknown) date) college unknown) (Associate's degree) (unknown) (no (unknown) (unknown) en 2wk (units (unkno wn) date) unknown) (unknown) (no (unknown) (unknown) evening of (units (unk nown) date) 02/10/2022 and unknown) anticipate delivery 02/11/2022. Labor precautions (unknown) (no (unknown) (unknown) movement (units (unknown) date) and denies VB, unknown) LOF, cramping and contractions. Mild pelvic bone (unknown) (no (unknown) (unknown) movement, (units (unknown) date) tone, breathing. unknown) Vertex infant 50th percentile, LYNDSAY 9. Routine (unknown) (no (unknown) (unknown) fire (units (unkno wn) date) extinguisher in unknown) home: Yes (unknown) (no (unknown) (unknown) firearms in (units (un known) date) home: No unknown) (unknown) (no (unknown) (unknown) fluid per (units (unkn own) date) vagina, or change unknown) in discharge but her baby remains active. Patient (unknown) (no (unknown) (unknown) frequency: 1-2 (units (unknown) date) times per week unknown) (unknown) (no (unknown) (unknown) gestational age (units (unknown) date) by corrected unknown) ultrasound based LOGAN. Her nausea and vomiting (unknown) (no (unknown) (unknown) gestational age. (units (unknown) date) GBS collected at unknown) her last visit is negative. Vertex confirmed (unknown) (no (unknown) (unknown) gestational age. (units (unknown) date) Patient is not unknown) having contractions but is having significant (unknown) (no (unknown) (unknown) gestational age. (units (unknown) date) She is doing well unknown) and is having no ongoing issues. She denies (unknown) (no (unknown) (unknown) have occurred. (units (unknown) date) If there are any unknown) questions, please contact the Medical Records (unknown) (no (unknown) (unknown) having (units (unkno wn) date) significant unknown) fatigue issues. She is been having some non radicular left (unknown) (no (unknown) (unknown) her baby does (units ( unknown) date) remain active. unknown) Follow-up OB ultrasound ordered to complete (unknown) (no (unknown) (unknown) her baby is (units (un known) date) increasingly unknown) active. Size equals dates for adjusted LOGAN and follow (unknown) (no (unknown) (unknown) hours a day and (units (unknown) date) participation of unknown) father in care and office visits (unknown) (no (unknown) (unknown) household (units (unkn own) date) members: unknown) significant other (unknown) (no (unknown) (unknown) housing: (units (unkno wn) date) apartment unknown) (unknown) (no (unknown) (unknown) jw (units (unkno wn) date) unknown) (unknown) (no (unknown) (unknown) ligament pain (units ( unknown) date) radiating down unknown) into her left groin with movement and activities (unknown) (no (unknown) (unknown) lives (units (unkno wn) date) independently: unknown) Yes (unknown) (no (unknown) (unknown) marital status: (units (unknown) date) unmarried,living unknown) together (unknown) (no (unknown) (unknown) may occur. 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 Please (unknown) (no (unknown) (unknown) or as needed. (units ( unknown) date) unknown) (unknown) (no (unknown) (unknown) pain. Good (units (unknown) date) movement. No unknown) vaginal bleeding or discharge. No contractions. (unknown) (no (unknown) (unknown) particularly (units (u nknown) date) when she is unknown) standing or sitting for prolonged periods of time. (unknown) (no (unknown) (unknown) per vagina, or (units (unknown) date) change in unknown) discharge. She is having occasional [employer] [place] (unknown) (no (unknown) (unknown) pets and (units (unkno wn) date) animals: No unknown) (unknown) (no (unknown) (unknown) precautions (units (un known) date) reviewed and unknown) follow-up will be in 1 week or as needed. (unknown) (no (unknown) (unknown) precautions (units (un known) date) reviewed with the unknown) patient. (unknown) (no (unknown) (unknown) precautions, (units (u nknown) date) Listeriosis unknown) prevention and Rubella Immunization (unknown) (no (unknown) (unknown) care (units ( unknown) date) reviewed at unknown) length. Will plan to order follow-up growth and (unknown) (no (unknown) (unknown) labs (units ( unknown) date) and quad screen unknown) drawn today. Course and conduct of routine (unknown) (no (unknown) (unknown) read the note (units ( unknown) date) carefully and unknown) recognize, using context, where these substitutions (unknown) (no (unknown) (unknown) referral placed. (units (unknown) date) PTL precautions unknown) reviewed and follow-up will be in 3 weeks. (unknown) (no (unknown) (unknown) requests (units (unkno wn) date) induction prior unknown) to 40 weeks and will admit for cervical ripening on the (unknown) (no (unknown) (unknown) reviewed and (units (u nknown) date) follow-up will be unknown) in 4 weeks or as needed. (unknown) (no (unknown) (unknown) reviewed. (units (unkn own) date) unknown) (unknown) (no (unknown) (unknown) seatbelt use: (units ( unknown) date) always unknown) (unknown) (no (unknown) (unknown) second hand (units (un known) date) exposure: No unknown) (unknown) (no (unknown) (unknown) shooting pains (units (unknown) date) down the inner unknown) thighs. She also denies bleeding, leakage of (unknown) (no (unknown) (unknown) sided lower back (units (unknown) date) pain and will ask unknown) Dr. Bowers to evaluate for OMT. Initial (unknown) (no (unknown) (unknown) software. (units (unkn own) date) Although every unknown) effort is made to edit content, planetarium technician errors (unknown) (no (unknown) (unknown) special phyllis (units ( unknown) date) needs: No unknown) (unknown) (no (unknown) (unknown) substance use (units ( unknown) date) type: does not unknown) use (unknown) (no (unknown) (unknown) support belt. (units ( unknown) date) Brief ultrasound unknown) was performed for patient reassurance. Good (unknown) (no (unknown) (unknown) travel history: (units (unknown) date) recent ([place] unknown) ([place] (unknown) (no (unknown) (unknown) up ultrasound (units ( unknown) date) ordered to unknown) complete anatomic survey. She continues to take iron (unknown) (no (unknown) (unknown) urinary (units (unkno wn) date) frequency, unknown) irritability, bloating and other (constipated) (unknown) (no (unknown) (unknown) vagina, or (units (unk nown) date) change in unknown) discharge but her baby remains active. VDRL titer from (unknown) (no (unknown) (unknown) water heater (units (u nknown) date) temp set < 120 unknown) deg: No (will check and adjust) (unknown) (no (unknown) (unknown) weight gain, (units (u nknown) date) Fish and mercury unknown) intake, Caffeine use, Exercise and activity, (unknown) (no (unknown) (unknown) well-balanced (units ( unknown) date) diet: daily or unknown) most days (unknown) (no (unknown) (unknown) which she (units (unkn own) date) experienced unknown) earlier in the has resolved. She is however (unknown) (no (unknown) (unknown) work/environment (units (unknown) date) al/hazards, unknown) Sexual activity, X-ray exposure, Medication use, (unknown) (no (unknown) (unknown) working smoke (units ( unknown) date) detector in home: unknown) Yes Result panel 7 (unknown) (no date) (unknown) (unknown) 1:8 (units (unkn own) unknown) (unknown) (no date) (unknown) (unknown) 1:8 (units 37810 -2 unknown) (unknown) (no date) (unknown) (unknown) Note: (units 19615 -5 unknown) (unknown) (no date) (unknown) (unknown) Note: (units (unkn own) unknown) (unknown) (no date) (unknown) (unknown) Reactive (units (unkn own) unknown) (unknown) (no date) (unknown) (unknown) Reactive (units 75960 -0 unknown) Result panel 8 (unknown) (no (unknown) (unknown) (no value) (units (unk nown) date) unknown) (unknown) (no (unknown) (unknown) (+10 lb 2 oz) (units ( unknown) date) 110/70 unknown) (unknown) (no (unknown) (unknown) (+19 lb 7 oz) (units ( unknown) date) 120/70 unknown) (unknown) (no (unknown) (unknown) (+25 lb) 126/60 (units (unknown) date) N unknown) (unknown) (no (unknown) (unknown) (+25 lb) 126/84 (units (unknown) date) unknown) (unknown) (no (unknown) (unknown) (+25 lb) 134/60 (units (unknown) date) unknown) (unknown) (no (unknown) (unknown) (+35 lb) 118/72 (units (unknown) date) N unknown) (unknown) (no (unknown) (unknown) (+36 lb) 116/74 (units (unknown) date) N unknown) (unknown) (no (unknown) (unknown) (+40 lb) 112/72 (units (unknown) date) N unknown) (unknown) (no (unknown) (unknown) (+44 lb) 112/72 (units (unknown) date) N unknown) (unknown) (no (unknown) (unknown) (+45 lb) 112/66 (units (unknown) date) N unknown) (unknown) (no (unknown) (unknown) (1) Syphilis (units (u nknown) date) (acquired): unknown) (unknown) (no (unknown) (unknown) (2) Encounter (units ( unknown) date) for unknown) care after hospital delivery: (unknown) (no (unknown) (unknown) Genetic (units (unkn own) date) Screening/Teratol unknown) ogy Counseling - Includes patient, baby's father, or (unknown) (no (unknown) (unknown) -?-?-?-?-?-?-?-? (units (unknown) date) -?-?-?-? unknown) (unknown) (no (unknown) (unknown) [id number] (units (unkno wn) date) unknown) (unknown) (no (unknown) (unknown) 03/19/22 1747 (units ( unknown) date) unknown) (unknown) (no (unknown) (unknown) 03/19/22 (units (unkno wn) date) unknown) (unknown) (no (unknown) (unknown) 09/24/21 (units (unkno wn) date) unknown) (unknown) (no (unknown) (unknown) 10/22/21 (units (unkno wn) date) unknown) (unknown) (no (unknown) (unknown) 11/19/21 (units (unkno wn) date) unknown) (unknown) (no (unknown) (unknown) 12/11/21 (units (unkno wn) date) unknown) (unknown) (no (unknown) (unknown) 12/23/21 (units (unkno wn) date) unknown) (unknown) (no (unknown) (unknown) 01/07/22 (units (unkno wn) date) unknown) (unknown) (no (unknown) (unknown) 01/21/22 (units (unkno wn) date) unknown) (unknown) (no (unknown) (unknown) 01/29/22 (units (unkno wn) date) unknown) (unknown) (no (unknown) (unknown) 01/07 shows a (units (u nknown) date) decline to 1:8 unknown) from 1:16 at the time of initial diagnosis. Labor (unknown) (no (unknown) (unknown) 02/04/22 (units (unkno wn) date) unknown) (unknown) (no (unknown) (unknown) 02/14/2022 by [place] (units (unknown) date) unknown) (unknown) (no (unknown) (unknown) 122/72 N (units (unkno wn) date) unknown) (unknown) (no (unknown) (unknown) 16:29 (units (unkno wn) date) unknown) (unknown) (no (unknown) (unknown) 19w 4d 160 lb 2 (units (unknown) date) oz unknown) (unknown) (no (unknown) (unknown) 23w 4d 169 lb 7 (units (unknown) date) oz unknown) (unknown) (no (unknown) (unknown) 27w 4d 175 lb (units ( unknown) date) unknown) (unknown) (no (unknown) (unknown) 30w 5d 175 lb (units ( unknown) date) unknown) (unknown) (no (unknown) (unknown) 32w 3d 185 lb (units ( unknown) date) unknown) (unknown) (no (unknown) (unknown) 34w 4d 186 lb (units ( unknown) date) unknown) (unknown) (no (unknown) (unknown) 36w 4d 190 lb (units ( unknown) date) unknown) (unknown) (no (unknown) (unknown) 37w 5d 194 lb (units ( unknown) date) unknown) (unknown) (no (unknown) (unknown) 38w 4d 195 lb (units ( unknown) date) unknown) (unknown) (no (unknown) (unknown) 44w 5d 175 lb (units ( unknown) date) unknown) (unknown) (no (unknown) (unknown) 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 First positive test sometime in (unknown) (no (unknown) (unknown) Age/Sex: 21 / F (units (unknown) date) Date of Service: unknown) (unknown) (no (unknown) (unknown) Allergies (units (unkn own) date) unknown) (unknown) (no (unknown) (unknown) M[place]IN H[place]ower (units ( unknown) date) [id number] unknown) (unknown) (no (unknown) (unknown) Aneuploidy (units (unk nown) date) Screening unknown) Offered: Accepted (unknown) (no (unknown) (unknown) Anticipate (units (unknown) date) [facility] unknown) (unknown) (no (unknown) (unknown) Anticipated (units (un known) date) course of unknown) care: discussed (unknown) (no (unknown) (unknown) May, but never (units (unknown) date) sought care for unknown) until last week. (unknown) (no (unknown) (unknown) Assessment and (units (unknown) date) Plan unknown) (unknown) (no (unknown) (unknown) Attending Dr: (units ( unknown) date) Marcos Diaz unknown) (unknown) (no (unknown) (unknown) BMI 26.6 (units (unkno wn) date) unknown) (unknown) (no (unknown) (unknown) BP 126/84 (units (unkn own) date) unknown) (unknown) (no (unknown) (unknown) (units (unkno wn) date) Plan/Preferences unknown) (unknown) (no (unknown) (unknown) Planning (units (unknown) date) unknown) (unknown) (no (unknown) (unknown) Bladder: Reports (units (unknown) date) emptying unknown) (unknown) (no (unknown) (unknown) Bleeding: Yes (units ( unknown) date) (Currently unknown) experiencing her 1st post delivery menses) (unknown) (no (unknown) (unknown) Blood Pressure (units (unknown) date) Location Lt unknown) brachial (unknown) (no (unknown) (unknown) Blood (units (unkno wn) date) transfusions?: unknown) yes (Never had but would accept) (unknown) (no (unknown) (unknown) Blues/Depression (units (unknown) date) /Anxiety: No unknown) (unknown) (no (unknown) (unknown) Bowel: Reports (units (unknown) date) daily unknown) (unknown) (no (unknown) (unknown) Childbirth (units (unk nown) date) Classes: unknown) discussed (unknown) (no (unknown) (unknown) Current Estimate (units (unknown) date) 02/14/22 unknown) Ultrasound #1 44w 5d (unknown) (no (unknown) (unknown) Current (units (unkno wn) date) History unknown) (unknown) (no (unknown) (unknown) : 2000 (units (unknown) date) Acct:[id number] unknown) (unknown) (no (unknown) (unknown) Date (units (unkno wn) date) unknown) (unknown) (no (unknown) (unknown) Delivery Date: (units (unknown) date) 02/07/22 unknown) (unknown) (no (unknown) (unknown) Denies Congenital (units (unknown) date) Heart Defect, unknown) Denies Down Syndrome, Denies Muscular Dystrophy, (unknown) (no (unknown) (unknown) Denies Maternal (units (unknown) date) Metabolic unknown) Disorder (EG,TYPE 1 Diabetes, PKU), Denies Patient or (unknown) (no (unknown) (unknown) Denies Neural (units ( unknown) date) Tube Defect unknown) (Meningomyelocele , Spina Bifida, or Anencephaly), (unknown) (no (unknown) (unknown) Denies Sickle (units ( unknown) date) Cell Disease or unknown) Trait (), Denies Hemophilia or other blood (unknown) (no (unknown) (unknown) Denies Woody-Sachs (units (unknown) date) (Ashkenazi unknown) Confucianism, [facility], [place]), Denies Jose (unknown) (no (unknown) (unknown) Denies other (units (u nknown) date) unknown) (unknown) (no (unknown) (unknown) Denies over the (units (unknown) date) counter unknown) medications, Denies alcohol, Denies illicit drugs and (unknown) (no (unknown) (unknown) Depression: (units (un known) date) discussed unknown) (unknown) (no (unknown) (unknown) Dept at (units (unkno wn) date) . 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), (unknown) (no (unknown) (unknown) Documented By: (units (unknown) date) Marcos Diaz unknown) 03/19/22 1623 (unknown) (no (unknown) (unknown) E 1 wk (units (unkno wn) date) unknown) (unknown) (no (unknown) (unknown) LOGAN Calculator (units (unknown) date) unknown) (unknown) (no (unknown) (unknown) EGA Weight BP (units ( unknown) date) UGlucose unknown) (unknown) (no (unknown) (unknown) Estimated (units (unkn own) date) Delivery Date unknown) Method Current (unknown) (no (unknown) (unknown) Expected (units (unkno wn) date) Delivery unknown) Route/Plan (unknown) (no (unknown) (unknown) Family History (units (unknown) date) (Reviewed unknown) 09/24/21 @ 14:57 by Carlos Tejada RN) (unknown) (no (unknown) (unknown) Father of Baby: (units (unknown) date) same unknown) (unknown) (no (unknown) (unknown) Feeding: bottle (units (unknown) date) unknown) (unknown) (no (unknown) (unknown) [facility]) (unknown) (no (unknown) (unknown) First Trimester (units (unknown) date) Education unknown) Checklist (unknown) (no (unknown) (unknown) (units (unkno wn) date) unknown) (unknown) (no (unknown) (unknown) Genetic (units (unkno wn) date) Screening + unknown) Counseling (unknown) (no (unknown) (unknown) Genetic (units (unkno wn) date) Screening unknown) (unknown) (no (unknown) (unknown) Grandmother (units (un known) date) Bladder cancer unknown) (unknown) (no (unknown) (unknown) Grandmother (units (un known) date) Diabetes mellitus unknown) (unknown) (no (unknown) (unknown) 1 (units (unkn own) date) Multiple births unknown) (unknown) (no (unknown) (unknown) : 1 (units (unk nown) date) unknown) (unknown) (no (unknown) (unknown) HIV risk (units (unkno wn) date) evaluation: low unknown) risk (unknown) (no (unknown) (unknown) Health Center (units ( unknown) date) Education unknown) (unknown) (no (unknown) (unknown) Health center (units ( unknown) date) information: unknown) nature of practice discussed, personnel (unknown) (no (unknown) (unknown) Height 5 ft 8 in (units (unknown) date) unknown) (unknown) (no (unknown) (unknown) Hepatitis C risk (units (unknown) date) evaluation: low unknown) risk (unknown) (no (unknown) (unknown) Her baby remains (units (unknown) date) active but she unknown) denies contractions, bleeding, leakage of fluid (unknown) (no (unknown) (unknown) History of (units (unk nown) date) Hepatitis B: No unknown) (unknown) (no (unknown) (unknown) History of (units (unk nown) date) Hepatitis C: No unknown) (unknown) (no (unknown) (unknown) History/Interim (units (unknown) date) Details unknown) (unknown) (no (unknown) (unknown) Hospital on (units (un known) date) 02/07/2022. Her unknown) delivery was uneventful and she did not sustain any (unknown) (no (unknown) (unknown) Hospital[facility] (units (u nknown) date) unknown) (unknown) (no (unknown) (unknown) [facility] (units (u nknown) date) Chorea, Denies unknown) Other inherited genetic or chromosomal disorder, (unknown) (no (unknown) (unknown) Hx # (units (u nknown) date) Pregnancies unknown) Elective abortions (unknown) (no (unknown) (unknown) Hx # Term (units (unkn own) date) Pregnancies unknown) Ectopic pregnancies (unknown) (no (unknown) (unknown) Hx of frequent (units (unknown) date) UTI's (no hx of unknown) pyelo); watch closely for UTI sx (unknown) (no (unknown) (unknown) (units (u nknown) date) Weight: 6# 9oz unknown) (unknown) (no (unknown) (unknown) Longest (units (unknown) date) Sleep: 5 hr unknown) (unknown) (no (unknown) (unknown) Infant Recent (units ( unknown) date) Weight: 9# 12oz unknown) (unknown) (no (unknown) (unknown) Infant will be (units (unknown) date) adopted?: no unknown) (unknown) (no (unknown) (unknown) Infant's Name: (units (unknown) date) Jamey unknown) (unknown) (no (unknown) (unknown) Infant's Sex: (units ( unknown) date) Male unknown) (unknown) (no (unknown) (unknown) Infection (units (unkn own) date) History unknown) (unknown) (no (unknown) (unknown) Infectious (units (unk nown) date) Disease Education unknown) (unknown) (no (unknown) (unknown) Infectious (units (unk nown) date) disease exposure: unknown) chicken pox immunity discussed, hepatitis risk (unknown) (no (unknown) (unknown) Initial [place] LOGAN (units (unknown) date) 10 days later unknown) than LOGAN by LMP (Irregular, uncertain date); LOGAN (unknown) (no (unknown) (unknown) Initial Weight: (units (unknown) date) 150 lb unknown) (unknown) (no (unknown) (unknown) Initials (units (unkno wn) date) unknown) (unknown) (no (unknown) (unknown) Intake (units (unkno wn) date) unknown) (unknown) (no (unknown) (unknown) [place]: (units (u nknown) date) Reports not unknown) resumed (unknown) (no (unknown) (unknown) Interim (units ( unknown) date) control method: unknown) Reports none (unknown) (no (unknown) (unknown) Irregular menses (units (unknown) date) unknown) (unknown) (no (unknown) (unknown) LM (units (unkno wn) date) unknown) (unknown) (no (unknown) (unknown) Late to care, (units ( unknown) date) otherwise healthy unknown) (unknown) (no (unknown) (unknown) Left sided LBP, (units (unknown) date) non-radiating; unknown) referral to Dr. Bowers for OMT (unknown) (no (unknown) (unknown) Live with (units (unkn own) date) someone with TB unknown) or exposed to TB: No (unknown) (no (unknown) (unknown) Loc: [facility] (units (unkno wn) date) unknown) (unknown) (no (unknown) (unknown) Marital status: (units (unknown) date) unmarried,living unknown) together (unknown) (no (unknown) (unknown) Medical History (units (unknown) date) (Reviewed unknown) 09/24/21 @ 14:57 by Carlos Tejada RN) (unknown) (no (unknown) (unknown) N Yes no 138 36 (units (unknown) date) Vertex absent unknown) 95%/1-2/0 (unknown) (no (unknown) (unknown) N Yes no 148 27 (units (unknown) date) N/A absent 3 wks unknown) (unknown) (no (unknown) (unknown) N Yes no 149 32 (units (unknown) date) Vertex absent Flu unknown) shot giv (unknown) (no (unknown) (unknown) N Yes no 165 30 (units (unknown) date) Vertex absent 2wk unknown) (unknown) (no (unknown) (unknown) NF (units (unkno wn) date) unknown) (unknown) (no (unknown) (unknown) Nexplanon removed (units (unknown) date) 04/2021 and unknown) conceived on OC's; stopped with first missed period (unknown) (no (unknown) (unknown) No Known (units (unkno wn) date) Allergies Allergy unknown) (Verified 02/04/22 09:00) (unknown) (no (unknown) (unknown) Notes (units (unkno wn) date) unknown) (unknown) (no (unknown) (unknown) Number of Living (units (unknown) date) Children unknown) (unknown) (no (unknown) (unknown) Number of Weeks (units (unknown) date) Post : 6 unknown) (unknown) (no (unknown) (unknown) Number of (units (unkn own) date) fetuses:: Single unknown) (unknown) (no (unknown) (unknown) Nutrition and (units ( unknown) date) weight gain unknown) counseling: special diet: discussed (unknown) (no (unknown) (unknown) OB Office Visit (units (unknown) date) unknown) (unknown) (no (unknown) (unknown) OB Visit Log (units (u nknown) date) unknown) (unknown) (no (unknown) (unknown) On control (units (unknown) date) at conception?: unknown) Yes (stopped once she learned she was ) (unknown) (no (unknown) (unknown) Orders (units (unkno wn) date) unknown) (unknown) (no (unknown) (unknown) Orders: (units (unkno wn) date) unknown) (unknown) (no (unknown) (unknown) Other Estimates (units (unknown) date) 02/04/22 LMP unknown) (Uncertain) 46w 1d (unknown) (no (unknown) (unknown) PFSH (units (unkno wn) date) unknown) (unknown) (no (unknown) (unknown) Pain Control: (units ( unknown) date) Reports unknown) Controlled (unknown) (no (unknown) (unknown) Pap on-base (units (un known) date) later this year. unknown) She has however due for a follow-up RPR titer. (unknown) (no (unknown) (unknown) Para 1 (units (unkno wn) date) Spontaneous unknown) abortions (unknown) (no (unknown) (unknown) Para: 1 (units (unkno wn) date) unknown) (unknown) (no (unknown) (unknown) Partner history (units (unknown) date) of STD: denies hx unknown) (unknown) (no (unknown) (unknown) Partner history (units (unknown) date) of genital unknown) herpes: No (unknown) (no (unknown) (unknown) Partner: Vel (units (unknown) date) [place] unknown) (unknown) (no (unknown) (unknown) Patient comes in (units (unknown) date) for routine OB unknown) visit. No headaches, scotomata, epigastric (unknown) (no (unknown) (unknown) Patient placed (units (unknown) date) at bed rest and unknown) no provided for her command. She denies (unknown) (no (unknown) (unknown) Patient treated (units (unknown) date) with 3 doses of unknown) IM penicillin for positive RPR (unknown) (no (unknown) (unknown) Patient will (units (u nknown) date) follow-up for her unknown) Pap and contraceptive needs on base. (unknown) (no (unknown) (unknown) Patient's age 35 (units (unknown) date) years or older as unknown) of estimated date of delivery: No (unknown) (no (unknown) (unknown) Patient: (units (unkno wn) date) Mayfield,Franklyn unknown) MR#: [id number] (unknown) (no (unknown) (unknown) Street Department Dispatcher: (units ( unknown) date) TBD unknown) (unknown) (no (unknown) (unknown) Personal history (units (unknown) date) of STD: denies hx unknown) (unknown) (no (unknown) (unknown) Personal history (units (unknown) date) of genital unknown) herpes: No (unknown) (no (unknown) (unknown) Plan (units (unkno wn) date) unknown) (unknown) (no (unknown) (unknown) Position Sitting (units (unknown) date) unknown) (unknown) (no (unknown) (unknown) Post (units (un known) date) unknown) (unknown) (no (unknown) (unknown) (units (unkn own) date) History unknown) (unknown) (no (unknown) (unknown) type:: (units (unknown) date) First unknown) (unknown) (no (unknown) (unknown) (units (unkno wn) date) Education unknown) (unknown) (no (unknown) (unknown) Initial (units (unknown) date) Assessment unknown) (unknown) (no (unknown) (unknown) (units (unkno wn) date) Specific unknown) Issues/Plans (unknown) (no (unknown) (unknown) (units (unkno wn) date) Testing: unknown) discussed (unknown) (no (unknown) (unknown) Visit (units (unknown) date) unknown) (unknown) (no (unknown) (unknown) (units (unkno wn) date) education packet: unknown) symptoms, Vitamins and iron, Diet and (unknown) (no (unknown) (unknown) Primary Care (units (u nknown) date) Provider: LAURA Langston unknown) Alejandro (unknown) (no (unknown) (unknown) Primary Ob (units (unk nown) date) Provider: unknown) Marcos Diaz (unknown) (no (unknown) (unknown) Prior (units (unkno wn) date) GBS-Infected unknown) child: No (unknown) (no (unknown) (unknown) Problem-specific (units (unknown) date) ROS positives unknown) included with the HPI (unknown) (no (unknown) (unknown) Providers (units (unkn own) date) unknown) (unknown) (no (unknown) (unknown) ROS (units (unkno wn) date) unknown) (unknown) (no (unknown) (unknown) RPR W Reflex to (units (unknown) date) Titer Today A53.9 unknown) - Syphilis, unspecified (unknown) (no (unknown) (unknown) RPR ordered and (units (unknown) date) pt will have unknown) drawn today. F/u 2 wks or as needed. (unknown) (no (unknown) (unknown) Rash or viral (units ( unknown) date) illness since unknown) last menstrual period: No (unknown) (no (unknown) (unknown) Reason For Visit (units (unknown) date) unknown) (unknown) (no (unknown) (unknown) Recent travel (units ( unknown) date) outside of unknown) country?: Yes (unknown) (no (unknown) (unknown) Recurrent UTI (units ( unknown) date) unknown) (unknown) (no (unknown) (unknown) Recurrent (units (unkn own) date) loss or unknown) a stillbirth: No (unknown) (no (unknown) (unknown) Repeat RPR (units (unk nown) date) titer. Patient be unknown) notified of results when available. 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 (unknown) (no (unknown) (unknown) She did not have (units (unknown) date) her RPR titer unknown) performed after her previous visit as ordered. (unknown) (no (unknown) (unknown) She does have a (units (unknown) date) lot of pelvic unknown) discomfort and advised to try to get a (unknown) (no (unknown) (unknown) She is doing (units (u nknown) date) well and she unknown) continues to regain her energy levels. She denies (unknown) (no (unknown) (unknown) She will however (units (unknown) date) have it performed unknown) today. Or she is having some left round (unknown) (no (unknown) (unknown) Signed By: (units (unk nown) date) <Electronically unknown) signed by Marcos Diaz MD> (unknown) (no (unknown) (unknown) Signed (units (unkno wn) date) unknown) (unknown) (no (unknown) (unknown) Smoking Status: (units (unknown) date) Never smoker unknown) (unknown) (no (unknown) (unknown) Social History (units (unknown) date) unknown) (unknown) (no (unknown) (unknown) Status: Acute (units ( unknown) date) unknown) (unknown) (no (unknown) (unknown) Support (units (unkno wn) date) Person(s):: unknown) Vel (unknown) (no (unknown) (unknown) Surgical History (units (unknown) date) (Reviewed unknown) 09/24/21 @ 14:57 by Carlos Tejada RN) (unknown) (no (unknown) (unknown) Surrogate (units (unkn own) date) ?: no unknown) (unknown) (no (unknown) (unknown) Symptoms since (units (unknown) date) LMP: Reports unknown) amenorrhea, nausea, fatigue, breast tenderness, (unknown) (no (unknown) (unknown) TR Yes no 142 37 (units (unknown) date) Vertex absent GBS unknown) NEGATIV (unknown) (no (unknown) (unknown) TR Yes no 144 34 (units (unknown) date) Vertex absent 2 unknown) wks (unknown) (no (unknown) (unknown) TR Yes no 146 36 (units (unknown) date) Vertex absent 1 unknown) wk (unknown) (no (unknown) (unknown) Franklyn and (units (unk nown) date) Vel return unknown) today for her AVERY visit now 37+ 5 weeks (unknown) (no (unknown) (unknown) Franklyn and (units (unk nown) date) Vel return unknown) today for her AVERY visit now at 38+ 4 weeks (unknown) (no (unknown) (unknown) Franklyn and (units (unk nown) date) Vel returns unknown) today for her AVERY visit now at 36+ 4 weeks (unknown) (no (unknown) (unknown) Franklny presents (units (unknown) date) today for her unknown) initial OB visit now at 19+ 4 weeks (unknown) (no (unknown) (unknown) Franklyn presents (units (unknown) date) today for routine unknown) OB visit at 32w3d. She reports good (unknown) (no (unknown) (unknown) Franklyn returns (units (unknown) date) today following unknown) spontaneous vaginal at would be General (unknown) (no (unknown) (unknown) Franklyn returns (units (unknown) date) today for her AVERY unknown) visit now at 23+ 4 weeks gestational age. (unknown) (no (unknown) (unknown) Franklyn returns (units (unknown) date) today for her AVERY unknown) visit now at 27+ 4 weeks gestational age. (unknown) (no (unknown) (unknown) Franklyn returns (units (unknown) date) today for her AVERY unknown) visit now at 34+ 4 weeks gestational age. (unknown) (no (unknown) (unknown) Teratogen (units (unkn own) date) Exposures since unknown) LMP/Conception: Denies prescription medications, (unknown) (no (unknown) (unknown) Testing (units (unkno wn) date) Education unknown) (unknown) (no (unknown) (unknown) Testing (units (unkno wn) date) education unknown) completed: group B strep and Spina bifida testing (unknown) (no (unknown) (unknown) This note may (units ( unknown) date) have been all or unknown) partially generated using voice recognition (unknown) (no (unknown) (unknown) Tobacco + (units (unkn own) date) Substance Use unknown) (unknown) (no (unknown) (unknown) Tobacco Status (units (unknown) date) unknown) (unknown) (no (unknown) (unknown) Type of (units (unkno wn) date) Delivery: unknown) (unknown) (no (unknown) (unknown) Type(s) of (units (unk nown) date) exercise: yoga unknown) (unknown) (no (unknown) (unknown) UProtein Movement (units (unknown) date) PreLabor FHR Fndl unknown) Ht Pres Edema Cerv Exam US/Comment Next Appt (unknown) (no (unknown) (unknown) VDRL titer (units (unk nown) date) remains pending. unknown) Repeat platelet count 2 drawn today. GBS obtained (unknown) (no (unknown) (unknown) Varicella/chicke (units (unknown) date) n pox status: unknown) unknown (unknown) (no (unknown) (unknown) Visit Date: (units (un known) date) 09/24/21 Last unknown) Updated by: Marcos Diaz MD (unknown) (no (unknown) (unknown) Visit Date: (units (un known) date) 10/22/21 Last unknown) Updated by: Marcos Diaz MD (unknown) (no (unknown) (unknown) Visit Date: (units (un known) date) 11/19/21 Last unknown) Updated by: Marcos Diaz MD (unknown) (no (unknown) (unknown) Visit Date: (units (un known) date) 12/11/21 Last unknown) Updated by: Divina Perez MD (unknown) (no (unknown) (unknown) Visit Date: (units (un known) date) 12/23/21 Last unknown) Updated by: Cindy Flores P.A-C (unknown) (no (unknown) (unknown) Visit Date: (units (un known) date) 01/07/22 Last unknown) Updated by: Marcos Diaz MD (unknown) (no (unknown) (unknown) Visit Date: (units (un known) date) 01/21/22 Last unknown) Updated by: Marcos Diaz MD (unknown) (no (unknown) (unknown) Visit Date: (units (un known) date) 01/29/22 Last unknown) Updated by: Marcos Diaz MD (unknown) (no (unknown) (unknown) Visit Date: (units (un known) date) 02/04/22 Last unknown) Updated by: Marcos Diaz MD (unknown) (no (unknown) (unknown) Visit Reasons: 6 (units (unknown) date) week PP, F/U RPR unknown) titer (unknown) (no (unknown) (unknown) Vitals (units (unkno wn) date) unknown) (unknown) (no (unknown) (unknown) WG (units (unkno wn) date) unknown) (unknown) (no (unknown) (unknown) Weight 175 lb (units ( unknown) date) unknown) (unknown) (no (unknown) (unknown) [place] teeth (units (u nknown) date) extracted unknown) (unknown) (no (unknown) (unknown) Yes no 144 19 (units ( unknown) date) N/A absent 4 wks unknown) (unknown) (no (unknown) (unknown) Yes no 156 23 (units ( unknown) date) N/A absent 4 wks unknown) (unknown) (no (unknown) (unknown) Zika virus (units (unk nown) date) exposure: No unknown) (unknown) (no (unknown) (unknown) alcohol intake: (units (unknown) date) former unknown) (occasional, only before ) (unknown) (no (unknown) (unknown) anatomic survey. (units (unknown) date) GBS culture at unknown) next visit discussed. PTL precautions reviewed (unknown) (no (unknown) (unknown) anatomy scan (units (u nknown) date) following her unknown) next visit in 4 weeks. (unknown) (no (unknown) (unknown) and follow-up (units ( unknown) date) will be in 2 unknown) weeks or as needed. (unknown) (no (unknown) (unknown) and submitted (units ( unknown) date) today. Labor unknown) precautions reviewed and follow-up will be in 1 week (unknown) (no (unknown) (unknown) and vitamin-C (units ( unknown) date) daily. 1 hour GDM unknown) screen and H+H also ordered. PTL precautions (unknown) (no (unknown) (unknown) anyone in either (units (unknown) date) family with: unknown) (unknown) (no (unknown) (unknown) ay occur. (units (unkn own) date) Occasional unknown) wrong-word or 'sound-alike' substitutions may have (unknown) (no (unknown) (unknown) baby's father (units ( unknown) date) had a child with unknown) defects not listed above and Denies Other (unknown) (no (unknown) (unknown) by bedside (units (unk nown) date) ultrasound. She unknown) denies contractions, bleeding, leakage of fluid per (unknown) (no (unknown) (unknown) caffeine: Yes (1 (units (unknown) date) cup/day) unknown) (unknown) (no (unknown) (unknown) carbon monox (units (u nknown) date) detector in home: unknown) Yes (unknown) (no (unknown) (unknown) complaints at (units ( unknown) date) this time. 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 Bowers; (unknown) (no (unknown) (unknown) contractions and (units (unknown) date) occasional round unknown) ligament pains. Her low back pain does (unknown) (no (unknown) (unknown) contractions, (units ( unknown) date) bleeding, leakage unknown) of fluid per vagina, or change in discharge but (unknown) (no (unknown) (unknown) contractions, (units ( unknown) date) bleeding, leakage unknown) of fluid per vagina, or change in discharge. (unknown) (no (unknown) (unknown) current (units (unkno wn) date) occupational unknown) exposures/hazards : No (unknown) (no (unknown) (unknown) daily servings (units (unknown) date) fruits/ve-4 unknown) (unknown) (no (unknown) (unknown) described, visit (units (unknown) date) schedule unknown) reviewed, ultrasounds policy reviewed, coverage 24 (unknown) (no (unknown) (unknown) discomfort, (units (un known) date) advised belly unknown) band. No other concerns. Flu shot given today. F/u (unknown) (no (unknown) (unknown) discussed, (units (unk nown) date) tuberculosis unknown) exposure discussed, CMV discussed, Toxoplasmosis (unknown) (no (unknown) (unknown) disorders, (units (unk nown) date) Denies Cystic unknown) Fibrosis, Denies Mental Retardation/Autis m, Denies (unknown) (no (unknown) (unknown) do you feel safe (units (unknown) date) at home: Yes unknown) (unknown) (no (unknown) (unknown) during the past (units (unknown) date) year weight has: unknown) remained stable (unknown) (no (unknown) (unknown) education level: (units (unknown) date) college unknown) (Associate's degree) (unknown) (no (unknown) (unknown) en 2wk (units (unkno wn) date) unknown) (unknown) (no (unknown) (unknown) evening of (units (unk nown) date) 02/10/2022 and unknown) anticipate delivery 02/11/2022. Labor precautions (unknown) (no (unknown) (unknown) movement (units (unknown) date) and denies VB, unknown) LOF, cramping and contractions. Mild pelvic bone (unknown) (no (unknown) (unknown) movement, (units (unknown) date) tone, breathing. unknown) Vertex infant 50th percentile, LYNDSAY 9. Routine (unknown) (no (unknown) (unknown) fire (units (unkno wn) date) extinguisher in unknown) home: Yes (unknown) (no (unknown) (unknown) firearms in (units (un known) date) home: No unknown) (unknown) (no (unknown) (unknown) fluid per (units (unkn own) date) vagina, or change unknown) in discharge but her baby remains active. Patient (unknown) (no (unknown) (unknown) frequency: 1-2 (units (unknown) date) times per week unknown) (unknown) (no (unknown) (unknown) gestational age (units (unknown) date) by corrected unknown) ultrasound based LOGAN. Her nausea and vomiting (unknown) (no (unknown) (unknown) gestational age. (units (unknown) date) GBS collected at unknown) her last visit is negative. Vertex confirmed (unknown) (no (unknown) (unknown) gestational age. (units (unknown) date) Patient is not unknown) having contractions but is having significant (unknown) (no (unknown) (unknown) gestational age. (units (unknown) date) She is doing well unknown) and is having no ongoing issues. She denies (unknown) (no (unknown) (unknown) have occurred. (units (unknown) date) If there are any unknown) questions, please contact the Medical Records (unknown) (no (unknown) (unknown) having her 1st (units (unknown) date) menses which unknown) started earlier today. She has no other concerns or (unknown) (no (unknown) (unknown) having (units (unkno wn) date) significant unknown) fatigue issues. She is been having some non radicular left (unknown) (no (unknown) (unknown) her baby does (units ( unknown) date) remain active. unknown) Follow-up OB ultrasound ordered to complete (unknown) (no (unknown) (unknown) her baby is (units (un known) date) increasingly unknown) active. Size equals dates for adjusted LOGAN and follow (unknown) (no (unknown) (unknown) hours a day and (units (unknown) date) participation of unknown) father in care and office visits (unknown) (no (unknown) (unknown) household (units (unkn own) date) members: unknown) significant other (unknown) (no (unknown) (unknown) housing: (units (unkno wn) date) apartment unknown) (unknown) (no (unknown) (unknown) jw (units (unkno wn) date) unknown) (unknown) (no (unknown) (unknown) ligament pain (units ( unknown) date) radiating down unknown) into her left groin with movement and activities (unknown) (no (unknown) (unknown) lives (units (unkno wn) date) independently: unknown) Yes (unknown) (no (unknown) (unknown) marital status: (units (unknown) date) unmarried,living unknown) together (unknown) (no (unknown) (unknown) no current plans (units (unknown) date) or use of unknown) control when intercourse is resumed. She is (unknown) (no (unknown) (unknown) number of (units (unkn own) date) children: 0 unknown) (unknown) (no (unknown) (unknown) obstetrical (units (un known) date) lacerations. 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 Please (unknown) (no (unknown) (unknown) or as needed. (units ( unknown) date) unknown) (unknown) (no (unknown) (unknown) pain. Good (units (unknown) date) movement. No unknown) vaginal bleeding or discharge. No contractions. (unknown) (no (unknown) (unknown) particularly (units (u nknown) date) when she is unknown) standing or sitting for prolonged periods of time. (unknown) (no (unknown) (unknown) per vagina, or (units (unknown) date) change in unknown) discharge. She is having occasional Rodolfo Lerma (unknown) (no (unknown) (unknown) pets and (units (unkno wn) date) animals: No unknown) (unknown) (no (unknown) (unknown) precautions (units (un known) date) reviewed and unknown) follow-up will be in 1 week or as needed. (unknown) (no (unknown) (unknown) precautions (units (un known) date) reviewed with the unknown) patient. (unknown) (no (unknown) (unknown) precautions, (units (u nknown) date) Listeriosis unknown) prevention and Rubella Immunization (unknown) (no (unknown) (unknown) care (units ( unknown) date) reviewed at unknown) length. Will plan to order follow-up growth and (unknown) (no (unknown) (unknown) labs (units ( unknown) date) and quad screen unknown) drawn today. Course and conduct of routine (unknown) (no (unknown) (unknown) read the note (units ( unknown) date) carefully and unknown) recognize, using context, where these substitutions (unknown) (no (unknown) (unknown) referral placed. (units (unknown) date) PTL precautions unknown) reviewed and follow-up will be in 3 weeks. (unknown) (no (unknown) (unknown) requests (units (unkno wn) date) induction prior unknown) to 40 weeks and will admit for cervical ripening on the (unknown) (no (unknown) (unknown) reviewed and (units (u nknown) date) follow-up will be unknown) in 4 weeks or as needed. (unknown) (no (unknown) (unknown) reviewed. (units (unkn own) date) unknown) (unknown) (no (unknown) (unknown) seatbelt use: (units ( unknown) date) always unknown) (unknown) (no (unknown) (unknown) second hand (units (un known) date) exposure: No unknown) (unknown) (no (unknown) (unknown) she is (units (unkno wn) date) exclusively unknown) bottle feeding. She is not resumed sexual activity but has (unknown) (no (unknown) (unknown) shooting pains (units (unknown) date) down the inner unknown) thighs. She also denies bleeding, leakage of (unknown) (no (unknown) (unknown) sided lower back (units (unknown) date) pain and will ask unknown) Dr. Bowers to evaluate for OMT. Initial (unknown) (no (unknown) (unknown) software. (units (unkn own) date) Although every unknown) effort is made to edit content, planetarium technician errors m (unknown) (no (unknown) (unknown) special phyllis (units ( unknown) date) needs: No unknown) (unknown) (no (unknown) (unknown) substance use (units ( unknown) date) type: does not unknown) use (unknown) (no (unknown) (unknown) support belt. (units ( unknown) date) Brief ultrasound unknown) was performed for patient reassurance. Good (unknown) (no (unknown) (unknown) travel history: (units (unknown) date) recent ([place] unknown) ([place] (unknown) (no (unknown) (unknown) up ultrasound (units ( unknown) date) ordered to unknown) complete anatomic survey. She continues to take iron (unknown) (no (unknown) (unknown) urinary (units (unkno wn) date) frequency, unknown) irritability, bloating and other (constipated) (unknown) (no (unknown) (unknown) vagina, or (units (unk nown) date) change in unknown) discharge but her baby remains active. VDRL titer from (unknown) (no (unknown) (unknown) water heater (units (u nknown) date) temp set < 120 unknown) deg: No (will check and adjust) (unknown) (no (unknown) (unknown) weight gain, (units (u nknown) date) Fish and mercury unknown) intake, Caffeine use, Exercise and activity, (unknown) (no (unknown) (unknown) well-balanced (units ( unknown) date) diet: daily or unknown) most days (unknown) (no (unknown) (unknown) which she (units (unkn own) date) experienced unknown) earlier in the has resolved. She is however (unknown) (no (unknown) (unknown) work/environment (units (unknown) date) al/hazards, unknown) Sexual activity, X-ray exposure, Medication use, (unknown) (no (unknown) (unknown) working smoke (units ( unknown) date) detector in home: unknown) Yes Result panel 9 (unknown) (no date) (unknown) (unknown) (no value) (units (un known) unknown) (unknown) (no date) (unknown) (unknown) (no value) (units (un known) unknown) Result panel 10 (unknown) (no (unknown) (unknown) (no value) (units (unk nown) date) unknown) (unknown) (no (unknown) (unknown) [id number] (units (unkno wn) date) unknown) (unknown) (no (unknown) (unknown) 04/07/22 (units (unkno wn) date) unknown) (unknown) (no (unknown) (unknown) Age/Sex: 22 / F (units (unknown) date) Date of Service: unknown) (unknown) (no (unknown) (unknown) Allergies (units (unkn own) date) unknown) (unknown) (no (unknown) (unknown) [place], [place] (units ( unknown) date) [id number] unknown) (unknown) (no (unknown) (unknown) Attending Dr: (units ( unknown) date) Alia Hanna unknown) (unknown) (no (unknown) (unknown) Chief Complaint: (units (unknown) date) PCN injection unknown) (unknown) (no (unknown) (unknown) : 2000 (units (unknown) date) Acct:[id number] unknown) (unknown) (no (unknown) (unknown) Dept at (units (unkno wn) date) . unknown) (unknown) (no (unknown) (unknown) Documented By: (units (unknown) date) Alia Hanna MD 04/07/22 1209 (unknown) (no (unknown) (unknown) Draft (units (unkno wn) date) unknown) (unknown) (no (unknown) (unknown) [facility] unknown) (unknown) (no (unknown) (unknown) Intake (units (unkno wn) date) unknown) (unknown) (no (unknown) (unknown) Loc: [facility] (units (unkno wn) date) unknown) (unknown) (no (unknown) (unknown) No Known (units (unkno wn) date) Allergies Allergy unknown) (Verified 02/04/22 09:00) (unknown) (no (unknown) (unknown) Note (units (unkno wn) date) unknown) (unknown) (no (unknown) (unknown) Note: (units (unkno wn) date) unknown) (unknown) (no (unknown) (unknown) Nurse Office (units (u nknown) date) Visit unknown) (unknown) (no (unknown) (unknown) Patient: (units (unkno wn) date) Franklyn Mayfield unknown) MR#: [id number] (unknown) (no (unknown) (unknown) Pt received 1.2 (units (unknown) date) million units of unknown) PCN in both her left and right glut. Pt (unknown) (no (unknown) (unknown) Reason For Visit (units (unknown) date) unknown) (unknown) (no (unknown) (unknown) Signed By: (units (unk nown) date) unknown) (unknown) (no (unknown) (unknown) Smoking Status: (units (unknown) date) Never smoker unknown) (unknown) (no (unknown) (unknown) This note may (units ( unknown) date) have been all or unknown) partially generated using voice recognition (unknown) (no (unknown) (unknown) Tobacco Status (units (unknown) date) unknown) (unknown) (no (unknown) (unknown) Visit Reasons: (units (unknown) date) PCN injection unknown) (unknown) (no (unknown) (unknown) drawn in 4-6 (units (u nknown) date) weeks. Lot # unknown) [id number] EXT: 07/30/24. (unknown) (no (unknown) (unknown) have occurred. (units (unknown) date) If there are any unknown) questions, please contact the Medical Records (unknown) (no (unknown) (unknown) may occur. (units (unk nown) date) Occasional unknown) wrong-word or 'sound-alike' substitutions may have (unknown) (no (unknown) (unknown) occurred due to (units (unknown) date) the inherent unknown) limitations of voice recognition software. Please (unknown) (no (unknown) (unknown) read the note (units ( unknown) date) carefully and unknown) recognize, using context, where these substitutions (unknown) (no (unknown) (unknown) software. (units (unkn own) date) Although every unknown) effort is made to edit content, planetarium technician errors (unknown) (no (unknown) (unknown) tolerated IM (units (u nknown) date) injections well unknown) with no reaction. Pt notified to get her RPR titer Result panel 11 (unknown) (no (unknown) (unknown) (no value) (units (unk nown) date) unknown) (unknown) (no (unknown) (unknown) [id number] (units (unkno wn) date) unknown) (unknown) (no (unknown) (unknown) 04/07/22 (units (unkno wn) date) unknown) (unknown) (no (unknown) (unknown) Age/Sex: 22 / F (units (unknown) date) Date of Service: unknown) (unknown) (no (unknown) (unknown) Allergies (units (unkn own) date) unknown) (unknown) (no (unknown) (unknown) [place] (units ( unknown) date) [id number] unknown) (unknown) (no (unknown) (unknown) Attending Dr: (units ( unknown) date) Alia Hanna unknown) (unknown) (no (unknown) (unknown) Chief Complaint: (units (unknown) date) PCN injection unknown) (unknown) (no (unknown) (unknown) : 2000 (units (unknown) date) Acct:[id number] unknown) (unknown) (no (unknown) (unknown) Dept at (units (unkno wn) date) . unknown) (unknown) (no (unknown) (unknown) Documented By: (units (unknown) date) Alia Hanna MD 04/07/22 1209 (unknown) (no (unknown) (unknown) Draft (units (unkno wn) date) unknown) (unknown) (no (unknown) (unknown) [facility]) (unknown) (no (unknown) (unknown) Intake (units (unkno wn) date) unknown) (unknown) (no (unknown) (unknown) Loc: [facility] (units (unkno wn) date) unknown) (unknown) (no (unknown) (unknown) No Known (units (unkno wn) date) Allergies Allergy unknown) (Verified 02/04/22 09:00) (unknown) (no (unknown) (unknown) Note (units (unkno wn) date) unknown) (unknown) (no (unknown) (unknown) Note: (units (unkno wn) date) unknown) (unknown) (no (unknown) (unknown) Nurse Office (units (u nknown) date) Visit unknown) (unknown) (no (unknown) (unknown) Patient: (units (unkno wn) date) Franklyn Mayfield unknown) MR#: [id number] (unknown) (no (unknown) (unknown) Pt received 1.2 (units (unknown) date) million units of unknown) PCN in both her left and right glut. Pt (unknown) (no (unknown) (unknown) Reason For Visit (units (unknown) date) unknown) (unknown) (no (unknown) (unknown) Signed By: (units (unk nown) date) unknown) (unknown) (no (unknown) (unknown) Smoking Status: (units (unknown) date) Never smoker unknown) (unknown) (no (unknown) (unknown) This note may (units ( unknown) date) have been all or unknown) partially generated using voice recognition (unknown) (no (unknown) (unknown) Tobacco Status (units (unknown) date) unknown) (unknown) (no (unknown) (unknown) Visit Reasons: (units (unknown) date) PCN injection unknown) (unknown) (no (unknown) (unknown) drawn in 4-6 (units (u nknown) date) weeks. Lot # unknown) [id number] EXT: 07/30/24. (unknown) (no (unknown) (unknown) have occurred. (units (unknown) date) If there are any unknown) questions, please contact the Medical Records (unknown) (no (unknown) (unknown) may occur. (units (unk nown) date) Occasional unknown) wrong-word or 'sound-alike' substitutions may have (unknown) (no (unknown) (unknown) occurred due to (units (unknown) date) the inherent unknown) limitations of voice recognition software. Please (unknown) (no (unknown) (unknown) read the note (units ( unknown) date) carefully and unknown) recognize, using context, where these substitutions (unknown) (no (unknown) (unknown) software. (units (unkn own) date) Although every unknown) effort is made to edit content, planetarium technician errors (unknown) (no (unknown) (unknown) tolerated IM (units (u nknown) date) injections well unknown) with no reaction. Pt notified to get her RPR titer Result panel 12 (unknown) (no (unknown) (unknown) (no value) (units (unk nown) date) unknown) (unknown) (no (unknown) (unknown) [id number] (units (unkno wn) date) unknown) (unknown) (no (unknown) (unknown) 04/07/22 (units (unkno wn) date) unknown) (unknown) (no (unknown) (unknown) 04/08/22 1102 (units ( unknown) date) unknown) (unknown) (no (unknown) (unknown) Age/Sex: 22 / F (units (unknown) date) Date of Service: unknown) (unknown) (no (unknown) (unknown) Allergies (units (unkn own) date) unknown) (unknown) (no (unknown) (unknown) [place], [place] (units ( unknown) date) [id number] unknown) (unknown) (no (unknown) (unknown) Attending Dr: (units ( unknown) date) Alia Hanna unknown) (unknown) (no (unknown) (unknown) Chief Complaint: (units (unknown) date) PCN injection unknown) (unknown) (no (unknown) (unknown) : 2000 (units (unknown) date) Acct:[id number] unknown) (unknown) (no (unknown) (unknown) Dept at (units (unkno wn) date) . unknown) (unknown) (no (unknown) (unknown) Documented By: (units (unknown) date) Alia Hanna MD 04/07/22 1209 (unknown) (no (unknown) (unknown) [facility] unknown) (unknown) (no (unknown) (unknown) Intake (units (unkno wn) date) unknown) (unknown) (no (unknown) (unknown) Loc: [facility] (units (unkno wn) date) unknown) (unknown) (no (unknown) (unknown) No Known (units (unkno wn) date) Allergies Allergy unknown) (Verified 02/04/22 09:00) (unknown) (no (unknown) (unknown) Note (units (unkno wn) date) unknown) (unknown) (no (unknown) (unknown) Note: (units (unkno wn) date) unknown) (unknown) (no (unknown) (unknown) Nurse Office (units (u nknown) date) Visit unknown) (unknown) (no (unknown) (unknown) Patient: (units (unkno wn) date) Franklyn Mayfield unknown) MR#: [id number] (unknown) (no (unknown) (unknown) Pt received 1.2 (units (unknown) date) million units of unknown) PCN in both her left and right glut. Pt (unknown) (no (unknown) (unknown) Reason For Visit (units (unknown) date) unknown) (unknown) (no (unknown) (unknown) Signed By: (units (unk nown) date) <Electronically unknown) signed by Alia Hanna MD> (unknown) (no (unknown) (unknown) Signed (units (unkno wn) date) unknown) (unknown) (no (unknown) (unknown) Smoking Status: (units (unknown) date) Never smoker unknown) (unknown) (no (unknown) (unknown) This note may (units ( unknown) date) have been all or unknown) partially generated using voice recognition (unknown) (no (unknown) (unknown) Tobacco Status (units (unknown) date) unknown) (unknown) (no (unknown) (unknown) Visit Reasons: (units (unknown) date) PCN injection unknown) (unknown) (no (unknown) (unknown) drawn in 4-6 (units (u nknown) date) weeks. Lot # unknown) [id number] EXT: 07/30/24. (unknown) (no (unknown) (unknown) have occurred. (units (unknown) date) If there are any unknown) questions, please contact the Medical Records (unknown) (no (unknown) (unknown) may occur. (units (unk nown) date) Occasional unknown) wrong-word or 'sound-alike' substitutions may have (unknown) (no (unknown) (unknown) occurred due to (units (unknown) date) the inherent unknown) limitations of voice recognition software. Please (unknown) (no (unknown) (unknown) read the note (units ( unknown) date) carefully and unknown) recognize, using context, where these substitutions (unknown) (no (unknown) (unknown) software. (units (unkn own) date) Although every unknown) effort is made to edit content, planetarium technician errors (unknown) (no (unknown) (unknown) tolerated IM (units (u nknown) date) injections well unknown) with no reaction. Pt notified to get her RPR titer Social History date description facility 2022-02-04 00:00 Never smoked tobacco (finding) [facility] 2022-03-19 00:00 Never smoked tobacco (finding) [facility] 2022-04-07 00:00 Never smoked tobacco (finding) [facility] Vital Signs date measurement value units 2022-02-04 00:00 BMI 29.6 kg/m2 2022-02-04 00:00 BP_diastolic 66 mmHg 2022-02-04 00:00 BP_systolic 112 mmHg 2022-02-04 00:00 height_metric 172.72 cm 2022-02-04 00:00 height_standard 68 in 2022-02-04 00:00 weight_metric 88.45 kg 2022-02-04 00:00 weight_standard 195 lb 2022-03-19 00:00 BMI 26.6 kg/m2 2022-03-19 00:00 BP_diastolic 84 mmHg 2022-03-19 00:00 BP_systolic 126 mmHg 2022-03-19 00:00 height_metric 172.72 cm 2022-03-19 00:00 height_standard 68 in 2022-03-19 00:00 weight_metric 79.37 kg 2022-03-19 00:00 weight_standard 174.98 lb
[2022-04-30 20:52] LABS: B. PARAPERTUSSIS- RESP PCR PAN NOT DETECTED; B. PERTUSSIS- RESP PCR PANEL NOT DETECTED; C. PNEUMONIAE- RESP PCR PANEL NOT DETECTED; CORONAVIRUS 229E-RESP PCR NOT DETECTED; CORONAVIRUS HKU1-RESP PCR NOT DETECTED; CORONAVIRUS NL63-RESP PCR NOT DETECTED; CORONAVIRUS OC43-RESP PCR NOT DETECTED; HUMAN METAPNEUMOVIRUS NOT DETECTED; INFLUENZA A- RESP PCR PANEL NOT DETECTED; INFLUENZA B - RESP PCR PANEL NOT DETECTED; M. PNEUMONIAE- RESP PCR PANEL NOT DETECTED; PARAINFLUENZA VIRUS 1 NOT DETECTED; PARAINFLUENZA VIRUS 2 NOT DETECTED; PARAINFLUENZA VIRUS 3 DETECTED; PARAINFLUENZA VIRUS 4 NOT DETECTED; RHINOVIRUS/ENTEROVIRUS NOT DETECTED; RSV- RESP PCR PANEL NOT DETECTED; SARS-CoV-2 -RESP PCR PANEL NOT DETECTED
--- NOTE | 2022-04-30 21:44 | ED Physician Documentation ---
History of Present Illness - Stated complaint Stated Complaint: CONGESTION/PRESSURE - Chief complaint Chief Complaint: [place] PAST MEDICAL HISTORY - Past Medical History Cardiovascular: None Respiratory: None Neuro: None Endocrine/Autoimmune: None GI: None ANALYTICS ANALYST: None : None HEENT: None Psych: None Musculoskeletal: None Derm: None - Past Surgical History Past Surgical History: No - Present Medications Home Medications: Ambulatory Orders Medication Instructions Recorded Confirmed No Known Home Medications 06/09/21 04/30/22 - Allergies Allergies/Adverse Reactions: Allergies Allergy/AdvReac Type Severity Reaction Status Date / Time No Known Drug Allergies Allergy Verified 04/30/22 19:31 - Social History Does the pt smoke?: No Smoking Status: Former smoker Does the pt drink ETOH?: No Does the pt have substance abuse?: No - Immunizations Immunizations are current?: Yes Results - Vitals Vitals: Vital Signs - 24 hr 04/30/22 19:26 Temperature 36.6 C Heart Rate 70 Respiratory 16 Rate Blood Pressure 137/80 H O2 Saturation 100 Oxygen O2 Source Room air - Labs Labs: Laboratory Tests 04/30/22 19:51 Nasal Adenovirus (PCR) NOT DETECTED Nasal B. parapertussis DNA (PCR) NOT DETECTED Nasal Coronavir 229E PCR NOT DETECTED Nasal Coronavir HKU1 PCR NOT DETECTED Nasal Coronavir NL63 PCR NOT DETECTED Nasal Coronavir OC43 PCR NOT DETECTED Nasal Enterovir/Rhinovir PCR NOT DETECTED Nasal Influenza B PCR NOT DETECTED Nasal Influenza A PCR NOT DETECTED Nasal Parainfluen 1 PCR NOT DETECTED Nasal Parainfluen 2 PCR NOT DETECTED Nasal Parainfluen 3 PCR DETECTED A Nasal Parainfluen 4 PCR NOT DETECTED Nasal RSV (PCR) NOT DETECTED Nasal B.pertussis DNA PCR NOT DETECTED Nasal C.pneumoniae (PCR) NOT DETECTED Daljit Human Metapneumo PCR NOT DETECTED Nasal M.pneumoniae (PCR) NOT DETECTED Nasal SARS-CoV-2 (PCR) NOT DETECTED Departure - Departure Disposition: 01 Home, Self Care Clinical Impression: Sinus congestion, Parainfluenza infection Condition: Stable Record reviewed to determine appropriate education?: Yes Instructions: ED Viral Syndrome Comments: You came to the emergency department because for about 1 month you have had some sinus congestion. You noticed today that when you bend over you have a lot of clear drainage from your nose. You have tested positive for an virus called parainfluenza this causes sinus congestion and drainage. Watery drainage is not unusual. Because you have had sinus congestion for about a month I do recommend daily saline nasal rinses in the shower followed by a spray of Flonase in each nostril. This will help with congestion. You can also find some relief of the symptoms by taking dpxr-[id number]-[id number] decongestant such as Sudafed. If despite this treatment you find that your symptoms or not improving, you develop any fevers then you should return to the ER but I do recommend follow-up closely with your primary care doctor as soon as you can
== END 2022-04-30 21:49 | disposition home or self-care (01) ==
LOC: ED 19:05
DX: B34.8 Other viral infections of unspecified site (principal); R09.81 Nasal congestion; Z20.822 Contact with and (suspected) exposure to COVID-19; Z87.891 Personal history of nicotine dependence
CPT/HCPCS: 87633; 99283

== ENCOUNTER 2023-10-06 15:49 | Outpatient (CLI) | payer OTHER ==
--- NOTE | 2023-10-06 16:27 | Sleep Patient Instructions ---
Sleep Center Visit Summary - Patient Visit Information Reason for Visit: Initial consult for evaluation of sleep disordered breathing and other sleep issues. - Patient Instructions Instructions Attached: Sleep Study Home Monitor Additional Instructions: You will be completing a sleep study, either an in-lab polysomnography (PSG) or home sleep study (HST). You will follow-up in the sleep care office after the sleep study is completed to hear the results and talk about therapy, if needed. You will be called by our office staff to schedule this appointment, but you may contact us with any questions. - Clinic Information Contact: [facility] [address] [place] [address] [email or web address] T: [phone]
--- NOTE | 2023-10-06 16:29 | SLEEP CARE CONSULTATION ---
Information from patient questionnaire entered by Froilan aMtamoros. I have reviewed and concur with the information entered by Froilan Matamoros. This document represents the service I personally performed and the decisions made by me, Berta Perdomo ARNP. History of Present Illness Service Date and Time: 10/06/2023 1549 Reason for Visit: New patient Chief Complaint: reports: Unrefreshed sleep, Snoring, Observed pauses in breathing, Frequent awakenings at night Date of Onset: SINCE 2019 Usual bedtime: 2200 Time it takes to fall asleep: 10MINS Snores at night: Yes Observed to quit breathing while asleep: Yes Sleeps alone due to snoring: No Number of times waking at night: 3 TIMES Reasons for waking at night: reports: Other (UNKNOWN) Toss, Turn, or Twitch while sleeping: Yes Recalls having dreams: Yes Usually gets out of bed at: 0730 Feels refreshed in the morning: No Morning headache: Yes Sleepy or fatigued during the day: Yes Ever fallen asleep while driving: No Takes day naps: Yes Dreams during day naps: No Prior sleep studies: No Additional HPI information: I had the pleasure of seeing FRANKLYN MAYFIELD today regarding the possibility of her having a sleep disorder. Her current complaints are frequent night awakenings, observed pauses in breathing, snoring and unrefreshed sleep. She says she has sleeping problems and was recommended she come here for evaluation. She says she wakes up a lot at night. Her boyfriend says she snores loud at night. She feels restless and tired through the day. The patient tells me that she normally goes to bed around 10 pm, and it takes her approximately 10 minutes to fall asleep. She has been told that she snores loudly and irregularly at night. She has been observed to stop breathing in her sleep. Her bed partner can still sleep in the same bed. She can recall waking up on the average of 3 times during the night. Most of the time she wakes up because of unknown reasons or bathroom. She has awakened once having dream of drowning and woke up gasping for air. There is a lot of tossing and turning in her sleep. Generally she can recall having dreams. She usually wakes up at 0730 and does not feel refreshed. She usually does have a morning headache about once a week. The headaches last 2-3 hours until she takes some medication. During the day she complains of feeling sleepy and fatigued. She has never fallen asleep while driving nor has any accident due to sleepiness. She usually tries to nap but is not always able to because she has a 19 month old , if so she naps for about 60 minutes during the day. If she naps, upon falling asleep during the day she denies having vivid dreams. She reports having impaired concentration during the day. There is somniloquy (sleep talking) but no somnambulism (sleep walking). 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 Patient is Single and lives in [place]. Have you smoked in the past 12 months: No Alcohol use: Yes Alcohol amount and frequency: A GLASS 1-2 A MONTH Caffeine use: Yes Caffeine amount and frequency: A CAN TWICE A WEEK Family History Family history of sleep disordered breathing: Yes Family Hx Sleep Apnea: Other: Snoring (AUNT), Sleep apnea - Treated (AUNT) Allergies and Home Medications Known drug allergies: No Drug allergies reviewed: Yes Home medication list reviewed: Yes (as listed) Allergy and home medication list: Allergies No Known Drug Allergies Allergy (Verified 10/06/23 15:49) Home Medications Medication Instructions Recorded Confirmed Last Taken Type Sumatriptan Succinate [Imitrex] See Rx Instructions .ROUTE .COMPLEX 10/06/23 10/06/23 Unknown History Review of Systems Weight gain over past 5 years: 40 Cardiovascular: denies: high blood pressure Gastrointestinal: denies: heartburn Neurological: reports: headaches Psychiatric: reports: anxiety Ear/Nose/Throat: reports: dry mouth/throat. denies: tonsillectomy Physical Exam Vital signs obtained and entered by: FROILAN Hand MA Blood Pressure: 128/79 (LEFT ARM) Cuff size: regular Heart Rate: 66 O2 Saturation: 100 Height: 5 ft 8 in Weight: 169 lb 6.4 oz Body Mass Index: 25.7 BMI Classification: Overweight Neck circumference: 13.25 Nostrils: patent to airflow Mouth and throat: narrow oropharynx Soft palate: long Hard palate: normal Uvula: normal Uvula visualization: 100% Mallampati Class I Tongue: enlarged in size with teeth longoria on lateral edges Tonsils: 1+ Neck: normal w/o lymphadenopathy or thyromegaly Heart: regular rate and rhythm Lungs: clear bilaterally Impression and Plan 1. Suspected Obstructive Sleep Apnea-Hypopnea Syndrome, as suggested by a history of loud and irregular snoring, observed cessation of breath while asleep, morning headache, frequent awakening during the night, unrefreshed sleep, cognitive impairment, and excessive daytime sleepiness. Narrow oropharynx and obesity are common predisposing factors for obstructive sleep apnea- hypopnea syndrome. I recommend proceeding to polysomnography to confirm the diagnosis and to assess severity. If the patient has significant sleep disordered breathing, a manual CPAP titration study will also be performed to find the optimal treatment pressure. I informed the patient of what the sleep studies involve and after some discussion, obtained agreement to proceed. The pathophysiology of obstructive sleep apnea-hypopnea syndrome was discussed with the patient and health risks of cardiovascular and cerebrovascular disease if not treated. Risks of drowsy driving discussed in detail and patient advised to avoid long distance driving and to basting puller at the first sign of drowsiness. Patient agreed to plan. * Schedule polysomnography * Avoid long distance driving or driving when feeling sleepy. * Avoid alcohol, sedative and muscle relaxant around bedtime. * Attempt to lose weight. * Review instructions provided by trained office staff on how to prepare for the sleep study. * Return for follow-up after sleep study completed. Counseling Topics: Weight control Visit Type: In Office Time Spent with Patient (minutes): 30 Provider Statement: I spent 100% of the Face to Face Visit with the patient with greater than 50% spent counseling the patient and coordination of care.
[2023-10-06 16:30] VITALS: BP 128/79; O2SAT 100
== END 2023-10-06 15:50 | disposition home or self-care (01) ==
LOC: SC 15:49
PROVIDERS: ATTEND Nurse Practitioner Family
DX: G47.8 Other sleep disorders (principal); R06.83 Snoring; R06.81 Apnea, not elsewhere classified; R51.9 Headache, unspecified; E66.3 Overweight; Z68.25 Body mass index [BMI] 25.0-25.9, adult; I48.91 Unspecified atrial fibrillation; G47.10 Hypersomnia, unspecified
CPT/HCPCS: 99203; 99212

== ENCOUNTER 2023-10-14 12:28 | Outpatient (CLI) | payer OTHER | END 2023-10-14 12:29 | disposition home or self-care (01) | LOC: SC 12:28 | PROVIDERS: ATTEND Nurse Practitioner Family | DX: R06.83 Snoring (principal); G47.8 Other sleep disorders; R06.81 Apnea, not elsewhere classified; R51.9 Headache, unspecified; G47.10 Hypersomnia, unspecified | CPT/HCPCS: 95806 ==

== ENCOUNTER 2023-11-04 08:46 | Outpatient (CLI) | payer OTHER ==
--- NOTE | 2023-11-04 09:16 | Sleep Patient Instructions ---
Sleep Center Visit Summary - Patient Visit Information Reason for Visit: Sleep study follow-up - Patient Instructions Additional Instructions: Your sleep study today was negative for significant sleep disordered breathing. You were found to have episodes of snoring. There are different ways to control snoring including weight loss, oral devices made by a dentist or surgical options through ENT specialist. You should not use oral devices that do not fit properly because they can affect your bite. You should also check insurance coverage of oral devices for snoring because they may not be cover well. You may obtain a referral to an ENT specialist through your primary provider. Follow-up as needed. - Clinic Information Contact: [facility] [address] [place] [address] [email or web address] T: [phone]
[2023-11-04 09:18] VITALS: BP 123/72; O2SAT 100
--- NOTE | 2023-11-04 09:18 | SLEEP CARE CONSULTATION ---
Information from patient questionnaire entered by Dustin Cisse. I have reviewed and concur with the information entered by Dustin Cisse. This document represents the service I personally performed and the decisions made by , Berta Perdomo ARNP. History of Present Illness Service Date and Time: 11/04/2023 0846 Accompanied by: Partner (Tutu) Initial [place] Sleepiness Scale score: 16 (10/06/23) Current [place] Sleepiness Scale score: 12 (11/04/23) Additional HPI information: FRANKLYN MAYFIELD returns for follow up and results of the recently performed home sleep study done on 10/14/23. The patient was informed of the following findings: No significant sleep disordered breathing with an average AHI of 1.7 and donald oxygen saturation of 93%. I explained the pathophysiology behind obstructive sleep apnea. Patient does not have sleep apnea and was advised how weight gain could increase the risk of developing sleep apnea in the future. I strongly encouraged the patient to lose weight. Patient has light snoring. Snoring can be reduced by weight loss. Weight loss is best achieved with diet consult. Patient instructed to contact PCP for referral. Snoring can also be treated with an oral appliance from a dentist. Advised to check insurance coverage. In addition, an ENT evaluation can be do to see if other treatment is indicated. Patient counseled not drink alcohol less than 4 hours before bedtime as it can increase snoring and apnea. Patient was cautioned about risks of drowsy driving until sleepiness symptoms resolve. Patient denies drowsy driving. Sleep Study - Results Prior sleep studies: No Polysomnography/Home Sleep Study results: Physician Impression: The quality of the study is good. The length of the study is adequate (> 240 minutes). Please also see the tabulated and graphic data. 1. No significant sleep disordered breathing, with an AHI of 1.7/hr and donald SaO2 of 93%. During the study, the patient had 11 apneas (11 obstructive, 0 central, 0 mixed) and 3 hypopneas. The longest episode lasted 95.0 seconds. Few respiratory events occurred mainly during supine sleep (supine AHI was 3.6 and non-supine, 0.60). Allergies and Home Medications Known drug allergies: No Drug allergies reviewed: Yes Home medication list reviewed: Yes (no changes) Allergy and home medication list: Allergies No Known Drug Allergies Allergy (Verified 10/06/23 15:49) Review of Systems Review of systems same as previous: Yes (no changes) Physical Exam Vital signs obtained and entered by: Berta Tabares NP Blood Pressure: 123/72 Cuff size: regular (right arm) Heart Rate: 65 O2 Saturation: 100 Height: 5 ft 8 in Weight: 171 lb 3.2 oz Body Mass Index: 26.0 BMI Classification: Overweight Impression and Plan 1. Snoring but no significant sleep disordered breathing. Patient advised that often weight loss will reduce snoring as well as apnea risk. An oral appliance can also be used for snoring. This would require a dental consultation. Patient cautioned not to use other online appliances as can cause bite issues. Patient is advised to check if insurance will cover. An ENT consult can also be helpful to determine if any other treatment is an option. 2. Overweight, unspecified. Currently patients BMI is 26. Obesity increases the risk of apnea, CPAP pressure requirements and overall health risks especially cardiovascular and diabetes. Thus patient is advised to maintain a healthy weight. * Attempt to lose weight * Avoid alcohol consumption near bedtime * The patient is cautioned about driving until sleepiness is completely resolved. * Return as needed for follow up. Counseling Topics: Weight loss health impact, Weight control Follow up with Sleep Care in: as needed Visit Type: In Office Time Spent with Patient (minutes): 12 Provider Statement: I spent 100% of the Face to Face Visit with the patient with greater than 50% spent counseling the patient and coordination of care.
== END 2023-11-04 08:47 | disposition home or self-care (01) ==
LOC: SC 08:46
PROVIDERS: ATTEND Nurse Practitioner Family
DX: R06.83 Snoring (principal); E66.3 Overweight; Z68.26 Body mass index [BMI] 26.0-26.9, adult
CPT/HCPCS: 99212